=== PATIENT | female | born 1955 | race Caucasian/White ===

== ENCOUNTER 2016-12-04 18:50 | Inpatient (IN) | payer MEDICAID, OTHER ==
[~2016-12-04] VITALS: Ht 149.9 cm; Wt 49.0 kg
[2016-12-04] MEDS ORDERED: ONDANSETRON 4 MG INJ IV STA (19:37)
[2016-12-04] MEDS ORDERED: morphine 2 MG INJ IV STA (19:37)
[2016-12-04] MEDS ORDERED: ASPIRIN 81 MG TAB PO STA (19:37)
[2016-12-04] MEDS ORDERED: BUME1TAB18 PO (19:46)
[2016-12-04] MEDS ORDERED: ASPI81TA3 PO (19:46)
[2016-12-04] MEDS ORDERED: DOCU-159 PO (19:47)
[2016-12-04] MEDS ORDERED: ERGO500037 PO (19:48)
[2016-12-04] MEDS ORDERED: MULTI PO (19:49)
[2016-12-04] MEDS ORDERED: FER325 PO (19:49)
[2016-12-04] MEDS ORDERED: POLY17PO6 PO (19:50)
[2016-12-04] MEDS ORDERED: RANI150T5 PO (19:50)
[2016-12-04 19:52] LABS: ABNORMAL IP MESSAGE 1; HEMATOCRIT 30.6 % (37.0-47.0)
[2016-12-04] MEDS ORDERED: SENN-53 PO (19:52)
[2016-12-04] MEDS ORDERED: GLIM4TAB PO (19:56)
[2016-12-04 19:57] LABS: MEAN CORPUSCULAR HEMOGLOBIN 31.6 pg (29.0-33.0); MEAN CORPUSCULAR HGB CONC 32.7 g/dl (32.0-37.0); MEAN CORPUSCULAR VOLUME 96.8 fl (82.0-101.0); MEAN PLATELET VOLUME 11.1 fl (7.4-10.4); PLATELET COUNT 88 10^3/UL (140-415); RED BLOOD COUNT 3.16 10^6/ul (4.20-5.40); RED CELL DISTRIBUTION WIDTH 17.3 % (11.5-14.5); WHITE BLOOD COUNT 6.4 10^3/ul (4.8-10.8)
[2016-12-04] MEDS ORDERED: ZOF8 PO (19:57)
[2016-12-04 20:11] LABS: INR 1.15; PARTIAL THROMBOPLASTIN TIME 29.3 Sec (25.0-35.0); PROTIME 14.7 Sec (12.2-14.2); PT RATIO 1.1
[2016-12-04] MEDS ORDERED: LANT3I SC (20:12)
[2016-12-04 20:13] LABS: POSITIVE DIFF @See below
[2016-12-04 20:21] LABS: ALBUMIN/GLOBULIN RATIO 0.83; BILIRUBIN,INDIRECT 0.7 mg/dl (0-1.1); BILIRUBIN,TOTAL 0.7 mg/dl (0.2-1.3); CALCIUM 10.1 mg/dl (8.4-10.2); CREATININE 1.3 mg/dl (0.44-1.00); POTASSIUM 4.6 mmol/L (3.5-5.1); TOTAL PROTEIN 8.8 g/dl (6.1-8.1)
[2016-12-04 20:34] LABS: TROPONIN-I 0.025 ng/ml (0.00-0.12)
[2016-12-04 20:45] LABS: EOSINOPHILS # 0.3 10^3/ul (0.0-0.5); LYMPHOCYTES # 1.5 10^3/ul (0.8-2.9); MONOCYTE # 0.6 10^3/ul (0.3-0.9); MONOCYTES % (M) 9 % (0-11); NEUTROPHIL # 3.8 10^3/ul (1.6-7.5)
[2016-12-04 20:47] LABS: PLATELET ESTIMATE DECREASED
--- NOTE | 2016-12-04 20:47 | RADRPT ---
PROCEDURE: XR Chest. CLINICAL INDICATION: Chest pain. TECHNIQUE: Single frontal chest x-ray. COMPARISON: None. FINDINGS: Right internal jugular central venous line tips in the SVC. Heart is normal in size.. There is no congestive heart failure.. Mild bibasilar atelectasis.. There is no pleural effusion. There is no pneumothorax. The osseous structures are unremarkable. IMPRESSION: No CHF or infiltrate. Mild bibasilar atelectasis. RPTAT: HMVK .Alon Yuan MD, Date Time Electronically viewed and signed by .Alon Yuan MD, on 12/04/2016 20:46 .K/
--- NOTE | 2016-12-04 22:02 | ERA ---
ER Documentation Chief Complaint Date/Time DATE: 12/04/16 TIME: 21:58 Chief Complaint bib ra from board and care for chest pain at 1800, given 1 spray nitro ems HPI This is 60-year-old female who is brought in by ambulance from rehab facility for chest pressure. Daughter is here with the patient states that patient had a prolonged stay at [facility] for some type of intra-abdominal infection or abscess. The daughter says they put a drain into drain out the pus in the abdomen. The patient states that 6 PM tonight that she has some substernal chest pressure with difficulty breathing and they called EMS. On arrival EMS put a spray of nitroglycerin which significantly improved her chest pain. She states she has had no cough or fever. The patient is an extremely poor historian. She says the pressure did not radiate to her neck or arms. Currently she has no pain ROS All systems reviewed and are negative except as per history of present illness. Medications Home Meds Reported Medications Insulin Glargine* (Lantus*) 100 Unit/Ml Soln, 30 UNIT SC Q24H, #1 VIAL TAKE 0.3ML Q24H 12/04/16 Ondansetron Hcl* (Zofran*) 8 Mg Tab, 8 MG PO BID Y for NAUSEA AND OR VOMITING, TAB 12/04/16 Glimepiride* (Glimepiride*) 4 Mg Tablet, 4 MG PO WITH BREAKFAST, TAB 12/04/16 Sennosides* (Senna Lax*) 8.6 Mg Tablet, 1 TAB PO QHS, TAB 12/04/16 Ranitidine Hcl* (Ranitidine Hcl*) 150 Mg Tablet, 150 MG PO HS, #30 TAB 12/04/16 Polyethylene Glycol* (Miralax*) 17 Gm Powd.pack, 17 GM PO DAILY Y for NEEDED , #30 PACKET 12/04/16 Multivitamins* (Theragran*) 1 Tab Tab, 1 TAB PO DAILY, TAB 12/04/16 Ferrous Sulfate* (Ferrous Sulfate*) 325 Mg Tabec, 325 MG PO DAILY, TAB 12/04/16 Ergocalciferol (Vitamin D2) (VITAMIN D2) 50,000 Unit Capsule, 51135 UNIT PO Q FRIDAY, CAP 12/04/16 Docusate Sodium* (Docusate Sodium*) 100 Mg Capsule, 100 MG PO BID, #60 CAP 12/04/16 Bumetanide* (Bumetanide*) 1 Mg Tablet, 2 MG PO BID, TAB 12/04/16 Aspirin* (Aspirin* Chew) 81 Mg Tab.chew, 81 MG PO DAILY, TAB.CHEW 12/04/16 Allergies Allergies: Coded Allergies: Penicillins (Unverified Allergy, Unknown, 12/04/16) PMhx/Soc Anesthesia Reaction: No Hx Neurological Disorder: No Hx Respiratory Disorders: Yes (RESPIRATORY FAILURE ) Hx Cardiac Disorders: No Hx Psychiatric Problems: No Hx Miscellaneous Medical Probl: Yes (DIALYSIS, ACUTE RENAL FAILURE, NORMOCYTIC ANEMIA, DKA ) Hx Alcohol Use: No Hx Substance Use: No Hx Tobacco Use: No Smoking Status: Never smoker FmHx Family History: No coronary disease Physical Exam Vitals Vital Signs Date Time Temp Pulse Resp B/P Pulse Ox O2 Delivery O2 Flow Rate FiO2 12/04/16 19:40 Nasal Cannula 2 12/04/16 18:55 100.0 89 16 97/54 100 Room Air 12/04/16 18:55 100.0 87 18 104/54 100 Physical Exam Const: Well-developed, well-nourished, disheveled Head: Atraumatic, normocephalic Eyes: Normal Conjunctiva, PERRLA, EOMI, normal sclera, no nystagmus ENT: Normal External Ears, Nose and Mouth, moist mucus membranes. Neck: Full range of motion. No meningismus, no lymphadenopathy. Resp: Clear to auscultation bilaterally, no wheezing, rhonchi, rales Cardio: Regular rate and rhythm, no murmurs, S1 S2 present Abd: Soft, non tender x 4, non distended. Normal bowel sounds, no guarding or rebound, no pulsitile abdominal masses or bruits Skin: No petechiae or rashes, scattered to the abdomene- ecchymosis , no maculopapular rash Back: No midline or flank tenderness Ext: No cyanosis, or edema, FROM x 4, normal inspection, neurovascularly intact x 4 Neur: Awake and alert, STR 5/5 x 4, sensation intact x 4, no focal findings, cerebellum intact Psych: Normal Mood and Affect Result Diagram: 12/04/16193512/04/161935 Results 24 hrs Laboratory Tests Test 12/04/16 19:36 White Blood Count 6.410^3/ul Red Blood Count 3.1610^6/ul Hemoglobin 10.0g/dl Hematocrit 30.6% Mean Corpuscular Volume 96.8fl Mean Corpuscular Hemoglobin 31.6pg Mean Corpuscular Hemoglobin Concent 32.7g/dl Red Cell Distribution Width 17.3% Platelet Count 8810^3/UL Mean Platelet Volume 11.1fl Neutrophils % % Segmented Neutrophils % (Manual) 59% Band Neutrophils % (Manual) 5% Lymphocytes % % Lymphocytes % (Manual) 23% Monocytes % % Monocytes % (Manual) 9% Eosinophils % % Eosinophils % (Manual) 4.0% Basophils % % Nucleated Red Blood Cells % 0.0/100WBC Neutrophils # 3.810^3/ul Neutrophils # (Manual) 3.810^3/ul Band Neutrophils # 0.310^3/ul Absolute Lymphocytes (Manual) 1.410^3/ul Lymphocytes # 1.510^3/ul Monocytes # 0.610^3/ul Absolute Monocytes (Manual) 0.510^3/ul Eosinophils # 0.310^3/ul Basophils # 10^3/ul Nucleated Red Blood Cells # 10^3/ul Platelet Estimate DECREASED Prothrombin Time 14.7Sec Prothrombin Time Ratio 1.1 INR International Normalized Ratio 1.15 Activated Partial Thromboplast Time 29.3Sec Sodium Level 137mmol/L Potassium Level 4.6mmol/L Chloride Level 96mmol/L Carbon Dioxide Level 25mmol/L Anion Gap 21 Blood Urea Nitrogen 36mg/dl Creatinine 1.30mg/dl Glucose Level 204mg/dl Calcium Level 10.1mg/dl Total Bilirubin 0.7mg/dl Direct Bilirubin 0.00mg/dl Indirect Bilirubin 0.7mg/dl Aspartate Amino Transf (AST/SGOT) 67IU/L Alanine Aminotransferase (ALT/SGPT) 21IU/L Alkaline Phosphatase 152IU/L Troponin I 0.025ng/ml B-Type Natriuretic Peptide 1830PG/ML Total Protein 8.8g/dl Albumin 4.0g/dl Globulin 4.80g/dl Albumin/Globulin Ratio 0.83 Current Medications Medications (Trade) Dose Ordered Sig/Karmen Route PRN Reason Start Time Stop Time Status Last Admin Dose Admin Aspirin (Aspirin) 162 mg ONCE STAT PO 12/04/16 19:37 12/04/16 19:40 DC 12/04/16 19:52 Morphine Sulfate (morphine) 2 mg ONCE STAT IV 12/04/16 19:37 12/04/16 19:40 DC 12/04/16 19:53 Ondansetron HCl (Zofran Inj) 4 mg ONCE STAT IV 12/04/16 19:37 12/04/16 19:40 DC 12/04/16 19:52 Procedures/MDM PROCEDURE: XR Chest. CLINICAL INDICATION: Chest pain. TECHNIQUE: Single frontal chest x-ray. COMPARISON: None. FINDINGS: Right internal jugular central venous line tips in the SVC. Heart is normal in size.. There is no congestive heart failure.. Mild bibasilar atelectasis.. There is no pleural effusion. There is no pneumothorax. The osseous structures are unremarkable. IMPRESSION: No CHF or infiltrate. Mild bibasilar atelectasis. RPTAT: HMVK .Alon Yuan MD, MD Date Time Electronically viewed and signed by .Alon Yuan MD, on 12/04/2016 20:46 .K/ CC: BULL PALAFOX DO EKG: Rate/Rhythm: Normal sinus rhythm with a right superior axis deviation, heart rate86 QRS, ST, QT: NORMAL SD, QRS, QT] Impression: NORMAL EKG Patient's symptoms are concerning for cardiac cause will require inpatient workup and continuous monitoring. Further w/u for ischemia, arrhythmia, PE or dissection will be deferred to the inpatient team. Accepting Care Team: Current data and ongoing care discussed. Time: Time of admission Primary Provider: [XOXOXO] Consulting: [XOXOXO] Outstanding Data: none Departure Diagnosis: Primary Impression: Chest pain Qualified Code: R07.9 - Chest pain, unspecified type Condition: Stable BULL PALAFOX DO Dec 04, 2016 22:02
[2016-12-04] MEDS ORDERED: ONDANSETRON 4 MG INJ IV PRN (22:30)
[2016-12-04] MEDS ORDERED: ACETAMINOPHEN 325 MG TAB PO PRN (22:30)
[2016-12-04 23:54] VITALS: TEMP 100
[2016-12-05] VITALS (11 sets, daily range): BP systolic 102–135; BP diastolic 59–81; PULSE 77–115; RESP 15–18; BMI 35.6
[2016-12-05] MEDS ORDERED: DEXTROSE 50% 50 ML SYRINGE IV PRN ×2 (03:00)
[2016-12-05] MEDS ORDERED: GLUCOSE GEL 15 GRAM TUBE BUCCAL PRN (03:00)
[2016-12-05] MEDS: SOD CHLORIDE 0.9% 1,000 ML IV SCH ×2 (03:00→06:15)
[2016-12-05] MEDS ORDERED: GLUCOSE GEL 15 GRAM TUBE PO PRN ×2 (03:00)
[2016-12-05] MEDS ORDERED: ONDANSETRON 4 MG INJ IV PRN (03:00)
[2016-12-05] MEDS ORDERED: POLYETHYLENE GLYCOL 17 GM PACKET PO PRN (03:00)
[2016-12-05] MEDS ORDERED: DOCUSATE SODIUM 100 MG CAP PO PRN (03:00)
[2016-12-05] MEDS ORDERED: BISACODYL (EC) 5 MG TAB PO PRN (03:00)
[2016-12-05] MEDS ORDERED: GLUCAGON 1 MG INJ IM PRN (03:00)
[2016-12-05] MEDS ORDERED: INSULIN GLARGINE [LANtus] 3 ML PEN SC SCH (03:00)
[2016-12-05] MEDS ORDERED: NACL 0.9% 3 ML SYG IV SCH (03:00)
[2016-12-05] MEDS ORDERED: ACETAMINOPHEN 325 MG TAB PO PRN (03:00)
[2016-12-05] MEDS ORDERED: ONDANSETRON 4 MG TAB PO PRN (03:00)
[2016-12-05 03:13] LABS: ABNORMAL IP MESSAGE 1; BASOPHILS % 0.7 % (0.0-2.0); EOSINOPHILS # 0.1 10^3/ul (0.0-0.5); EOSINOPHILS % 1.5 % (0.0-7.0); HEMATOCRIT 31.1 % (37.0-47.0); HEMOGLOBIN 9.9 g/dl (12.0-16.0); LYMPHOCYTES # 0.9 10^3/ul (0.8-2.9); LYMPHOCYTES % 15.6 % (15.0-51.0); MEAN CORPUSCULAR HEMOGLOBIN 30.7 pg (29.0-33.0); MEAN CORPUSCULAR HGB CONC 31.8 g/dl (32.0-37.0); MEAN CORPUSCULAR VOLUME 96.6 fl (82.0-101.0); MEAN PLATELET VOLUME 10.5 fl (7.4-10.4); MONOCYTE # 0.5 10^3/ul (0.3-0.9); MONOCYTES % 7.9 % (0.0-11.0); NEUTROPHIL # 4.4 10^3/ul (1.6-7.5); NEUTROPHILS % 74.1 % (39.0-77.0); PLATELET COUNT 79 10^3/UL (140-415); RED BLOOD COUNT 3.22 10^6/ul (4.20-5.40); RED CELL DISTRIBUTION WIDTH 17.3 % (11.5-14.5)
[2016-12-05 03:29] LABS: POSITIVE DIFF @See below
[2016-12-05] MEDS ORDERED: PENDING SANTYL ORDER FOR WOUND CARE XX PRN (03:30)
[2016-12-05] MEDS ORDERED: KETOROLAC 15 MG INJ IV ONE (03:51)
[2016-12-05 03:52] LABS: MAGNESIUM 2.3 mg/dl (1.7-2.5)
--- NOTE | 2016-12-05 03:55 | HP ---
Date/Time of Note Date/Time of Note DATE: 12/05/16 TIME: 03:37 Assessment/Plan VTE Prophylaxis VTE Prophylaxis Intervention: SCD's Lines/Catheters IV [facility]from [facility] Saline Lock Urinary Cath still in place: Yes Reason Cath still needed: other (indicate) (clinical condition/deconditioning, illness) Assessment/Plan Chief Complaint/Hosp Course This is a 60-year-old female being admitted to the telemetry floor for: #1 chest pain: Rule out ACS versus musculoskeletal. Trend cardiac troponins, chest x-ray within normal values, 2D echocardiogram, cardiology consult. Patient does have tenderness to palpation of the left anterior chest wall will also provide her one-time dose of Toradol 15 mg IV. Check lipids and TSH. Patient has an elevated BNP but she does not appear to be fluid overloaded, again we will check a echocardiogram to assess her heart morphology. #2 Renal failure, unknown etiology: Patient is currently on hemodialysis however patient does appear to be producing urine in her Robert. She currently goes to dialysis Friday at [facility] and last had an on Friday. At the current time we will consult nephrology for further assistance. Her creatinine right now is 1.30. I do not have previous baseline at this time we will obtain records from [facility] before ordering any further imaging studies. I will though check a UA and fractional excretion sodium. #3 diabetes mellitus: We will check a hemoglobin A1c continue home Lantus dose and put patient on insulin sliding scale. #4 Deconditioning: At the current time I am unsure as to what exactly has let the patient to go from being completely independent to now being bedridden. The daughter herself does not know exactly her medical condition that was treated at recent hospital stay. At the current time will obtain hospital records from [facility], the nursing staff is aware of this and they are going to help in obtaining these records.. Based on her appearance to me there is a possibility that she may have an underlying malignancy, however I am not sure of this and we will obtain further records to confirm. #5 anemia: Normocytic anemia: Etiology of this unknown at this time however this could be secondary to her end-stage renal disease however again there is possibility for underlying malignancy, we will obtain records from [facility] to get a better history. #6 thrombocytopenia: Platelet count is 88. At this time will obtain medical records from [facility], again there is possible concern for underlying malignancy for this patient. If we are unable to ascertain because of thrombocytopenia will consider hematology consultation. #7 DVT GI prophylaxis: SCDs, Protonix Further treatment strategy will be implemented as per the clinical course Problems: HPI/ROS Admit Date/Time Admit Date/Time Dec 04, 2016 at 22:10 Hx of Present Illness Chief complaint: Chest pressure This is 60-year-old female who is brought in by ambulance from rehab facility for chest pressure. Daughter was at the bedside and history is obtained from her as well as the patient however I do feel that some of this history is limited. Daughter is here with the patient states that patient had a prolonged stay at [facility] for some type of intra-abdominal infection or abscess. The daughter states that she had a drain put in her abdomen to take out some pus. She was approximately there for 4 months and then recently was discharged to [facility] which she suspects is a nursing facility. Her mom remains at this time bedridden. She has a Robert catheter in place. The daughter herself does not know exactly what her diagnosis was while she was at the hospital. She was still in the ICU for some time as well. Patient also recently has been started on dialysis and had access placed at the right anterior chest wall The patient states that 6 PM tonight that she has some substernal chest pressure with difficulty breathing and they called EMS. On arrival EMS put a spray of nitroglycerin which significantly improved her chest pain. She states she has had no cough or fever. The patient herself on my examination stated that her chest pressure had improved. She denies any nausea vomiting or fevers though she did state that she had some cold sweats. Allergies: Penicillin Medications: See Jun Const: As per HPI Eyes : No pain discharge or redness or change in visual acuity ENT: No pain, sore throat, congestion, congestion, dysphagia or discharge Respiratory: No shortness of breath, cough, sputum, wheezing, or pleuritic pain Cardiovascular: As per HPI GI : no change in appetite, abdominal pain, nausea, vomiting, diarrhea, constipation, or change in the color his stool Genitourinary: As per HPI Musculoskeletal: No joint pain, back pain, neck pain, restricted range of motion in neck or joints Skin: No rash, bruising or hives Neuro: No headache, dizziness, syncope, seizure, focal weakness Endocrine: No polyuria, polydipsia, temperature intolerance Psych: No hallucination, depression, anxiety or suicidal ideation PMH/Family/Social Past Medical History Recent prolonged approximately 4 month hospital stay including time in the ICU, diabetes mellitus, end-stage renal disease Past Surgical History Past Surgical Hx: no surgical history Family History Significant Family History: no pertinent family hx Social History Alcohol Use: none Smoking Status: Never smoker Drug Use: none Exam/Review of Systems Vital Signs Vitals Vital Signs Date Time Temp Pulse Resp B/P Pulse Ox O2 Delivery O2 Flow Rate FiO2 12/05/16 00:12 84 12/04/16 23:54 100.0 18 116/75 100 Room Air 12/04/16 19:40 2 Exam Exam General: Patient is a frail-appearing female lying in bed with minimal movement but in no acute distress HEENT: Atraumatic, normocephalic. The pupils are equal, round and reactive. Extraocular motor are intact, patchy hair loss Neck: Supple with full range of motion. No rigidity or meningismus Chest: Tender to palpation over the left anterior chest wall, right anterior chest wall dialysis access catheter Lungs: Clear to auscultation bilaterally no crackles rales or wheezing Heart: Normal S1-S2, Regular rhythm and rate. No overt murmurs appreciated Abdomen: Soft , nontender, nondistended , bowel sounds are present. No guarding no rebound tenderness , No masses or organomegaly. No costovertebral temporal angle mass Extremities: Normal to inspection, no edema no cyanosis, strength unable to be assessed at this time as patient is feeling tired Neurologic: Normal mental status, speech normal, cranial nerves II through XII are intact, unable to assess ambulation patient has been bedridden secondary to unknown medical condition Genitourinary: Chronic Robert in place Additional Comments PROCEDURE: XR Chest. CLINICAL INDICATION: Chest pain. TECHNIQUE: Single frontal chest x-ray. COMPARISON: None. FINDINGS: Right internal jugular central venous line tips in the SVC. Heart is normal in size.. There is no congestive heart failure.. Mild bibasilar atelectasis.. There is no pleural effusion. There is no pneumothorax. The osseous structures are unremarkable. IMPRESSION: No CHF or infiltrate. Mild bibasilar atelectasis. RPTAT: HMVK .Alon Yuan MD, Date Time Electronically viewed and signed by .Alon Yuan MD, on 12/04/2016 20:46 .K/ CC: BULL PALAFOX DO EKG: Rate/Rhythm: Normal sinus rhythm with a right superior axis deviation, heart rate86 QRS, ST, QT: NORMAL WI, QRS, QT] Impression: NORMAL EKG As per ED physician documentation Labs Result Diagram: 12/04/16193512/04/161935 Medications Medications Current Medications Ondansetron HCl (Zofran Inj) 4 mg Q6H PRN IV NAUSEA AND/OR VOMITING; Start 02/11 at 03:00 Acetaminophen (Tylenol Tab) 650 mg Q6H PRN PO PAIN LEVEL 1-3 OR FEVER; Start at 03:00 Morphine Sulfate (morphine) 2 mg Q4H PRN IV PAIN LEVEL 7-10; Start 12/05/16 at 03:00 Docusate Sodium (Colace) 100 mg Q12H PRN PO CONSTIPATION; Start 12/05/16 at 03: 00 Bisacodyl (Dulcolax) 5 mg DAILY PRN PO CONSTIPATION; Start 12/05/16 at 03:00 Pantoprazole 40 mg 40 mg DAILY@06 PO ; Start 12/05/16 at 06:00 Sodium Chloride (NS) 1,000 ml @ 75 mls/hr [id number] IV ; Start 12/05/16 at 03:00 Aspirin (Aspirin) 81 mg DAILY PO ; Start 12/05/16 at 09:00 Docusate Sodium (Colace) 100 mg BID PO ; Start 12/05/16 at 09:00 Ferrous Sulfate (Ferrous Sulfate (Ec)) 325 mg DAILY PO ; Start 12/05/16 at 09:00 Insulin Glargine (Lantus) 30 unit Q24H SC ; Start 12/05/16 at 03:00 Multivitamins Therapeutic (Theragran) 1 tab DAILY PO ; Start 12/05/16 at 09:00 Ondansetron HCl (Zofran Tab) 8 mg BID PRN PO NAUSEA AND/OR VOMITING; Start 02/11 at 03:00 Polyethylene Glycol (Miralax) 17 gm DAILY PRN PO NEEDED; Start 12/05/16 at 03:00 Senna (Senokot) 1 tab QHS PO ; Start 12/05/16 at 21:00 Miscellaneous Information 1 ea NOTE XX ; Start 12/05/16 at 03:00 Glucose (Glutose) 15 gm Q15M PRN PO DECREASED GLUCOSE; Start 12/05/16 at 03:00 Glucose (Glutose) 22.5 gm Q15M PRN PO DECREASED GLUCOSE; Start 12/05/16 at 03: 00 Dextrose (D50w Syringe) 25 ml Q15M PRN IV DECREASED GLUCOSE; Start 12/05/16 at 03:00 Dextrose (D50w Syringe) 50 ml Q15M PRN IV DECREASED GLUCOSE; Start 12/05/16 at 03:00 Glucagon (Glucagen) 1 mg Q15M PRN IM DECREASED GLUCOSE; Start 12/05/16 at 03:00 Glucose (Glutose) 15 gm Q15M PRN BUCCAL DECREASED GLUCOSE; Start 12/05/16 at 03 :00 Miscellaneous Information (Pending [facility] Order For Wound Care) This patient caba... PRN PRN XX WOUND CARE; Start 12/05/16 at 03:30 ANGELO MERA Dec 05, 2016 03:47
[2016-12-05 04:01] LABS: CK-MB 6.31 ng/ml (0.0-2.4); TROPONIN-I 0.027 ng/ml (0.00-0.12)
[2016-12-05 04:56] LABS: THYROID STIMULATING HORMONE 2.5 MIU/L (0.465-4.680)
[2016-12-05] MEDS ORDERED: PANTOPRAZOLE (EC) 40 MG TAB PO SCH (06:00)
[2016-12-05] MEDS: ACCU-CHEK XX SCH ×4 (07:30→21:00)
[2016-12-05] MEDS: DOCUSATE SODIUM 100 MG CAP PO SCH ×2 (08:55→21:10)
[2016-12-05] MEDS: ASPIRIN 81 MG TAB PO SCH (08:55)
[2016-12-05] MEDS: MULTIVITAMINS THERAPEUTIC TAB PO SCH (08:55)
[2016-12-05] MEDS: FERROUS SULFATE (EC) 325 MG TAB PO SCH (08:55)
[2016-12-05] MEDS: INSULIN GLARGINE [LANtus] 3 ML PEN SC SCH (09:00)
[2016-12-05 10:49] LABS: CK-MB 5.79 ng/ml (0.0-2.4); TROPONIN-I 0.023 ng/ml (0.00-0.12)
--- NOTE | 2016-12-05 14:30 | PN ---
Date/Time of Note Date/Time of Note DATE: 12/05/16 TIME: 14:14 Assessment/Plan VTE Prophylaxis VTE Prophylaxis Intervention: SCD's Lines/Catheters IV Catheter Type (from Nrsg): Peripheral IV Urinary Cath still in place: Yes Reason Cath still needed: other (indicate) (will talk to nephrology) Assessment/Plan Assessment/Plan 60 yo F with recent [address] [facility] for sepsis 2/2 MSSA bacteremia from groin abscess c/b ARF 2/2 ATN and sepsis requiring HD on which she remains, NSTEMI (type 2), DKA, respiratory failure requiring trach, and critical illness myopathy sent to [facility] 8.3 for HERMES. Pt transferred to [facility] overnight when she complained of chest pain. Etio of chest pain unclear. Given elevated BNP, will check TTE. No evidence of ACS based on negative serial troponin. #chest pain -await TTE -consider cardiology consult in AM pending test results #ARF requiring intermittent HD -renal cs -dc sparks #critical illness myopathy: PT/OT #DM2: continue insulin dispo: possibly back to [facility] in 1-2 days Subjective 24 Hr Interval Summary Free Text/Dictation [facility] notes received. Pt admitted 3..17-11.28.17. Pt with pmhx cryptogenic cirrhosis (?BENOIT). Had presented intiialyl with body pain, CP. Initially admitted to ICU for sepsis, DKA, NSTEMI (type 2, trop max 0.155). Also found to have MSSA bacteremia from R groin abscess, treated with IR drainage 4.4 and 2w of abx. Pt with hypoxic respiratory failure from sepsis, volume overload, critical illness myopathy. Intubated 3.30--> Underwent trach 4.27 Pt with ARF from sepsis/ATN. Started on HD. Pt also noted to have stage 4 coccyx wound. BAL 4.6-->fluid with just inflammation Permacath placed 5.4 Patient also noted to have RLQ mass. sp IR drainage, catheter was in for 3 weeks. Path of drainage contents non malignant, no evidence of fungal infection scheduled discharge meds: bumex, ergocalciferol, iron, lantus/aspart, h2b, miralax, senna. After being transferred to [facility] 8.3, pt transferred to [facility] overnight because she stated that her chest hurt. I spoke to patient this AM. She denied any particular complaints. Stated that she felt very weak. I asked her to sign the ADALI for [place], but she said her arms were too weak for her to write. Exam/Review of Systems Vital Signs Vitals Vital Signs Date Time Temp Pulse Resp B/P Pulse Ox O2 Delivery O2 Flow Rate FiO2 12/05/16 12:00 95 12/05/16 11:20 98.9 18 112/65 100 12/04/16 23:54 Room Air 12/04/16 19:40 2 Intake and Output 12/04/16 12/04/16 12/05/16 15:00 23:00 07:00 Intake Total 125 ml Output Total 350 ml Balance -225 ml Exam frail woman sitting up in bed +permacath in R chest no mrg lungs clear abd soft no rash elevated BNP and CK-MBs noted Results Result Diagram: 12/05/16 0251 12/04/16 1936 Results 24 hrs Laboratory Tests Test 12/04/16 19:36 12/05/16 02:51 12/05/16 09:38 White Blood Count 6.4 6.0 Red Blood Count 3.16 L 3.22 L Hemoglobin 10.0 L 9.9 L Hematocrit 30.6 L 31.1 L Mean Corpuscular Volume 96.8 96.6 Mean Corpuscular Hemoglobin 31.6 30.7 Mean Corpuscular Hemoglobin Concent 32.7 31.8 L Red Cell Distribution Width 17.3 H 17.3 H Platelet Count 88 L 79 L Mean Platelet Volume 11.1 H 10.5 H Neutrophils % 74.1 Segmented Neutrophils % (Manual) 59 Band Neutrophils % (Manual) 5 H Lymphocytes % 15.6 Lymphocytes % (Manual) 23 Monocytes % 7.9 Monocytes % (Manual) 9 Eosinophils % 1.5 Eosinophils % (Manual) 4.0 Basophils % 0.7 Nucleated Red Blood Cells % 0.0 0.0 Neutrophils # 3.8 4.4 Neutrophils # (Manual) 3.8 Band Neutrophils # 0.3 Absolute Lymphocytes (Manual) 1.4 Lymphocytes # 1.5 0.9 Monocytes # 0.6 0.5 Absolute Monocytes (Manual) 0.5 Eosinophils # 0.3 0.1 Basophils # 0.0 Nucleated Red Blood Cells # 0.0 Platelet Estimate DECREASED Prothrombin Time 14.7 H Prothrombin Time Ratio 1.1 INR International Normalized Ratio 1.15 Activated Partial Thromboplast Time 29.3 Sodium Level 137 Potassium Level 4.6 Chloride Level 96 L Carbon Dioxide Level 25 Anion Gap 21 H Blood Urea Nitrogen 36 H Creatinine 1.30 H Glucose Level 204 Calcium Level 10.1 Total Bilirubin 0.7 Direct Bilirubin 0.00 Indirect Bilirubin 0.7 Aspartate Amino Transf (AST/SGOT) 67 H Alanine Aminotransferase (ALT/SGPT) 21 Alkaline Phosphatase 152 H Troponin I 0.025 0.027 0.023 B-Type Natriuretic Peptide 1830 H Total Protein 8.8 H Albumin 4.0 Globulin 4.80 H Albumin/Globulin Ratio 0.83 Hemoglobin A1c 5.2 Magnesium Level 2.3 Creatine Kinase 70 60 Creatine Kinase Index 9.0 9.7 Creatinine Kinase MB (Mass) 6.31 H 5.79 H Thyroid Stimulating Hormone (TSH) 2.500 Medications Medications Current Medications Ondansetron HCl (Zofran Inj) 4 mg Q6H PRN IV NAUSEA AND/OR VOMITING; Start 02/11 at 03:00 Acetaminophen (Tylenol Tab) 650 mg Q6H PRN PO PAIN LEVEL 1-3 OR FEVER; Start at 03:00 Morphine Sulfate (morphine) 2 mg Q4H PRN IV PAIN LEVEL 7-10; Start 12/05/16 at 03:00 Docusate Sodium (Colace) 100 mg Q12H PRN PO CONSTIPATION; Start 12/05/16 at 03: 00 Bisacodyl (Dulcolax) 5 mg DAILY PRN PO CONSTIPATION; Start 12/05/16 at 03:00 Pantoprazole 40 mg 40 mg DAILY@06 PO Last administered on 12/05/16 06:22; Admin Dose 40 MG; Start 12/05/16 at 06:00 Sodium Chloride (NS) 1,000 ml @ 75 mls/hr [id number] IV Last administered on 12/05 06:15; Admin Dose 75 MLS/HR; Start 12/05/16 at 03:00 Aspirin (Aspirin) 81 mg DAILY PO Last administered on 12/05/16 08:55; Admin Dose 81 MG; Start 12/05/16 at 09:00 Docusate Sodium (Colace) 100 mg BID PO Last administered on 12/05/16 08:55; Admin Dose 100 MG; Start 12/05/16 at 09:00 Ferrous Sulfate (Ferrous Sulfate (Ec)) 325 mg DAILY PO Last administered on 08:55; Admin Dose 325 MG; Start 12/05/16 at 09:00 Multivitamins Therapeutic (Theragran) 1 tab DAILY PO Last administered on 08:55; Admin Dose 1 TAB; Start 12/05/16 at 09:00 Ondansetron HCl (Zofran Tab) 8 mg BID PRN PO NAUSEA AND/OR VOMITING; Start 02/11 at 03:00 Polyethylene Glycol (Miralax) 17 gm DAILY PRN PO NEEDED; Start 12/05/16 at 03:00 Senna (Senokot) 1 tab QHS PO ; Start 12/05/16 at 21:00 Miscellaneous Information 1 ea NOTE XX ; Start 12/05/16 at 03:00 Glucose (Glutose) 15 gm Q15M PRN PO DECREASED GLUCOSE; Start 12/05/16 at 03:00 Glucose (Glutose) 22.5 gm Q15M PRN PO DECREASED GLUCOSE; Start 12/05/16 at 03: 00 Dextrose (D50w Syringe) 25 ml Q15M PRN IV DECREASED GLUCOSE; Start 12/05/16 at 03:00 Dextrose (D50w Syringe) 50 ml Q15M PRN IV DECREASED GLUCOSE; Start 12/05/16 at 03:00 Glucagon (Glucagen) 1 mg Q15M PRN IM DECREASED GLUCOSE; Start 12/05/16 at 03:00 Glucose (Glutose) 15 gm Q15M PRN BUCCAL DECREASED GLUCOSE; Start 12/05/16 at 03 :00 Miscellaneous Information (Pending [facility] Order For Wound Care) This patient caba... PRN PRN XX WOUND CARE; Start 12/05/16 at 03:30 Insulin Glargine (Lantus) 30 unit Q24H SC Last administered on 12/05/16 09:00 ; Admin Dose 30 UNIT; Start 12/05/16 at 06:00 BABS RODRIGUEZ MD Dec 05, 2016 14:25
[2016-12-05 15:49] LABS: ALBUMIN 4.1 g/dl (3.3-4.9); ALBUMIN/GLOBULIN RATIO 0.91; BILIRUBIN,INDIRECT 1.1 mg/dl (0-1.1); BILIRUBIN,TOTAL 1.1 mg/dl (0.2-1.3); CALCIUM 10.4 mg/dl (8.4-10.2); CREATININE 1.63 mg/dl (0.44-1.00); PHOSPHORUS 4.3 mg/dl (2.5-4.9); POTASSIUM 4.2 mmol/L (3.5-5.1); TOTAL PROTEIN 8.6 g/dl (6.1-8.1)
--- NOTE | 2016-12-05 16:00 | RADRPT ---
PROCEDURE: US Abdomen and Retroperitoneum. CLINICAL INDICATION: Abnormal liver function tests. TECHNIQUE: Multiple real-time longitudinal and transverse images were acquired of the patient's ab domen and retroperitoneum utilizing a curved array transducer. COMPARISON: No prior studies are available for comparison. FINDINGS: The liver is normal in size and has a diffusely heterogeneous appearance with mildly nodular surface . There is no focal hepatic lesion. Color Doppler and pulsed Doppler sonography demonstrate normal a ntegrade flow in the portal vein. The gallbladder is normal with no stones or wall thickening. The bile ducts are normal with the common bile duct measuring 4.1 mm in diameter. The spleen is enlarged. There is no focal splenic lesion. The pancreas is partially seen and is unremarkable. There is no free fluid. The right kidney measures 11.7 cm and the left kidney measures 12.2 cm. There is no renal mass. There is no hydronephrosis or calculus. The abdominal aorta is not dilated. The inferior vena cava is unremarkable. IMPRESSION: 1. Diffusely heterogeneous liver with nodular surface. This may indicate cirrhosis. An infiltrati ve process can also give this appearance. Clinical correlation is advised. 2. Splenomegaly. 3. Otherwise normal ultrasound of the abdomen and retroperitoneum. RPTAT: QQ .Jarod Strange MD, Date Time Electronically viewed and signed by .Jarod Strange MD, on 12/05/2016 15:59 .R/
[2016-12-05 16:32] LABS: IRON 23 ug/dl (35-150)
[2016-12-05 16:41] LABS: TOTAL IRON BINDING CAPACITY 229 ug/dl (241-421)
[2016-12-05] MEDS: BUMETANIDE 1 MG TAB PO SCH (17:30)
--- NOTE | 2016-12-05 17:34 | CONS ---
DATE OF ADMISSION: 12/04/2016 DATE OF CONSULTATION: 12/05/2016 Thank you, Dr. Do, for asking me to participate in the medical management of this patient. REASON FOR CONSULTATION: Renal failure. HISTORY OF PRESENT ILLNESS: This 60-year-old female was admitted yesterday through the emergency room after she presented with chest pain. The patient is [place] speaking and a poor historian; however, she has her 2 daughters who were in the room with her and speak [place] Citizen. According to the daughters, of the patient was in her usual state of health until June of this year when she developed some right-sided abdominal pain and was admitted to [facility]. While in the hospital the patient was found to have a "blood infection" and eventually her organs failed. The patient eventually required intubation and respiratory support on the ventilator because of respiratory failure. She eventually had to have a tracheostomy placed. She was on the ventilator for approximately 3 months. In addition to the respiratory failure, the patient had renal failure and required dialysis. The patient has been on hemodialysis at [facility]. The patient was then discharged 1 week ago to a local long-term. At the long-term the patient developed chest pain yesterday and was brought to [facility] for further evaluation and treatment. The patient has been getting dialyzed the past week at [facility] in [place]. 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 According to the daughters, the patient was having lower abdominal pain for some time. While in [facility], the patient was found to have a "growth" in the lower abdomen. Biopsies were attempted twice, but were unsuccessful. They told the daughter that this could be cancer, but no definite diagnosis was made. The patient apparently has been eating. The patient has, however, lost weight during this current illness. The patient has had diabetes and was controlled with pills up until recently when she was on insulin at [facility]. PAST MEDICAL HISTORY: Remarkable for type 2 diabetes mellitus, which she has had for approximately 4 years. The patient has had no history of hypertension, heart disease, asthma. There is some question that the patient may have had a urinary tract infection. The patient has had other medical issues, according to the chart, including anemia and thrombocytopenia. ALLERGIES: ALLERGY TO PENICILLIN. MEDICATION: Include the following, senna 1 tablet daily, aspirin 81 mg a day, Docusate sodium 100 mg twice a day, ferrous sulfate 325 mg a day, multivitamins 1 daily, Pantoprazole 40 mg a day, Lantus insulin 30 units a day, Zofran p.r.n., acetaminophen p.r.n. morphine sulfate 2 mg IV p.r.n. pain, MiraLAX p.r.n. PHYSICAL EXAMINATION: GENERAL: At this time reveals a cachectic female in no apparent distress. She is awake and alert. She has a right internal jugular PermCath in place which was being used for hemodialysis. HEENT: Head normocephalic. Eyes, extraocular muscles intact. Nose and mouth are normal. NECK: Supple. No neck vein distention. There is a scar over the neck midline probably from previous tracheostomy. She has no neck vein distention. CHEST: She is tender over the left upper chest wall. LUNGS: Clear to auscultation and percussion. HEART: Regular rhythm. No murmurs, gallops, or rubs. ABDOMEN: Soft, nontender. She does have a Robert catheter in place. EXTREMITIES: No peripheral edema. NEUROLOGIC: There are no obvious focal neurologic deficits she is diffusely weak. LABORATORY: Labs done yesterday, sodium 137, potassium 4.6, carbon dioxide 25, chloride 96, BUN 36, creatinine 1.3. Her BNP is elevated at 1830. Hemoglobin 9.9, hematocrit 31.1, platelets 79,000, white blood count 6000. Chest x-ray, no CHF or infiltrates, mild bibasilar atelectasis. IMPRESSION: 1. Renal failure. This 60-year-old female presents now with a history of acute renal failure that started after being septic at [facility]. The patient eventually went on to respiratory failure requiring intubation, then tracheostomy and ventilator support. She apparently had acute renal failure and required dialysis. She was last dialyzed 2 days ago at the [facility] unit. Her renal function seems to have improved according to her most recent labs. She is putting out urine. It is possible that the patient has had recovery of renal function. She may well have had an episode of acute tubular necrosis, which has recovered. 2. Anemia, thrombocytopenia. 3. Malnourished. 4. Type 2 diabetes mellitus. 5. History of respiratory failure on ventilator, now off. PLAN: 1. I will hold off on further hemodialysis at this time. I will check her labs today and tomorrow. I will follow her urine output. 2. Renal ultrasound. 3. Continue current medications. I would avoid nephrotoxic agents such as nonsteroidal anti-inflammatory drugs or radiographic dye studies . I will continue to follow the patient along with you. Dictated By: Patrice Burr MD /godfrey/alban /Document#: [id number] MTDD
[2016-12-05] MEDS: RANITIDINE 150 MG TAB PO SCH (21:10)
[2016-12-05] MEDS: SENNA TAB PO SCH (21:10)
--- NOTE | 2016-12-05 22:17 | RADRPT ---
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 Physician: ANGELO MERA Quality: Adequate Procedures: Transthoracic echocardiogram with complete 2D, M-Mode, and doppler examination. Indications: Chest Pain. 2D/M Mode Doppler Measurement Value Normal Ranges Measurement Value Normal Ranges LVIDd 2D 4.2 3.5 - 5.6 cm AV Peak Micheal 1.4 m/sec LVIDs 2D 2.7 2.1 - 4.1 cm AV Peak PG 8.0 mmHg FS 2D 34.5 % LVOT Peak Micheal 1.1 m/sec LVPWd 2D 1.0 0.6 - 1.1 cm LVOT Peak PG 5.0 mmHg IVSd 2D 1.0 0.6 - 1.1 cm MV E Peak Micheal 0.7 m/sec IVS/LVPW 2D 1.0 MV A Peak Micheal 1.2 m/sec AoR Diam 2D 2.4 2.0 - 3.7 cm MV E/A 0.6 LA/Ao 2D 1 0 - 1 MV Decel Time 180 msec EDV 2D 72.5 cm3 MV E/A 0.6 ESV 2D 20.3 cm3 TR Peak Micheal 2.7 m/sec LA Dimen 2D 3.0 2.3 - 4.0 cm TR Peak PG 29.0 mmHg RVSP 32.0 mmHg Findings Left Ventricle: Normal left ventricular systolic function. Normal left ventricular cavity size. Normal left ventricular wall thickness. Ejection fraction is visually estimated at 6065 %. Tissue Doppler/Mitral Doppler indices are consistent with impaired relaxation (Stage I diastolic dysfunction). Right Ventricle: Normal right ventricular size. Normal right ventricular systolic function. Left Atrium: The left atrium is normal in size. Right Atrium: The right atrium is normal in size. Mitral Valve: Mild mitral leaflet calcification. Mild mitral annular calcification. Trace mitral regurgitation. Aortic Valve: Normal appearance of the aortic valve. No significant aortic stenosis or insufficiency. Tricuspid Valve: Normal appearance of the tricuspid valve. Estimated peak PA systolic pressure 32 mmHg. There is mild tricuspid regurgitation. Pulmonic Valve: Pulmonic valve not well visualized. There is trace pulmonic regurgitation. Pericardium: Normal pericardium with no significant pericardial effusion. Aorta: Normal aortic root. IVC: Normal size and normal respiratory collapse consistent with normal right atrial pressure. Conclusions Normal left ventricular systolic function. Normal left ventricular cavity size. Normal left ventricular wall thickness. Ejection fraction is visually estimated at 60-65 %. Tissue Doppler/Mitral Doppler indices are consistent with impaired relaxation (Stage I diastolic dysfunction). Mild mitral leaflet calcification. Mild mitral annular calcification. Trace mitral regurgitation. Normal appearance of the tricuspid valve. Estimated peak PA systolic pressure 32 mmHg. There is mild tricuspid regurgitation. Pulmonic valve not well visualized. There is trace pulmonic regurgitation. Electronically Signed By: Tim Padgett 05-Dec-2016 22:16:37 -0700 Patient Name: SUZETTE MULLINS Study Date: 05-Dec-[id number]
[2016-12-06] VITALS (12 sets, daily range): BP systolic 99–118; BP diastolic 59–70; PULSE 87–97; RESP 16–20
[2016-12-06] MEDS: BUMETANIDE 1 MG TAB PO SCH (05:46)
[2016-12-06] MEDS: INSULIN GLARGINE [LANtus] 3 ML PEN SC SCH (05:48)
[2016-12-06 06:44] LABS: PROTEIN, TOTAL 7.8 g/dL (6.1-8.1)
[2016-12-06] MEDS: ACCU-CHEK XX SCH ×4 (07:48→21:00)
[2016-12-06 08:14] LABS: ABNORMAL IP MESSAGE 1; BASOPHIL # 0.1 10^3/ul (0.0-0.1); BASOPHILS % 0.8 % (0.0-2.0); EOSINOPHILS % 0.2 % (0.0-7.0); HEMATOCRIT 30.8 % (37.0-47.0); LYMPHOCYTES # 1.3 10^3/ul (0.8-2.9); LYMPHOCYTES % 19.9 % (15.0-51.0); MEAN CORPUSCULAR HEMOGLOBIN 31.1 pg (29.0-33.0); MEAN CORPUSCULAR HGB CONC 32.5 g/dl (32.0-37.0); MEAN CORPUSCULAR VOLUME 95.7 fl (82.0-101.0); MEAN PLATELET VOLUME 10.5 fl (7.4-10.4); MONOCYTE # 0.5 10^3/ul (0.3-0.9); MONOCYTES % 7.6 % (0.0-11.0); NEUTROPHIL # 4.6 10^3/ul (1.6-7.5); NEUTROPHILS % 71.3 % (39.0-77.0); RED BLOOD COUNT 3.22 10^6/ul (4.20-5.40); RED CELL DISTRIBUTION WIDTH 17.2 % (11.5-14.5); WHITE BLOOD COUNT 6.4 10^3/ul (4.8-10.8)
[2016-12-06 08:20] LABS: PLATELET COUNT 76 10^3/UL (140-415)
[2016-12-06] MEDS: MULTIVITAMINS THERAPEUTIC TAB PO SCH (08:39)
[2016-12-06] MEDS: ASPIRIN 81 MG TAB PO SCH (08:39)
[2016-12-06] MEDS: FERROUS SULFATE (EC) 325 MG TAB PO SCH (08:39)
[2016-12-06] MEDS: DOCUSATE SODIUM 100 MG CAP PO SCH ×2 (08:39→21:02)
[2016-12-06 08:46] LABS: ALBUMIN 3.9 g/dl (3.3-4.9); ALBUMIN/GLOBULIN RATIO 0.84; CALCIUM 10.3 mg/dl (8.4-10.2); CREATININE 1.83 mg/dl (0.44-1.00); TOTAL PROTEIN 8.5 g/dl (6.1-8.1)
--- NOTE | 2016-12-06 10:04 | CONS ---
Date/Time of Note Date/Time of Note DATE: 12/06/16 TIME: 09:55 Assessment/Plan Assessment/Plan Chief Complaint/Hosp Course 1. Renal failure. This patient was previously on hemodialysis. She was last dialyzed on 12/03/2016. She is otherwise doing well. Her renal function has decreased over the last 2 days however she has been in negative fluid balance and is on Bumex. I will discontinue the Bumex. She has no edema and her chest x-ray is clear. Will monitor lab tests over the next several days to see if she improves renal function and does not need further dialysis. 2. History of staph sepsis. She was at [facility] and had a right groin abscess and then subsequent respiratory failure requiring a ventilator and then acute renal failure requiring dialysis. I suspect that she had acute tubular necrosis which has improved. Hopefully she will not need further dialysis. This remains to be seen. Will follow labs and her urine output. 3. Type 2 diabetes mellitus 4. Malnourished 5. Chest pain which seems to be due to left chest wall tenderness. Problems: Consultation Date/Type/Reason Admit Date/Time Dec 04, 2016 at 22:10 Initial Consult Date 24 HR Interval Summary Free Text/Dictation she is feeling better . She just finished eating breakfast. Her daughters are in the room with her. The patient denies any pain. Constitutional: improved, no complaints Exam/Review of Systems Vital Signs Vitals Vital Signs Date Time Temp Pulse Resp B/P Pulse Ox O2 Delivery O2 Flow Rate FiO2 12/06/16 09:00 88 12/06/16 07:45 97.9 20 116/68 98 12/04/16 23:54 Room Air 12/04/16 19:40 2 Intake and Output 12/05/16 12/05/16 12/06/16 15:00 23:00 07:00 Intake Total 500 ml 250 ml Output Total 900 ml 600 ml Balance -400 ml -350 ml Exam Constitutional: alert, frail, oriented ENMT: nl external ears & nose, nl lips & teeth, nl nasal mucosa & septum Neck: non-tender, supple Respiratory: clear to auscultation, normal air movement Cardiovascular: regular rate and rhythm Gastrointestinal: non-tender, soft Musculoskeletal: nl extremities to inspection Results Result Diagram: 12/06/16 0725 12/06/16 0725 Results 24 hrs Laboratory Tests Test 12/05/16 15:09 12/05/16 15:20 12/05/16 17:25 12/05/16 20:27 Bedside Glucose 71 97 105 Sodium Level 140 Potassium Level 4.2 Chloride Level 100 Carbon Dioxide Level 25 Anion Gap 19 H Blood Urea Nitrogen 39 H Creatinine 1.63 H Glucose Level 74 # Calcium Level 10.4 H Phosphorus Level 4.3 Iron Level 23 L Total Iron Binding Capacity 229 L Percent Iron Saturation 10 L Ferritin 525.0 H Total Bilirubin 1.1 Direct Bilirubin 0.00 Indirect Bilirubin 1.1 Aspartate Amino Transf (AST/SGOT) 45 Alanine Aminotransferase (ALT/SGPT) 31 Alkaline Phosphatase 162 H Total Protein 8.6 H Total Protein (PEP) 7.8 Albumin 4.1 Albumin (PEP) Pending Globulin 4.50 H Albumin/Globulin Ratio 0.91 [id number] Pending [id number] Pending Beta Globulins Pending Gamma Globulins Pending Protein Electrophoresis Interpret Pending Parathyroid Hormone (Intact) Test 12/06/16 05:45 12/06/16 07:25 12/06/16 07:48 Bedside Glucose 95 89 White Blood Count 6.4 Red Blood Count 3.22 L Hemoglobin 10.0 L Hematocrit 30.8 L Mean Corpuscular Volume 95.7 Mean Corpuscular Hemoglobin 31.1 Mean Corpuscular Hemoglobin Concent 32.5 Red Cell Distribution Width 17.2 H Platelet Count 76 L Mean Platelet Volume 10.5 H Neutrophils % 71.3 Lymphocytes % 19.9 Monocytes % 7.6 Eosinophils % 0.2 Basophils % 0.8 Nucleated Red Blood Cells % 0.0 Neutrophils # 4.6 Lymphocytes # 1.3 Monocytes # 0.5 Eosinophils # 0.0 Basophils # 0.1 Nucleated Red Blood Cells # 0.0 Sodium Level 136 Potassium Level 4.0 Chloride Level 96 L Carbon Dioxide Level 25 Anion Gap 19 H Blood Urea Nitrogen 45 H Creatinine 1.83 H Glucose Level 80 Calcium Level 10.3 H Total Bilirubin 1.0 Direct Bilirubin 0.00 Indirect Bilirubin 1.0 Aspartate Amino Transf (AST/SGOT) 48 H Alanine Aminotransferase (ALT/SGPT) 32 Alkaline Phosphatase 151 H Total Protein 8.5 H Albumin 3.9 Globulin 4.60 H Albumin/Globulin Ratio 0.84 Medications Medications Current Medications Ondansetron HCl (Zofran Inj) 4 mg Q6H PRN IV NAUSEA AND/OR VOMITING; Start 02/11 at 03:00 Acetaminophen (Tylenol Tab) 650 mg Q6H PRN PO PAIN LEVEL 1-3 OR FEVER; Start at 03:00 Morphine Sulfate (morphine) 2 mg Q4H PRN IV PAIN LEVEL 7-10; Start 12/05/16 at 03:00 Docusate Sodium (Colace) 100 mg Q12H PRN PO CONSTIPATION; Start 12/05/16 at 03: 00 Bisacodyl (Dulcolax) 5 mg DAILY PRN PO CONSTIPATION; Start 12/05/16 at 03:00 Aspirin (Aspirin) 81 mg DAILY PO Last administered on 12/06/16 08:39; Admin Dose 81 MG; Start 12/05/16 at 09:00 Docusate Sodium (Colace) 100 mg BID PO Last administered on 12/06/16 08:39; Admin Dose 100 MG; Start 12/05/16 at 09:00 Ferrous Sulfate (Ferrous Sulfate (Ec)) 325 mg DAILY PO Last administered on 08:39; Admin Dose 325 MG; Start 12/05/16 at 09:00 Multivitamins Therapeutic (Theragran) 1 tab DAILY PO Last administered on 08:39; Admin Dose 1 TAB; Start 12/05/16 at 09:00 Ondansetron HCl (Zofran Tab) 8 mg BID PRN PO NAUSEA AND/OR VOMITING; Start 02/11 at 03:00 Polyethylene Glycol (Miralax) 17 gm DAILY PRN PO NEEDED; Start 12/05/16 at 03:00 Senna (Senokot) 1 tab QHS PO Last administered on 12/05/16 21:10; Admin Dose 1 TAB; Start 12/05/16 at 21:00 Miscellaneous Information 1 ea NOTE XX ; Start 12/05/16 at 03:00 Glucose (Glutose) 15 gm Q15M PRN PO DECREASED GLUCOSE; Start 12/05/16 at 03:00 Glucose (Glutose) 22.5 gm Q15M PRN PO DECREASED GLUCOSE; Start 12/05/16 at 03: 00 Dextrose (D50w Syringe) 25 ml Q15M PRN IV DECREASED GLUCOSE; Start 12/05/16 at 03:00 Dextrose (D50w Syringe) 50 ml Q15M PRN IV DECREASED GLUCOSE; Start 12/05/16 at 03:00 Glucagon (Glucagen) 1 mg Q15M PRN IM DECREASED GLUCOSE; Start 12/05/16 at 03:00 Glucose (Glutose) 15 gm Q15M PRN BUCCAL DECREASED GLUCOSE; Start 12/05/16 at 03 :00 Miscellaneous Information (Pending Santyl Order For Wound Care) This patient caba... PRN PRN XX WOUND CARE; Start 12/05/16 at 03:30 Insulin Glargine (Lantus) 30 unit Q24H SC Last administered on 12/06/16 05:48 ; Admin Dose 30 UNIT; Start 12/05/16 at 06:00 Ranitidine HCl (Zantac) 150 mg HS PO Last administered on 12/05/16 21:10; Admin Dose 150 MG; Start 12/05/16 at 21:00 MELVINA FARAH MD Dec 06, 2016 10:04
[2016-12-06] MEDS: SOD FERRIC GLUC COMPLX 125 MG in SOD CHLORIDE 0.9% 100 ML IVPB SCH (12:13)
[2016-12-06 13:25] LABS: ADD UMIC YES; UR ASCORBIC ACID NEGATIVE (NEGATIVE); UR BILIRUBIN (Dip) NEGATIVE (NEGATIVE); UR BLOOD (Dip) 2+ mg/dL (NEGATIVE); UR CLARITY CLOUDY (CLEAR); UR COLOR YELLOW (YELLOW); UR GLUCOSE (Dip) NEGATIVE (NEGATIVE); UR KETONES (Dip) NEGATIVE (NEGATIVE); UR LEUKOCYTE ESTERASE (Dip) 3+ Leu/ul (NEGATIVE); UR NITRITE (Dip) NEGATIVE (NEGATIVE); UR RBC 10 /HPF (0-5); UR SPECIFIC GRAVITY (Dip) 1.009 (1.003-1.030); UR TOTAL PROTEIN (Dip) NEGATIVE (NEGATIVE); UR UROBILINOGEN (Dip) NEGATIVE (NEGATIVE); UR WBC CLUMPS MANY /HPF (NONE SEEN)
[2016-12-06 13:43] LABS: PROTEIN/CREAT RATIO 1.7 RATIO
--- NOTE | 2016-12-06 16:12 | PN ---
Date/Time of Note Date/Time of Note DATE: 12/06/16 TIME: 16:11 Assessment/Plan VTE Prophylaxis VTE Prophylaxis Intervention: SCD's Lines/Catheters IV Catheter Type (from Nrsg): PERMA CATH Urinary Cath still in place: Yes Reason Cath still needed: other (indicate) (not needed) Assessment/Plan Assessment/Plan 60 yo F with recent 4 month hospitalization at [facility] for sepsis 2/2 MSSA bacteremia from groin abscess c/b ARF 2/2 ATN and sepsis requiring HD on which she remains, NSTEMI (type 2), DKA, respiratory failure requiring trach, and critical illness myopathy sent to [facility] 8.3 for HERMES. Pt transferred to [facility] 8.9 when she complained of chest pain. #chest pain: likely MSK in origin. however cannot use NSAID given tenuous renal status #ARF requiring intermittent HD -renal on cs -dc sparks #critical illness myopathy: PT/OT #DM2: continue insulin dispo: possibly back to SNF in AM Subjective 24 Hr Interval Summary Free Text/Dictation Feels ok. chest pain much better. only noticeable with palpation of L side of chest wall Exam/Review of Systems Vital Signs Vitals Vital Signs Date Time Temp Pulse Resp B/P Pulse Ox O2 Delivery O2 Flow Rate FiO2 12/06/16 15:43 100.1 99 20 110/61 98 12/04/16 23:54 Room Air 12/04/16 19:40 2 Intake and Output 12/05/16 12/05/16 12/06/16 15:00 23:00 07:00 Intake Total 500 ml 250 ml Output Total 900 ml 600 ml Balance -400 ml -350 ml Exam nad sitting up in bed no mrg +ttp l sterno/costal joints abd soft no rashes TTE with nl EF, grade I DD Results Result Diagram: 12/06/1625 12/06/16 0725 Results 24 hrs Laboratory Tests Test 12/05/16 17:25 12/05/16 20:27 12/06/16 05:45 12/06/16 07:25 Bedside Glucose 97 105 95 White Blood Count 6.4 Red Blood Count 3.22 L Hemoglobin 10.0 L Hematocrit 30.8 L Mean Corpuscular Volume 95.7 Mean Corpuscular Hemoglobin 31.1 Mean Corpuscular Hemoglobin Concent 32.5 Red Cell Distribution Width 17.2 H Platelet Count 76 L Mean Platelet Volume 10.5 H Neutrophils % 71.3 Lymphocytes % 19.9 Monocytes % 7.6 Eosinophils % 0.2 Basophils % 0.8 Nucleated Red Blood Cells % 0.0 Neutrophils # 4.6 Lymphocytes # 1.3 Monocytes # 0.5 Eosinophils # 0.0 Basophils # 0.1 Nucleated Red Blood Cells # 0.0 Sodium Level 136 Potassium Level 4.0 Chloride Level 96 L Carbon Dioxide Level 25 Anion Gap 19 H Blood Urea Nitrogen 45 H Creatinine 1.83 H Glucose Level 80 Calcium Level 10.3 H Total Bilirubin 1.0 Direct Bilirubin 0.00 Indirect Bilirubin 1.0 Aspartate Amino Transf (AST/SGOT) 48 H Alanine Aminotransferase (ALT/SGPT) 32 Alkaline Phosphatase 151 H Total Protein 8.5 H Albumin 3.9 Globulin 4.60 H Albumin/Globulin Ratio 0.84 Test 12/06/16 07:48 12/06/16 10:35 12/06/16 11:24 Bedside Glucose 89 126 Urine Color YELLOW Urine Clarity CLOUDY A Urine pH 6.0 Urine Specific [place] 1.009 Urine Ketones NEGATIVE Urine Nitrite NEGATIVE Urine Bilirubin NEGATIVE Urine Urobilinogen NEGATIVE Urine Leukocyte Esterase 3+ H Urine Microscopic RBC 10 H Urine Microscopic WBC 107 H Urine Hemoglobin 2+ H Urine Random Creatinine 22.86 Urine Protein/Creatinine Ratio 1.70 Urine Glucose NEGATIVE Urine Total Protein 39.0 H Medications Medications Current Medications Ondansetron HCl (Zofran Inj) 4 mg Q6H PRN IV NAUSEA AND/OR VOMITING; Start 02/11 at 03:00 Acetaminophen (Tylenol Tab) 650 mg Q6H PRN PO PAIN LEVEL 1-3 OR FEVER Last administered on 12/06/16 16:05; Admin Dose 650 MG; Start 12/05/16 at 03:00 Morphine Sulfate (morphine) 2 mg Q4H PRN IV PAIN LEVEL 7-10; Start 12/05/16 at 03:00 Docusate Sodium (Colace) 100 mg Q12H PRN PO CONSTIPATION; Start 12/05/16 at 03: 00 Bisacodyl (Dulcolax) 5 mg DAILY PRN PO CONSTIPATION; Start 12/05/16 at 03:00 Aspirin (Aspirin) 81 mg DAILY PO Last administered on 12/06/16 08:39; Admin Dose 81 MG; Start 12/05/16 at 09:00 Docusate Sodium (Colace) 100 mg BID PO Last administered on 12/06/16 08:39; Admin Dose 100 MG; Start 12/05/16 at 09:00 Ferrous Sulfate (Ferrous Sulfate (Ec)) 325 mg DAILY PO Last administered on 08:39; Admin Dose 325 MG; Start 12/05/16 at 09:00 Multivitamins Therapeutic (Theragran) 1 tab DAILY PO Last administered on 08:39; Admin Dose 1 TAB; Start 12/05/16 at 09:00 Ondansetron HCl (Zofran Tab) 8 mg BID PRN PO NAUSEA AND/OR VOMITING; Start 02/11 at 03:00 Polyethylene Glycol (Miralax) 17 gm DAILY PRN PO NEEDED; Start 12/05/16 at 03:00 Senna (Senokot) 1 tab QHS PO Last administered on 12/05/16 21:10; Admin Dose 1 TAB; Start 12/05/16 at 21:00 Miscellaneous Information 1 ea NOTE XX ; Start 12/05/16 at 03:00 Glucose (Glutose) 15 gm Q15M PRN PO DECREASED GLUCOSE; Start 12/05/16 at 03:00 Glucose (Glutose) 22.5 gm Q15M PRN PO DECREASED GLUCOSE; Start 12/05/16 at 03: 00 Dextrose (D50w Syringe) 25 ml Q15M PRN IV DECREASED GLUCOSE; Start 12/05/16 at 03:00 Dextrose (D50w Syringe) 50 ml Q15M PRN IV DECREASED GLUCOSE; Start 12/05/16 at 03:00 Glucagon (Glucagen) 1 mg Q15M PRN IM DECREASED GLUCOSE; Start 12/05/16 at 03:00 Glucose (Glutose) 15 gm Q15M PRN BUCCAL DECREASED GLUCOSE; Start 12/05/16 at 03 :00 Miscellaneous Information (Pending [facility] Order For Wound Care) This patient caba... PRN PRN XX WOUND CARE; Start 12/05/16 at 03:30 Insulin Glargine (Lantus) 30 unit Q24H SC Last administered on 12/06/16 05:48 ; Admin Dose 30 UNIT; Start 12/05/16 at 06:00 Ranitidine HCl 150 mg 150 mg HS PO Last administered on 12/05/16 21:10; Admin Dose 150 MG; Start 12/05/16 at 21:00 Ferric Sodium Gluconate Complex/ Sodium Chloride (Ferrlecit/NS) 110 ml @ 100 mls/hr Q24H IVPB Last administered on 12/06/16 12:13; Admin Dose 100 MLS/HR; Start 12/06/16 at 12:00; Stop 12/08/16 at 13:05 BABS RODRIGUEZ MD Dec 06, 2016 16:12
[2016-12-06 18:23] LABS: ALBUMIN 3.7 g/dL (3.8-4.8)
[2016-12-06] MEDS: SENNA TAB PO SCH (21:03)
[2016-12-06] MEDS: RANITIDINE 150 MG TAB PO SCH (21:07)
[2016-12-07] VITALS (10 sets, daily range): BP systolic 96–120; BP diastolic 53–62; PULSE 76–81; RESP 16–19
[2016-12-07] MEDS: INSULIN GLARGINE [LANtus] 3 ML PEN SC SCH (05:55)
[2016-12-07] MEDS: ACCU-CHEK XX SCH ×4 (07:41→21:00)
[2016-12-07 07:53] LABS: ABNORMAL IP MESSAGE 1; BASOPHILS % 0.8 % (0.0-2.0); EOSINOPHILS % 0.8 % (0.0-7.0); HEMATOCRIT 27.8 % (37.0-47.0); HEMOGLOBIN 9.3 g/dl (12.0-16.0); LYMPHOCYTES # 1.2 10^3/ul (0.8-2.9); LYMPHOCYTES % 24.2 % (15.0-51.0); MEAN CORPUSCULAR HEMOGLOBIN 31.3 pg (29.0-33.0); MEAN CORPUSCULAR HGB CONC 33.5 g/dl (32.0-37.0); MEAN CORPUSCULAR VOLUME 93.6 fl (82.0-101.0); MEAN PLATELET VOLUME 10.4 fl (7.4-10.4); MONOCYTE # 0.4 10^3/ul (0.3-0.9); MONOCYTES % 7.5 % (0.0-11.0); NEUTROPHIL # 3.4 10^3/ul (1.6-7.5); NEUTROPHILS % 66.5 % (39.0-77.0); PLATELET COUNT 73 10^3/UL (140-415); RED BLOOD COUNT 2.97 10^6/ul (4.20-5.40); WHITE BLOOD COUNT 5.1 10^3/ul (4.8-10.8)
[2016-12-07 07:55] LABS: POSITIVE DIFF @See below
[2016-12-07 08:13] LABS: ALBUMIN 3.5 g/dl (3.3-4.9); ALBUMIN/GLOBULIN RATIO 0.85; BILIRUBIN,INDIRECT 0.8 mg/dl (0-1.1); BILIRUBIN,TOTAL 0.8 mg/dl (0.2-1.3); CALCIUM 9.7 mg/dl (8.4-10.2); CREATININE 1.88 mg/dl (0.44-1.00); POTASSIUM 3.8 mmol/L (3.5-5.1); TOTAL PROTEIN 7.6 g/dl (6.1-8.1)
[2016-12-07] MEDS: MULTIVITAMINS THERAPEUTIC TAB PO SCH (08:59)
[2016-12-07] MEDS: FERROUS SULFATE (EC) 325 MG TAB PO SCH (08:59)
[2016-12-07] MEDS: DOCUSATE SODIUM 100 MG CAP PO SCH ×2 (09:00→21:40)
[2016-12-07] MEDS: ASPIRIN 81 MG TAB PO SCH (09:00)
--- NOTE | 2016-12-07 09:41 | CONS ---
Date/Time of Note Date/Time of Note DATE: 12/07/16 TIME: 09:37 Assessment/Plan Assessment/Plan Additional Assessment/Plan 1. Renal failure. This patient was previously on hemodialysis. She was last dialyzed on 12/03/2016. She is otherwise doing well. Her renal function has decreased over the last 2 days however she has been in negative fluid balance and is on Bumex. I will discontinue the Bumex. She has no edema and her chest x-ray is clear. Will monitor lab tests over the next several days to see if she improves renal function and does not need further dialysis. Minimal bump in creatinine; can watch for where levels. 2. History of staph sepsis. She was at [facility] and had a right groin abscess and then subsequent respiratory failure requiring a ventilator and then acute renal failure requiring dialysis. I suspect that she had acute tubular necrosis which has improved. Hopefully she will not need further dialysis. This remains to be seen. Will follow labs and her urine output. 3. Type 2 diabetes mellitus 4. Malnourished 5. Chest pain which seems to be due to left chest wall tenderness. 6. Constipation 7. Iron deficiency state 8. Elevated alk phosph with ultrasound suggesting cirrhosis without ascites Recommend: 1. f/up bmp 2. laxative per IM. Consultation Date/Type/Reason Admit Date/Time Dec 04, 2016 at 22:10 Initial Consult Date Type of Consultation: Nephrology 24 HR Interval Summary Free Text/Dictation She feels a litle better. No sob. No pain but weakness on trying to move and change position and daughter at bedside was told prolonged icu caused her weakness. She has not had a bowel movement. Creatinine noted and minimal rise and good urine output. Exam/Review of Systems Vital Signs Vitals Vital Signs Date Time Temp Pulse Resp B/P Pulse Ox O2 Delivery O2 Flow Rate FiO2 12/07/16 08:20 78 12/07/16 07:49 98.1 19 98/53 99 12/04/16 23:54 Room Air 12/04/16 19:40 2 Intake and Output 12/06/16 12/06/16 12/07/16 15:00 23:00 07:00 Intake Total 100 ml 720 ml 400 ml Output Total 600 ml 450 ml Balance 100 ml 120 ml -50 ml Exam Constitutional: alert Eyes: nl conjunctiva Respiratory: clear to auscultation Cardiovascular: regular rate and rhythm Gastrointestinal: soft Results Result Diagram: 12/07/16 0649 12/07/16 0649 Results 24 hrs Laboratory Tests Test 12/06/16 10:35 12/06/16 11:24 12/06/16 17:08 12/06/16 21:01 Urine Color YELLOW Urine Clarity CLOUDY A Urine pH 6.0 Urine Specific [place] 1.009 Urine Ketones NEGATIVE Urine Nitrite NEGATIVE Urine Bilirubin NEGATIVE Urine Urobilinogen NEGATIVE Urine Leukocyte Esterase 3+ H Urine Microscopic RBC 10 H Urine Microscopic WBC 107 H Urine Hemoglobin 2+ H Urine Random Creatinine 22.86 Urine Protein/Creatinine Ratio 1.70 Urine Glucose NEGATIVE Urine Total Protein 39.0 H Bedside Glucose 126 145 192 Test 12/07/16 05:48 12/07/16 06:49 12/07/16 07:41 Bedside Glucose 180 178 White Blood Count 5.1 # Red Blood Count 2.97 L Hemoglobin 9.3 L Hematocrit 27.8 L Mean Corpuscular Volume 93.6 Mean Corpuscular Hemoglobin 31.3 Mean Corpuscular Hemoglobin Concent 33.5 Red Cell Distribution Width 17.0 H Platelet Count 73 L Mean Platelet Volume 10.4 Neutrophils % 66.5 Lymphocytes % 24.2 Monocytes % 7.5 Eosinophils % 0.8 Basophils % 0.8 Nucleated Red Blood Cells % 0.0 Neutrophils # 3.4 Lymphocytes # 1.2 Monocytes # 0.4 Eosinophils # 0.0 Basophils # 0.0 Nucleated Red Blood Cells # 0.0 Sodium Level 130 L Potassium Level 3.8 Chloride Level 96 L Carbon Dioxide Level 23 Anion Gap 15 Blood Urea Nitrogen 60 H Creatinine 1.88 H Glucose Level 171 Calcium Level 9.7 Total Bilirubin 0.8 Direct Bilirubin 0.00 Indirect Bilirubin 0.8 Aspartate Amino Transf (AST/SGOT) 44 Alanine Aminotransferase (ALT/SGPT) 33 Alkaline Phosphatase 157 H Total Protein 7.6 Albumin 3.5 Globulin 4.10 H Albumin/Globulin Ratio 0.85 Medications Medications Current Medications Ondansetron HCl (Zofran Inj) 4 mg Q6H PRN IV NAUSEA AND/OR VOMITING; Start 02/11 at 03:00 Acetaminophen (Tylenol Tab) 650 mg Q6H PRN PO PAIN LEVEL 1-3 OR FEVER Last administered on 12/06/16t 16:05; Admin Dose 650 MG; Start 12/05/16 at 03:00 Morphine Sulfate (morphine) 2 mg Q4H PRN IV PAIN LEVEL 7-10; Start 12/05/16 at 03:00 Docusate Sodium (Colace) 100 mg Q12H PRN PO CONSTIPATION; Start 12/05/16 at 03: 00 Bisacodyl (Dulcolax) 5 mg DAILY PRN PO CONSTIPATION; Start 12/05/16 at 03:00 Aspirin (Aspirin) 81 mg DAILY PO Last administered on 12/07/16 09:00; Admin Dose 81 MG; Start 12/05/16 at 09:00 Docusate Sodium (Colace) 100 mg BID PO Last administered on 12/07/16 09:00; Admin Dose 100 MG; Start 12/05/16 at 09:00 Ferrous Sulfate (Ferrous Sulfate (Ec)) 325 mg DAILY PO Last administered on 08:59; Admin Dose 325 MG; Start 12/05/16 at 09:00 Multivitamins Therapeutic (Theragran) 1 tab DAILY PO Last administered on 08:59; Admin Dose 1 TAB; Start 12/05/16 at 09:00 Ondansetron HCl (Zofran Tab) 8 mg BID PRN PO NAUSEA AND/OR VOMITING; Start 02/11 at 03:00 Polyethylene Glycol (Miralax) 17 gm DAILY PRN PO NEEDED; Start 12/05/16 at 03:00 Senna (Senokot) 1 tab QHS PO Last administered on 12/06/16 21:03; Admin Dose 1 TAB; Start 12/05/16 at 21:00 Miscellaneous Information 1 ea NOTE XX ; Start 12/05/16 at 03:00 Glucose (Glutose) 15 gm Q15M PRN PO DECREASED GLUCOSE; Start 12/05/16 at 03:00 Glucose (Glutose) 22.5 gm Q15M PRN PO DECREASED GLUCOSE; Start 12/05/16 at 03: 00 Dextrose (D50w Syringe) 25 ml Q15M PRN IV DECREASED GLUCOSE; Start 12/05/16 at 03:00 Dextrose (D50w Syringe) 50 ml Q15M PRN IV DECREASED GLUCOSE; Start 12/05/16 at 03:00 Glucagon (Glucagen) 1 mg Q15M PRN IM DECREASED GLUCOSE; Start 12/05/16 at 03:00 Glucose (Glutose) 15 gm Q15M PRN BUCCAL DECREASED GLUCOSE; Start 12/05/16 at 03 :00 Miscellaneous Information (Pending [facility] Order For Wound Care) This patient caba... PRN PRN XX WOUND CARE; Start 12/05/16 at 03:30 Insulin Glargine (Lantus) 30 unit Q24H SC Last administered on 12/07/16 05:55 ; Admin Dose 30 UNIT; Start 12/05/16 at 06:00 Ranitidine HCl 150 mg 150 mg HS PO Last administered on 12/06/16 21:07; Admin Dose 150 MG; Start 12/05/16 at 21:00 Ferric Sodium Gluconate Complex/ Sodium Chloride (Ferrlecit/NS) 110 ml @ 100 mls/hr Q24H IVPB Last administered on 12/06/16 12:13; Admin Dose 100 MLS/HR; Start 12/06/16 at 12:00; Stop 12/08/16 at 13:05 TOMI BENTLEY MD Dec 07, 2016 09:41
[2016-12-07] MEDS ORDERED: POLYETHYLENE GLYCOL 17 GM PACKET PO SCH (10:00)
[2016-12-07] MEDS ORDERED: BISACODYL 10 MG SUPP PR ONE (10:00)
--- NOTE | 2016-12-07 11:07 | PN ---
Date/Time of Note Date/Time of Note DATE: 12/07/16 TIME: 11:05 Assessment/Plan VTE Prophylaxis VTE Prophylaxis Intervention: SCD's Lines/Catheters IV Catheter Type (from Nrsg): PERMA CATH Urinary Cath still in place: Yes Reason Cath still needed: other (indicate) (non ambulatory) Assessment/Plan Assessment/Plan 60 yo F with recent 4 month hospitalization at [facility] for sepsis 2/2 MSSA bacteremia from groin abscess c/b ARF 2/2 ATN and sepsis requiring HD on which she remains, NSTEMI (type 2), DKA, respiratory failure requiring trach, and critical illness myopathy sent to SNF 8.3 for HERMES. Pt transferred to [facility] 8.9 when she complained of chest pain. #chest pain: likely MSK in origin. however cannot use NSAID given tenuous renal status #ARF requiring intermittent HD -renal on cs -dc sparks #critical illness myopathy: PT/OT #DM2: continue insulin dispo: pt doesn't want to go back to SNF. PT/OT evals already ordered, and CM cs placed for discharge planning Subjective 24 Hr Interval Summary Free Text/Dictation Pt now stating she does not want to go back to the SNF, would rather go home. Family states they might be able to provider 24 hour supervision but are concerned about ability to transport pt to/from HD Exam/Review of Systems Vital Signs Vitals Vital Signs Date Time Temp Pulse Resp B/P Pulse Ox O2 Delivery O2 Flow Rate FiO2 12/07/16 08:20 78 12/07/16 07:49 98.1 19 98/53 99 12/04/16 23:54 Room Air 12/04/16 19:40 2 Intake and Output 12/06/16 12/06/16 12/07/16 15:00 23:00 07:00 Intake Total 100 ml 720 ml 400 ml Output Total 600 ml 450 ml Balance 100 ml 120 ml -50 ml Exam nad, frail, laying in bed no rashes abd soft no le edema resp non labored Results Result Diagram: 12/07/16 0649 12/07/16 0649 Results 24 hrs Laboratory Tests Test 12/06/16 11:24 12/06/16 17:08 12/06/16 21:01 12/07/16 05:48 Bedside Glucose 126 145 192 180 Test 12/07/16 06:49 12/07/16 07:41 White Blood Count 5.1 # Red Blood Count 2.97 L Hemoglobin 9.3 L Hematocrit 27.8 L Mean Corpuscular Volume 93.6 Mean Corpuscular Hemoglobin 31.3 Mean Corpuscular Hemoglobin Concent 33.5 Red Cell Distribution Width 17.0 H Platelet Count 73 L Mean Platelet Volume 10.4 Neutrophils % 66.5 Lymphocytes % 24.2 Monocytes % 7.5 Eosinophils % 0.8 Basophils % 0.8 Nucleated Red Blood Cells % 0.0 Neutrophils # 3.4 Lymphocytes # 1.2 Monocytes # 0.4 Eosinophils # 0.0 Basophils # 0.0 Nucleated Red Blood Cells # 0.0 Sodium Level 130 L Potassium Level 3.8 Chloride Level 96 L Carbon Dioxide Level 23 Anion Gap 15 Blood Urea Nitrogen 60 H Creatinine 1.88 H Glucose Level 171 Calcium Level 9.7 Total Bilirubin 0.8 Direct Bilirubin 0.00 Indirect Bilirubin 0.8 Aspartate Amino Transf (AST/SGOT) 44 Alanine Aminotransferase (ALT/SGPT) 33 Alkaline Phosphatase 157 H Total Protein 7.6 Albumin 3.5 Globulin 4.10 H Albumin/Globulin Ratio 0.85 Bedside Glucose 178 Medications Medications Current Medications Ondansetron HCl (Zofran Inj) 4 mg Q6H PRN IV NAUSEA AND/OR VOMITING; Start 02/11 at 03:00 Acetaminophen (Tylenol Tab) 650 mg Q6H PRN PO PAIN LEVEL 1-3 OR FEVER Last administered on 12/06/16 16:05; Admin Dose 650 MG; Start 12/05/16 at 03:00 Morphine Sulfate (morphine) 2 mg Q4H PRN IV PAIN LEVEL 7-10; Start 12/05/16 at 03:00 Docusate Sodium (Colace) 100 mg Q12H PRN PO CONSTIPATION; Start 12/05/16 at 03: 00 Bisacodyl (Dulcolax) 5 mg DAILY PRN PO CONSTIPATION; Start 12/05/16 at 03:00 Aspirin (Aspirin) 81 mg DAILY PO Last administered on 12/07/16 09:00; Admin Dose 81 MG; Start 12/05/16 at 09:00 Docusate Sodium (Colace) 100 mg BID PO Last administered on 12/07/16 09:00; Admin Dose 100 MG; Start 12/05/16 at 09:00 Ferrous Sulfate (Ferrous Sulfate (Ec)) 325 mg DAILY PO Last administered on 08:59; Admin Dose 325 MG; Start 12/05/16 at 09:00 Multivitamins Therapeutic (Theragran) 1 tab DAILY PO Last administered on 08:59; Admin Dose 1 TAB; Start 12/05/16 at 09:00 Ondansetron HCl (Zofran Tab) 8 mg BID PRN PO NAUSEA AND/OR VOMITING; Start 02/11 at 03:00 Polyethylene Glycol (Miralax) 17 gm DAILY PRN PO NEEDED; Start 12/05/16 at 03:00; Stop 12/08/16 at 09:00 Senna (Senokot) 1 tab QHS PO Last administered on 12/06/16 21:03; Admin Dose 1 TAB; Start 12/05/16 at 21:00 Miscellaneous Information 1 ea NOTE XX ; Start 12/05/16 at 03:00 Glucose (Glutose) 15 gm Q15M PRN PO DECREASED GLUCOSE; Start 12/05/16 at 03:00 Glucose (Glutose) 22.5 gm Q15M PRN PO DECREASED GLUCOSE; Start 12/05/16 at 03: 00 Dextrose (D50w Syringe) 25 ml Q15M PRN IV DECREASED GLUCOSE; Start 12/05/16 at 03:00 Dextrose (D50w Syringe) 50 ml Q15M PRN IV DECREASED GLUCOSE; Start 12/05/16 at 03:00 Glucagon (Glucagen) 1 mg Q15M PRN IM DECREASED GLUCOSE; Start 12/05/16 at 03:00 Glucose (Glutose) 15 gm Q15M PRN BUCCAL DECREASED GLUCOSE; Start 12/05/16 at 03 :00 [facility] This patient caba... PRN PRN XX WOUND CARE; Start 12/05/16 at 03:30 Insulin Glargine (Lantus) 30 unit Q24H SC Last administered on 12/07/16 05:55 ; Admin Dose 30 UNIT; Start 12/05/16 at 06:00 Ranitidine HCl 150 mg 150 mg HS PO Last administered on 12/06/16 21:07; Admin Dose 150 MG; Start 12/05/16 at 21:00 Ferric Sodium Gluconate Complex/ Sodium Chloride (Ferrlecit/NS) 110 ml @ 100 mls/hr Q24H IVPB Last administered on 12/06/16 12:13; Admin Dose 100 MLS/HR; Start 12/06/16 at 12:00; Stop 12/08/16 at 13:05 Polyethylene Glycol (Miralax) 17 gm ONCE PO Last administered on 12/07/16 10: 04; Admin Dose 17 GM; Start 12/07/16 at 10:00; Stop 12/07/16 at 16:00 BABS RODRIGUEZ MD Dec 07, 2016 11:07
[2016-12-07] MEDS: SOD FERRIC GLUC COMPLX 125 MG in SOD CHLORIDE 0.9% 100 ML IVPB SCH (12:13)
[2016-12-07] MEDS: INSULIN ASPART [NOVOLOG] 3 ML PEN SC SCH ×2 (17:46→22:13)
[2016-12-07] MEDS: SENNA TAB PO SCH (21:40)
[2016-12-07] MEDS: RANITIDINE 150 MG TAB PO SCH (21:40)
[2016-12-07] MEDS: morphine 2 MG INJ IV PRN (22:06)
[2016-12-08 01:25] VITALS: BP 109/65; RESP 18
[2016-12-08] MEDS ORDERED: ACCU-CHEK XX SCH (02:00)
[2016-12-08] MEDS: ACCU-CHEK XX SCH ×5 (02:35→21:09)
[2016-12-08] MEDS ORDERED: PENDING SANTYL ORDER FOR WOUND CARE XX PRN (04:00)
[2016-12-08 05:57] LABS: CALCIUM 9.5 mg/dl (8.4-10.2); CREATININE 1.62 mg/dl (0.44-1.00); POTASSIUM 3.7 mmol/L (3.5-5.1)
[2016-12-08] MEDS: INSULIN GLARGINE [LANtus] 3 ML PEN SC SCH (06:35)
[2016-12-08] MEDS: ASPIRIN 81 MG TAB PO SCH (08:05)
[2016-12-08] MEDS: FERROUS SULFATE (EC) 325 MG TAB PO SCH (08:05)
[2016-12-08] MEDS: MULTIVITAMINS THERAPEUTIC TAB PO SCH (08:05)
[2016-12-08] MEDS: DOCUSATE SODIUM 100 MG CAP PO SCH ×2 (08:05→20:37)
[2016-12-08] MEDS: INSULIN ASPART [NOVOLOG] 3 ML PEN SC SCH ×4 (08:19→20:46)
[2016-12-08 08:26] VITALS: BP 109/62; RESP 16
[2016-12-08] MEDS: PENDING SANTYL ORDER FOR WOUND CARE XX SCH (09:00)
--- NOTE | 2016-12-08 09:32 | CONS ---
Date/Time of Note Date/Time of Note DATE: 12/08/16 TIME: 09:28 Assessment/Plan Assessment/Plan Additional Assessment/Plan recovering renal function anemia sacral decub icu myopathy recheck bmp in am may be able to remove dial cath Consultation Date/Type/Reason Admit Date/Time Dec 04, 2016 at 22:10 Type of Consultation: Nephrology 24 HR Interval Summary Free Text/Dictation daughter stated mom eating better and feels good. She is lying on side with sacral decub evident. Exam/Review of Systems Vital Signs Vitals Vital Signs Date Time Temp Pulse Resp B/P Pulse Ox O2 Delivery O2 Flow Rate FiO2 12/08/16 08:26 97.8 73 16 109/62 99 12/04/16 23:54 Room Air 12/04/16 19:40 2 Intake and Output 12/07/16 12/07/16 12/08/16 15:00 23:00 07:00 Intake Total 600 ml 240 ml Output Total 850 ml 840 ml Balance -250 ml -600 ml Exam Constitutional: alert Cardiovascular: regular rate and rhythm Gastrointestinal: soft Genitourinary - Female: other (sparks in place draining yellow urine) Neurological: [employer] II-XII intact Skin: other (sacral decub stage 3 noted) Results Result Diagram: 12/07/16 0649 12/08/16 0458 Results 24 hrs Laboratory Tests Test 12/07/16 12:09 12/07/16 17:17 12/07/16 21:42 12/08/16 02:27 Bedside Glucose 204 240 H 233 H 174 Test 12/08/16 04:58 12/08/16 06:32 12/08/16 08:05 Sodium Level 130 L Potassium Level 3.7 Chloride Level 98 Carbon Dioxide Level 21 Anion Gap 15 Blood Urea Nitrogen 64 H Creatinine 1.62 H Glucose Level 180 Calcium Level 9.5 Bedside Glucose 187 173 Medications Medications Current Medications Ondansetron HCl (Zofran Inj) 4 mg Q6H PRN IV NAUSEA AND/OR VOMITING; Start 02/11 at 03:00 Acetaminophen (Tylenol Tab) 650 mg Q6H PRN PO PAIN LEVEL 1-3 OR FEVER Last administered on 12/06/16t 16:05; Admin Dose 650 MG; Start 12/05/16 at 03:00 Morphine Sulfate (morphine) 2 mg Q4H PRN IV PAIN LEVEL 7-10 Last administered on 12/07/16 22:06; Admin Dose 2 MG; Start 12/05/16 at 03:00 Docusate Sodium (Colace) 100 mg Q12H PRN PO CONSTIPATION; Start 12/05/16 at 03: 00 Bisacodyl (Dulcolax) 5 mg DAILY PRN PO CONSTIPATION; Start 12/05/16 at 03:00 Aspirin (Aspirin) 81 mg DAILY PO Last administered on 12/08/16 08:05; Admin Dose 81 MG; Start 12/05/16 at 09:00 Docusate Sodium (Colace) 100 mg BID PO Last administered on 12/08/16 08:05; Admin Dose 100 MG; Start 12/05/16 at 09:00 Ferrous Sulfate (Ferrous Sulfate (Ec)) 325 mg DAILY PO Last administered on 08:05; Admin Dose 325 MG; Start 12/05/16 at 09:00 Multivitamins Therapeutic (Theragran) 1 tab DAILY PO Last administered on 08:05; Admin Dose 1 TAB; Start 12/05/16 at 09:00 Ondansetron HCl (Zofran Tab) 8 mg BID PRN PO NAUSEA AND/OR VOMITING; Start 02/11 at 03:00 Senna (Senokot) 1 tab QHS PO Last administered on 12/07/16 21:40; Admin Dose 1 TAB; Start 12/05/16 at 21:00 Miscellaneous Information 1 ea NOTE XX ; Start 12/05/16 at 03:00 Glucose (Glutose) 15 gm Q15M PRN PO DECREASED GLUCOSE; Start 12/05/16 at 03:00 Glucose (Glutose) 22.5 gm Q15M PRN PO DECREASED GLUCOSE; Start 12/05/16 at 03: 00 Dextrose (D50w Syringe) 25 ml Q15M PRN IV DECREASED GLUCOSE; Start 12/05/16 at 03:00 Dextrose (D50w Syringe) 50 ml Q15M PRN IV DECREASED GLUCOSE; Start 12/05/16 at 03:00 Glucagon (Glucagen) 1 mg Q15M PRN IM DECREASED GLUCOSE; Start 12/05/16 at 03:00 Glucose (Glutose) 15 gm Q15M PRN BUCCAL DECREASED GLUCOSE; Start 12/05/16 at 03 :00 Miscellaneous Information (Pending [facility] Order For Wound Care) This patient caba... PRN PRN XX WOUND CARE; Start 12/05/16 at 03:30 Insulin Glargine (Lantus) 30 unit Q24H SC Last administered on 12/08/16 06:35 ; Admin Dose 30 UNIT; Start 12/05/16 at 06:00 Ranitidine HCl 150 mg 150 mg HS PO Last administered on 12/07/16 21:40; Admin Dose 150 MG; Start 12/05/16 at 21:00 Ferric Sodium Gluconate Complex/ Sodium Chloride (Ferrlecit/NS) 110 ml @ 100 mls/hr Q24H IVPB Last administered on 12/07/16 12:13; Admin Dose 100 MLS/HR; Start 12/06/16 at 12:00; Stop 12/08/16 at 13:05 Diagnostic Test (Pha) (Accu-Chek) 1 ea 02 XX Last administered on 12/08/16 02: 35; Admin Dose 1 EA; Start 12/08/16 at 02:00 Miscellaneous Information (Pending [facility] Order For Wound Care) This patient caba... DAILY XX ; Start 12/08/16 at 09:00 Miscellaneous Information (Pending [facility] Order For Wound Care) This patient caba... PRN PRN XX WOUND CARE; Start 12/08/16 at 04:00 Collagenase (Santyl) 1 applic DAILY TOP ; Start 12/08/16 at 09:00 TOMI BENTLEY MD Dec 08, 2016 09:32
[2016-12-08] MEDS: COLLAGENASE 30 GM TUBE TOP SCH (11:59)
[2016-12-08] MEDS: SOD FERRIC GLUC COMPLX 125 MG in SOD CHLORIDE 0.9% 100 ML IVPB SCH (11:59)
--- NOTE | 2016-12-08 14:30 | PN ---
Date/Time of Note Date/Time of Note DATE: 12/08/16 TIME: 14:22 Assessment/Plan VTE Prophylaxis VTE Prophylaxis Intervention: SCD's Lines/Catheters IV Catheter Type (from Nrsg): Permacath Urinary Cath still in place: Yes Reason Cath still needed: other (indicate) (will dc) Assessment/Plan Assessment/Plan 60 yo F with recent 4 month hospitalization at [facility] for sepsis 2/2 MSSA bacteremia from groin abscess c/b ARF 2/2 ATN and sepsis requiring HD on which she remains, NSTEMI (type 2), DKA, respiratory failure requiring trach, and critical illness myopathy sent to SNF 8.3 for HERMES. Pt transferred to [facility] 8.9 when she complained of chest pain. #chest pain: likely MSK in origin. however cannot use NSAID given tenuous renal status #ARF at OSH requiring intermittent HD -renal on cs -dc sparks-->ordered yesterday #hyponatremia: suspect insufficient PO intake. -RD eval ongoing #critical illness myopathy: PT/OT #DM2: continue insulin dispo: pt doesn't want to go back to SNF. PT/OT evals already ordered, and CM cs placed for discharge planning Subjective 24 Hr Interval Summary Free Text/Dictation Pt reports chest discomfort a little better Exam/Review of Systems Vital Signs Vitals Vital Signs Date Time Temp Pulse Resp B/P Pulse Ox O2 Delivery O2 Flow Rate FiO2 12/08/16 08:26 97.8 73 16 109/62 99 12/04/16 23:54 Room Air 12/04/16 19:40 2 Intake and Output 12/07/16 12/07/16 12/08/16 15:00 23:00 07:00 Intake Total 600 ml 240 ml Output Total 850 ml 840 ml Balance -250 ml -600 ml Exam sitting up in bed, daughter is feeding her no mrg lungs clear abd soft no rashes Na noted, slightly low Results Result Diagram: 12/07/16 0649 12/08/16 0458 Results 24 hrs Laboratory Tests Test 12/07/16 17:17 12/07/16 21:42 12/08/16 02:27 12/08/16 04:58 Bedside Glucose 240 H 233 H 174 Sodium Level 130 L Potassium Level 3.7 Chloride Level 98 Carbon Dioxide Level 21 Anion Gap 15 Blood Urea Nitrogen 64 H Creatinine 1.62 H Glucose Level 180 Calcium Level 9.5 Test 12/08/16 06:32 12/08/16 08:05 12/08/16 12:00 Bedside Glucose 187 173 147 Medications Medications Current Medications Ondansetron HCl (Zofran Inj) 4 mg Q6H PRN IV NAUSEA AND/OR VOMITING; Start 02/11 at 03:00 Acetaminophen (Tylenol Tab) 650 mg Q6H PRN PO PAIN LEVEL 1-3 OR FEVER Last administered on 12/06/16 16:05; Admin Dose 650 MG; Start 12/05/16 at 03:00 Morphine Sulfate (morphine) 2 mg Q4H PRN IV PAIN LEVEL 7-10 Last administered on 12/07/16 22:06; Admin Dose 2 MG; Start 12/05/16 at 03:00 Docusate Sodium (Colace) 100 mg Q12H PRN PO CONSTIPATION; Start 12/05/16 at 03: 00 Bisacodyl (Dulcolax) 5 mg DAILY PRN PO CONSTIPATION; Start 12/05/16 at 03:00 Aspirin (Aspirin) 81 mg DAILY PO Last administered on 12/08/16 08:05; Admin Dose 81 MG; Start 12/05/16 at 09:00 Docusate Sodium (Colace) 100 mg BID PO Last administered on 12/08/16 08:05; Admin Dose 100 MG; Start 12/05/16 at 09:00 Ferrous Sulfate (Ferrous Sulfate (Ec)) 325 mg DAILY PO Last administered on 08:05; Admin Dose 325 MG; Start 12/05/16 at 09:00 Multivitamins Therapeutic (Theragran) 1 tab DAILY PO Last administered on 08:05; Admin Dose 1 TAB; Start 12/05/16 at 09:00 Ondansetron HCl (Zofran Tab) 8 mg BID PRN PO NAUSEA AND/OR VOMITING; Start 02/11 at 03:00 Senna (Senokot) 1 tab QHS PO Last administered on 12/07/16 21:40; Admin Dose 1 TAB; Start 12/05/16 at 21:00 Miscellaneous Information 1 ea NOTE XX ; Start 12/05/16 at 03:00 Glucose (Glutose) 15 gm Q15M PRN PO DECREASED GLUCOSE; Start 12/05/16 at 03:00 Glucose (Glutose) 22.5 gm Q15M PRN PO DECREASED GLUCOSE; Start 12/05/16 at 03: 00 Dextrose (D50w Syringe) 25 ml Q15M PRN IV DECREASED GLUCOSE; Start 12/05/16 at 03:00 Dextrose (D50w Syringe) 50 ml Q15M PRN IV DECREASED GLUCOSE; Start 12/05/16 at 03:00 Glucagon (Glucagen) 1 mg Q15M PRN IM DECREASED GLUCOSE; Start 12/05/16 at 03:00 Glucose (Glutose) 15 gm Q15M PRN BUCCAL DECREASED GLUCOSE; Start 12/05/16 at 03 :00 Miscellaneous Information (Pending Santyl Order For Wound Care) This patient caba... PRN PRN XX WOUND CARE; Start 12/05/16 at 03:30 Insulin Glargine (Lantus) 30 unit Q24H SC Last administered on 12/08/16 06:35 ; Admin Dose 30 UNIT; Start 12/05/16 at 06:00 Ranitidine HCl (Zantac) 150 mg HS PO Last administered on 12/07/16 21:40; Admin Dose 150 MG; Start 12/05/16 at 21:00 Diagnostic Test (Pha) (Accu-Chek) 1 ea 02 XX Last administered on 12/08/16 02: 35; Admin Dose 1 EA; Start 12/08/16 at 02:00 Miscellaneous Information (Pending Santyl Order For Wound Care) This patient caba... DAILY XX ; Start 12/08/16 at 09:00 Miscellaneous Information (Pending Santyl Order For Wound Care) This patient caba... PRN PRN XX WOUND CARE; Start 12/08/16 at 04:00 Collagenase (Santyl) 1 applic DAILY TOP Last administered on 12/08/16 11:59; Admin Dose 1 APPLIC; Start 12/08/16 at 09:00 BABS RODRIGUEZ MD Dec 08, 2016 14:30
[2016-12-08 15:08] VITALS: BP 120/72; RESP 18
[2016-12-08 20:19] VITALS: BP 126/60; RESP 16
[2016-12-08] MEDS: SENNA TAB PO SCH (20:37)
[2016-12-08] MEDS: RANITIDINE 150 MG TAB PO SCH (20:37)
[2016-12-08] MEDS: morphine 2 MG INJ IV PRN (20:54)
[2016-12-09 02:00] VITALS: BP 99/56; RESP 18
[2016-12-09] MEDS: ACCU-CHEK XX SCH ×5 (02:00→21:15)
[2016-12-09] MEDS: INSULIN GLARGINE [LANtus] 3 ML PEN SC SCH (06:33)
[2016-12-09 07:10] LABS: CALCIUM 10.1 mg/dl (8.4-10.2); CREATININE 1.41 mg/dl (0.44-1.00); POTASSIUM 3.6 mmol/L (3.5-5.1)
[2016-12-09 07:24] VITALS: BP 105/59; RESP 18
--- NOTE | 2016-12-09 07:43 | CONS ---
Date/Time of Note Date/Time of Note DATE: 12/09/16 TIME: 07:36 Assessment/Plan Assessment/Plan Chief Complaint/Hosp Course 1. Renal failure. This patient was previously on hemodialysis. She was last dialyzed on 12/03/2016. She is otherwise doing well. Her renal function has improved over the last 2 days. She has no edema and her chest x-ray is clear. She does not need dialysis at this time. I would consider a vascular surgery consultation to remove her right internal jugular permacath for hemodialysis. 2. History of staph sepsis. She was at [facility] and had a right groin abscess and then subsequent respiratory failure requiring a ventilator and then acute renal failure requiring dialysis. I suspect that she had acute tubular necrosis which has improved. Hopefully she will not need further dialysis. This remains to be seen. Will follow labs and her urine output. 3. Type 2 diabetes mellitus 4. Malnourished 5. Chest pain which seems to be due to left chest wall tenderness. 6. Unstageable sacral decubitus ulcer. Problems: Consultation Date/Type/Reason Admit Date/Time Dec 04, 2016 at 22:10 Type of Consultation: Nephrology 24 HR Interval Summary Free Text/Dictation She is awake and responsive. She says she feels well. She does complain of some pain over a sacral decubitus ulcer. Exam/Review of Systems Vital Signs Vitals Vital Signs Date Time Temp Pulse Resp B/P Pulse Ox O2 Delivery O2 Flow Rate FiO2 12/09/16 07:24 98.0 77 18 105/59 99 Intake and Output 12/08/16 12/08/16 12/09/16 15:00 23:00 07:00 Intake Total 1430 ml 200 ml Output Total 1000 ml 2 ml Balance 430 ml 198 ml Exam Constitutional: alert, frail, oriented Respiratory: clear to auscultation, normal air movement Cardiovascular: regular rate and rhythm Gastrointestinal: soft Musculoskeletal: nl extremities to inspection Results Result Diagram: 12/07/16 0649 12/09/16 0524 Results 24 hrs Laboratory Tests Test 12/08/16 08:05 12/08/16 12:00 12/08/16 17:17 12/08/16 20:40 Bedside Glucose 173 147 129 186 Test 12/09/16 03:05 12/09/16 05:24 12/09/16 06:26 Bedside Glucose 160 155 Sodium Level 134 L Potassium Level 3.6 Chloride Level 101 Carbon Dioxide Level 22 Anion Gap 15 Blood Urea Nitrogen 62 H Creatinine 1.41 H Glucose Level 143 Calcium Level 10.1 Medications Medications Current Medications Ondansetron HCl (Zofran Inj) 4 mg Q6H PRN IV NAUSEA AND/OR VOMITING; Start 02/11 at 03:00 Acetaminophen (Tylenol Tab) 650 mg Q6H PRN PO PAIN LEVEL 1-3 OR FEVER Last administered on 12/06/16 16:05; Admin Dose 650 MG; Start 12/05/16 at 03:00 Morphine Sulfate (morphine) 2 mg Q4H PRN IV PAIN LEVEL 7-10 Last administered on 12/08/16 20:54; Admin Dose 2 MG; Start 12/05/16 at 03:00 Docusate Sodium (Colace) 100 mg Q12H PRN PO CONSTIPATION; Start 12/05/16 at 03: 00 Bisacodyl (Dulcolax) 5 mg DAILY PRN PO CONSTIPATION; Start 12/05/16 at 03:00 Aspirin (Aspirin) 81 mg DAILY PO Last administered on 12/08/16 08:05; Admin Dose 81 MG; Start 12/05/16 at 09:00 Docusate Sodium (Colace) 100 mg BID PO Last administered on 12/08/16 20:37; Admin Dose 100 MG; Start 12/05/16 at 09:00 Ferrous Sulfate (Ferrous Sulfate (Ec)) 325 mg DAILY PO Last administered on 08:05; Admin Dose 325 MG; Start 12/05/16 at 09:00 Multivitamins Therapeutic (Theragran) 1 tab DAILY PO Last administered on 08:05; Admin Dose 1 TAB; Start 12/05/16 at 09:00 Ondansetron HCl (Zofran Tab) 8 mg BID PRN PO NAUSEA AND/OR VOMITING; Start 02/11 at 03:00 Senna (Senokot) 1 tab QHS PO Last administered on 12/08/16 20:37; Admin Dose 1 TAB; Start 12/05/16 at 21:00 Miscellaneous Information 1 ea NOTE XX ; Start 12/05/16 at 03:00 Glucose (Glutose) 15 gm Q15M PRN PO DECREASED GLUCOSE; Start 12/05/16 at 03:00 Glucose (Glutose) 22.5 gm Q15M PRN PO DECREASED GLUCOSE; Start 12/05/16 at 03: 00 Dextrose (D50w Syringe) 25 ml Q15M PRN IV DECREASED GLUCOSE; Start 12/05/16 at 03:00 Dextrose (D50w Syringe) 50 ml Q15M PRN IV DECREASED GLUCOSE; Start 12/05/16 at 03:00 Glucagon (Glucagen) 1 mg Q15M PRN IM DECREASED GLUCOSE; Start 12/05/16 at 03:00 Glucose (Glutose) 15 gm Q15M PRN BUCCAL DECREASED GLUCOSE; Start 12/05/16 at 03 :00 Miscellaneous Information (Pending Santyl Order For Wound Care) This patient caba... PRN PRN XX WOUND CARE; Start 12/05/16 at 03:30 Insulin Glargine (Lantus) 30 unit Q24H SC Last administered on 12/09/16 06:33 ; Admin Dose 30 UNIT; Start 12/05/16 at 06:00 Ranitidine HCl (Zantac) 150 mg HS PO Last administered on 12/08/16 20:37; Admin Dose 150 MG; Start 12/05/16 at 21:00 Diagnostic Test (Pha) (Accu-Chek) 1 ea 02 XX Last administered on 12/09/16 02: 00; Admin Dose 1 EA; Start 12/08/16 at 02:00 Miscellaneous Information (Pending Santyl Order For Wound Care) This patient caba... DAILY XX ; Start 12/08/16 at 09:00 Miscellaneous Information (Pending Santyl Order For Wound Care) This patient caba... PRN PRN XX WOUND CARE; Start 12/08/16 at 04:00 Collagenase (Santyl) 1 applic DAILY TOP Last administered on 12/08/16 11:59; Admin Dose 1 APPLIC; Start 12/08/16 at 09:00 MELVINA FARAH MD Dec 09, 2016 07:43
[2016-12-09] MEDS ORDERED: POTASSIUM CHLORIDE (SR) 20 MEQ TAB PO STA (07:47)
[2016-12-09] MEDS: MULTIVITAMINS THERAPEUTIC TAB PO SCH (08:03)
[2016-12-09] MEDS: DOCUSATE SODIUM 100 MG CAP PO SCH ×2 (08:03→21:05)
[2016-12-09] MEDS: ASPIRIN 81 MG TAB PO SCH (08:03)
[2016-12-09] MEDS: FERROUS SULFATE (EC) 325 MG TAB PO SCH (08:03)
[2016-12-09] MEDS: COLLAGENASE 30 GM TUBE TOP SCH (08:03)
[2016-12-09] MEDS: PENDING SANTYL ORDER FOR WOUND CARE XX SCH (08:04)
[2016-12-09] MEDS: INSULIN ASPART [NOVOLOG] 3 ML PEN SC SCH ×4 (08:09→21:00)
[2016-12-09 14:03] VITALS: BP 105/62; RESP 16
[2016-12-09] MEDS ORDERED: AMIKACIN IV PER PHARMACY XX SCH (16:00)
--- NOTE | 2016-12-09 16:40 | PN ---
Date/Time of Note Date/Time of Note DATE: 12/09/16 TIME: 16:38 Assessment/Plan VTE Prophylaxis VTE Prophylaxis Intervention: SCD's Lines/Catheters IV Catheter Type (from Nrsg): Permacath Urinary Cath still in place: No Assessment/Plan Chief Complaint/Hosp Course 60 yo F with recent 4 month hospitalization at [facility] for sepsis 2/2 MSSA bacteremia from groin abscess c/b ARF 2/2 ATN and sepsis requiring HD on which she remains, NSTEMI (type 2), DKA, respiratory failure requiring trach, and critical illness myopathy sent to SNF 8.3 for HERMES. Pt transferred to [facility] 8.9 when she complained of chest pain. #chest pain: likely MSK in origin. however cannot use NSAID given tenuous renal status #UTI: asymptomatic at this time, however unsure if asymptomatic at time of collection, ESBL, consulted ID. #ARF at OSH requiring intermittent HD -renal on cs -[facility] dc'd -no need for HD per renal, permacath removed per vascular today. #hyponatremia: suspect insufficient PO intake. -RD eval ongoing #critical illness myopathy: PT/OT #DM2: continue insulin dispo:pending ID recs then dispo to likely SNF vs family care. Problems: Exam/Review of Systems Vital Signs Vitals Vital Signs Date Time Temp Pulse Resp B/P Pulse Ox O2 Delivery O2 Flow Rate FiO2 12/09/16 14:03 98.1 74 16 105/62 100 Intake and Output 12/08/16 12/08/16 12/09/16 15:00 23:00 07:00 Intake Total 1430 ml 200 ml Output Total 1000 ml 2 ml Balance 430 ml 198 ml Results Result Diagram: 12/07/16 0649 12/09/16 0524 Results 24 hrs Laboratory Tests Test 12/08/16 17:17 12/08/16 20:40 12/09/16 03:05 12/09/16 05:24 Bedside Glucose 129 186 160 Sodium Level 134 L Potassium Level 3.6 Chloride Level 101 Carbon Dioxide Level 22 Anion Gap 15 Blood Urea Nitrogen 62 H Creatinine 1.41 H Glucose Level 143 Calcium Level 10.1 Test 12/09/16 06:26 12/09/16 08:03 12/09/16 12:02 Bedside Glucose 155 166 137 Medications Medications Current Medications Ondansetron HCl (Zofran Inj) 4 mg Q6H PRN IV NAUSEA AND/OR VOMITING; Start 02/11 at 03:00 Acetaminophen (Tylenol Tab) 650 mg Q6H PRN PO PAIN LEVEL 1-3 OR FEVER Last administered on 12/06/16 16:05; Admin Dose 650 MG; Start 12/05/16 at 03:00 Morphine Sulfate (morphine) 2 mg Q4H PRN IV PAIN LEVEL 7-10 Last administered on 12/08/16 20:54; Admin Dose 2 MG; Start 12/05/16 at 03:00 Docusate Sodium (Colace) 100 mg Q12H PRN PO CONSTIPATION; Start 12/05/16 at 03: 00 Bisacodyl (Dulcolax) 5 mg DAILY PRN PO CONSTIPATION; Start 12/05/16 at 03:00 Aspirin (Aspirin) 81 mg DAILY PO Last administered on 12/09/16 08:03; Admin Dose 81 MG; Start 12/05/16 at 09:00 Docusate Sodium (Colace) 100 mg BID PO Last administered on 12/09/16 08:03; Admin Dose 100 MG; Start 12/05/16 at 09:00 Ferrous Sulfate (Ferrous Sulfate (Ec)) 325 mg DAILY PO Last administered on 08:03; Admin Dose 325 MG; Start 12/05/16 at 09:00 Multivitamins Therapeutic (Theragran) 1 tab DAILY PO Last administered on 08:03; Admin Dose 1 TAB; Start 12/05/16 at 09:00 Ondansetron HCl (Zofran Tab) 8 mg BID PRN PO NAUSEA AND/OR VOMITING; Start 02/11 at 03:00 Senna (Senokot) 1 tab QHS PO Last administered on 12/08/16 20:37; Admin Dose 1 TAB; Start 12/05/16 at 21:00 Miscellaneous Information 1 ea NOTE XX ; Start 12/05/16 at 03:00 Glucose (Glutose) 15 gm Q15M PRN PO DECREASED GLUCOSE; Start 12/05/16 at 03:00 Glucose (Glutose) 22.5 gm Q15M PRN PO DECREASED GLUCOSE; Start 12/05/16 at 03: 00 Dextrose (D50w Syringe) 25 ml Q15M PRN IV DECREASED GLUCOSE; Start 12/05/16 at 03:00 Dextrose (D50w Syringe) 50 ml Q15M PRN IV DECREASED GLUCOSE; Start 12/05/16 at 03:00 Glucagon (Glucagen) 1 mg Q15M PRN IM DECREASED GLUCOSE; Start 12/05/16 at 03:00 Glucose (Glutose) 15 gm Q15M PRN BUCCAL DECREASED GLUCOSE; Start 12/05/16 at 03 :00 Miscellaneous Information (Pending Santyl Order For Wound Care) This patient caba... PRN PRN XX WOUND CARE; Start 12/05/16 at 03:30 Insulin Glargine (Lantus) 30 unit Q24H SC Last administered on 12/09/16 06:33 ; Admin Dose 30 UNIT; Start 12/05/16 at 06:00 Ranitidine HCl (Zantac) 150 mg HS PO Last administered on 12/08/16 20:37; Admin Dose 150 MG; Start 12/05/16 at 21:00 Diagnostic Test (Pha) (Accu-Chek) 1 ea 02 XX Last administered on 12/09/16 02: 00; Admin Dose 1 EA; Start 12/08/16 at 02:00 Miscellaneous Information (Pending Santyl Order For Wound Care) This patient caba... DAILY XX ; Start 12/08/16 at 09:00 Miscellaneous Information (Pending Santyl Order For Wound Care) This patient caba... PRN PRN XX WOUND CARE; Start 12/08/16 at 04:00 Collagenase (Santyl) 1 applic DAILY TOP Last administered on 12/09/16 08:03; Admin Dose 1 APPLIC; Start 12/08/16 at 09:00 Amikacin Sulfate AMIKACIN PER PHARMACY NOTE XX ; Start 12/09/16 at 16:00 Amikacin Sulfate/ Sodium Chloride (Amikacin/NS) 101.2 ml @ 102 mls/hr ONCE IVPB ; Start 12/09/16 at 18:00; Stop 12/09/16 at 23:33 POOL PALACIOS Dec 09, 2016 16:40
--- NOTE | 2016-12-09 16:51 | CONS ---
Date/Time of Note Date/Time of Note DATE: 12/09/16 TIME: 16:50 Consultation Date/Type/Reason Admit Date/Time Dec 04, 2016 at 22:10 Date of Consultation: Dec 09, 2016 Type of Consultation: ID Reason for Consultation Antibiotic management Constitutional: improved, no complaints Past Surgical History Past Surgical Hx: no surgical history Social History Alcohol Use: none Smoking Status: Never smoker Drug Use: none Exam/Review of Systems Vital Signs Vitals Vital Signs Date Time Temp Pulse Resp B/P Pulse Ox O2 Delivery O2 Flow Rate FiO2 12/09/16 14:03 98.1 74 16 105/62 100 Intake and Output 12/08/16 12/08/16 12/09/16 15:00 23:00 07:00 Intake Total 1430 ml 200 ml Output Total 1000 ml 2 ml Balance 430 ml 198 ml Results Result Diagram: 12/07/16 0649 12/09/16 0524 Results 24 hrs Laboratory Tests Test 12/08/16 17:17 12/08/16 20:40 12/09/16 03:05 12/09/16 05:24 Bedside Glucose 129 186 160 Sodium Level 134 L Potassium Level 3.6 Chloride Level 101 Carbon Dioxide Level 22 Anion Gap 15 Blood Urea Nitrogen 62 H Creatinine 1.41 H Glucose Level 143 Calcium Level 10.1 Test 12/09/16 06:26 12/09/16 08:03 12/09/16 12:02 Bedside Glucose 155 166 137 Medications Medications Current Medications Ondansetron HCl (Zofran Inj) 4 mg Q6H PRN IV NAUSEA AND/OR VOMITING; Start 02/11 at 03:00 Acetaminophen (Tylenol Tab) 650 mg Q6H PRN PO PAIN LEVEL 1-3 OR FEVER Last administered on 12/06/16 16:05; Admin Dose 650 MG; Start 12/05/16 at 03:00 Morphine Sulfate (morphine) 2 mg Q4H PRN IV PAIN LEVEL 7-10 Last administered on 12/08/16 20:54; Admin Dose 2 MG; Start 12/05/16 at 03:00 Docusate Sodium (Colace) 100 mg Q12H PRN PO CONSTIPATION; Start 12/05/16 at 03: 00 Bisacodyl (Dulcolax) 5 mg DAILY PRN PO CONSTIPATION; Start 12/05/16 at 03:00 Aspirin (Aspirin) 81 mg DAILY PO Last administered on 12/09/16 08:03; Admin Dose 81 MG; Start 12/05/16 at 09:00 Docusate Sodium (Colace) 100 mg BID PO Last administered on 12/09/16 08:03; Admin Dose 100 MG; Start 12/05/16 at 09:00 Ferrous Sulfate (Ferrous Sulfate (Ec)) 325 mg DAILY PO Last administered on 08:03; Admin Dose 325 MG; Start 12/05/16 at 09:00 Multivitamins Therapeutic (Theragran) 1 tab DAILY PO Last administered on 08:03; Admin Dose 1 TAB; Start 12/05/16 at 09:00 Ondansetron HCl (Zofran Tab) 8 mg BID PRN PO NAUSEA AND/OR VOMITING; Start 02/11 at 03:00 Senna (Senokot) 1 tab QHS PO Last administered on 12/08/16 20:37; Admin Dose 1 TAB; Start 12/05/16 at 21:00 Miscellaneous Information 1 ea NOTE XX ; Start 12/05/16 at 03:00 Glucose (Glutose) 15 gm Q15M PRN PO DECREASED GLUCOSE; Start 12/05/16 at 03:00 Glucose (Glutose) 22.5 gm Q15M PRN PO DECREASED GLUCOSE; Start 12/05/16 at 03: 00 Dextrose (D50w Syringe) 25 ml Q15M PRN IV DECREASED GLUCOSE; Start 12/05/16 at 03:00 Dextrose (D50w Syringe) 50 ml Q15M PRN IV DECREASED GLUCOSE; Start 12/05/16 at 03:00 Glucagon (Glucagen) 1 mg Q15M PRN IM DECREASED GLUCOSE; Start 12/05/16 at 03:00 Glucose (Glutose) 15 gm Q15M PRN BUCCAL DECREASED GLUCOSE; Start 12/05/16 at 03 :00 Miscellaneous Information (Pending [facility] Order For Wound Care) This patient caba... PRN PRN XX WOUND CARE; Start 12/05/16 at 03:30 Insulin Glargine (Lantus) 30 unit Q24H SC Last administered on 12/09/16 06:33 ; Admin Dose 30 UNIT; Start 12/05/16 at 06:00 Ranitidine HCl (Zantac) 150 mg HS PO Last administered on 12/08/16 20:37; Admin Dose 150 MG; Start 12/05/16 at 21:00 Diagnostic Test (Pha) (Accu-Chek) 1 ea 02 XX Last administered on 12/09/16 02: 00; Admin Dose 1 EA; Start 12/08/16 at 02:00 Miscellaneous Information (Pending Santyl Order For Wound Care) This patient caba... DAILY XX ; Start 12/08/16 at 09:00 Miscellaneous Information (Pending Santyl Order For Wound Care) This patient caba... PRN PRN XX WOUND CARE; Start 12/08/16 at 04:00 Collagenase (Santyl) 1 applic DAILY TOP Last administered on 12/09/16 08:03; Admin Dose 1 APPLIC; Start 12/08/16 at 09:00 Amikacin Sulfate AMIKACIN PER PHARMACY NOTE XX ; Start 12/09/16 at 16:00 Amikacin Sulfate 300 mg/Sodium Chloride 101.2 ml @ 102 mls/hr ONCE IVPB ; Start 12/09/16 at 18:00; Stop 12/09/16 at 23:33 Sodium Chloride (NS) 1,000 ml @ 50 mls/hr Q20H IV ; Start 12/09/16 at 17:00 JORY VIVAR MD Dec 09, 2016 16:51
[2016-12-09 17:00] VITALS: Ht 149.9 cm; Wt 49.0 kg
[2016-12-09] MEDS: SOD CHLORIDE 0.9% 1,000 ML IV SCH (17:11)
[2016-12-09] MEDS ORDERED: AMIKACIN 300 MG in SOD CHLORIDE 0.9% 100 ML IVPB SCH (18:00)
--- NOTE | 2016-12-09 18:28 | OPR ---
Date/Time of Note Date/Time of Note DATE: 12/09/16 TIME: 18:26 Operative Report Free Text/Dictation DATE OF OPERATION: 12/09/16 SURGEON: Paco Benz MD PREOPERATIVE DIAGNOSIS: Renal failure, SEPSIS POSTOPERATIVE DIAGNOSIS: ANESTHESIA: Local BLOOD LOSS: minimal COMPLICATIONS: None. HEPARIN: None CONTRAST: None CLOSURE: Manual compression & 3-0 Nylon suture INDICATIONS: This is a 60 year-old female with renal failure and multiple medical conditions. Currently has a permanent catheter for dialysis and resolution of her renal failure. Patient and family have been informed of the alternatives, risks, and benefits. Risks including but not limited to bleeding, thrombosis, embolization, myocardial infarction, , device malfunction, infection, pneumothorax, and nephrotoxicity and patient has agreed to proceed. PROCEDURE: 1. Removal of right chest wall catheter DESCRIPTION: The patient was placed supine on bed. The neck and chest were prepped and draped with sterile technique. A time-out was completed verifying correct patient, procedure, site, positioning prior to beginning this procedure. Using 1 % lidocaine the catheter tract was anesthetized. Using a Jo-Ann clamp the catheter cuff was freed from surrounding granulation tissue and the catheter was removed successfully. Manual compression was held for hemostasis and a 3-0 nylon suture was placed at the catheter site. Sterile dressing was applied. The patient tolerated the procedure well and in fair condition. PACO BENZ MD Dec 09, 2016 18:27
[2016-12-09 20:00] VITALS: BP 127/60; RESP 16
--- NOTE | 2016-12-09 20:54 | HP ---
DATE OF ADMISSION: 12/04/2016 HISTORY OF PRESENT ILLNESS: Dear Doctors, is a 60-year- old female, whom was admitted to [facility] secondary to chest pain and is being currently worked up with us her medical condition. It seems the patient has a plethora of medical conditions, in which she has been going to the [facility] for right-sided abdominal pain and bacteremia. At that time, the patient had been on respiratory support ventilator and had tracheostomy for about 3 months in which she eventually recovered from respiratory failure. Further, the patient had renal failure requiring hemodialysis and had a permanent chest wall catheter for many months. She now returns for an incidental finding of an abdominal mass in which 2 unsuccessful biopsies were performed in order to get appropriate tissue sample, however, that was not successful. Further, the patient has been having weight loss. The patient has recovered from renal standpoint and her current creatinine level being 1.4. The patient has been making adequate urine. The patient has been having some drainage from the catheter site for possible catheter infection. Infectious Disease has been called to see the patient and suggestion of removal of catheter and send the tip for culture. In addition, further catheter no longer been being needed. REVIEW OF SYSTEMS: Fourteen point review performed negative except as mentioned in HPI. PAST MEDICAL HISTORY: From what we can gather is respiratory failure, history of renal failure, intra-abdominal abscess, questionable intra-abdominal mass, diabetes, hypertension, hypercholesterolemia, and failure to thrive. PAST SURGICAL HISTORY: Right chest wall permanent catheter and 2 attempted abdominal biopsies. FAMILY HISTORY: Positive for hypertension. SOCIAL HISTORY: Denies tobacco, alcohol or illicit drug use. PHYSICAL EXAMINATION: GENERAL: She is awake and able to answer some simple questions. Daughter is at bedside answering questions for her. HEENT: Normocephalic, atraumatic. EOMI. Mucosa moist. Poor dentition. NECK: Supple. No carotid bruit. LUNGS: Bilateral crackles. Good airway entry. CARDIOVASCULAR: S1, S2 present. No murmurs. ABDOMEN: Soft, nontender, nondistended. Bowel sounds positive. EXTREMITIES: Lower extremities palpable femoral pulse. Nonpalpable pedal pulse. Motor and sensory intact. Capillary refill 3-4 seconds. IMPRESSION AND PLAN: End-stage renal disease: Seems the patient's renal failure has gradually recovered and the patient has been making adequate urine. Further, the patient is being currently worked up for possible bacteremia and she no longer needs her Perm catheter as she has recovered from her renal standpoint. I would recommend to remove her Perm catheter and we will send tip for culture for further evaluation. We will schedule this as soon as possible. Discussed findings, plan and management with the patient and daughter at the bedside and they understand. Optimize vascular status (nutrition, exercise, sugar control, and antiplatelets). Thank you for allowing us to partake in the care of your patient. Please call with any questions. Dictated By: Paco New MD /godfrey/osmar /Document#: [id number]
[2016-12-09] MEDS: RANITIDINE 150 MG TAB PO SCH (21:05)
[2016-12-09] MEDS: SENNA TAB PO SCH (21:05)
[2016-12-09] MEDS: morphine 2 MG INJ IV PRN (21:16)
[2016-12-10] MEDS: ACCU-CHEK XX SCH ×5 (02:00→20:42)
[2016-12-10 02:32] VITALS: BP 110/59; RESP 18
--- NOTE | 2016-12-10 04:22 | CONS ---
DATE OF ADMISSION: 12/04/2016 DATE OF CONSULTATION: 12/09/2016 ADDENDUM: Her Robert catheter, which is chronic, was removed on 12/08/2016. Therefore, we may want to either do a straight catheterization of her or just give her 1 dose of amikacin. Probably 1 dose of amikacin would be appropriate. I will dictate my findings to the hospitalist and to Dr. Burr. Dictated By: Alberto Bazzi MD JD/godfrey/ken /Document#: [id number]
--- NOTE | 2016-12-10 04:34 | CONS ---
DATE OF ADMISSION: 12/04/2016 DATE OF CONSULTATION: 12/09/2016 REASON FOR CONSULTATION: Antibiotic management. HISTORY OF PRESENT ILLNESS: Savita Perez is a 60-year-old, female, who was brought in by ambulance from rehab for chest pressure. Her past problems include: 1. Endstage renal disease, on hemodialysis. 2. PermCath in the right internal jugular vein. 3. Adult-onset diabetes mellitus. 4. Anemia of chronic disease. 5. Thrombocytopenia. As noted, the patient had a prolonged stay at [facility] for intra-abdominal infection or abscess. She had a drain put in her abdomen to take out some pus and she was there for 4 months. She was recently discharged to [place], a nursing facility, and her mom remains bedridden. There is a Robert catheter in place. She has been on dialysis for a period of time now. She developed some substernal chest pressure and was brought to the emergency room. PAST MEDICAL HISTORY: Essentially as outlined. PAST SURGICAL HISTORY: PermCath placement. FAMILY HISTORY: Noncontributory. SOCIAL HISTORY: She does not smoke, drink, or abuse drugs. ALLERGIES: NONE TO PENICILLIN, SULFA, OR FOODS. MEDICATION: Per chart. REVIEW OF SYSTEMS: As per HPI. PHYSICAL EXAMINATION: GENERAL: Patient is a very frail-appearing female who is lying in bed, having her PermCath removed at this point. SKIN: Without generalized rash. HEENT: Within normal limits. NECK: Supple. Lymph nodes nonpalpable. CHEST: Decreased breath sounds at the bases. HEART: Without murmur or gallop. ABDOMEN: Soft, nontender, without organo-splenomegaly or masses. EXTREMITIES: Without cyanosis, clubbing, or edema. RECTAL/GENITAL: Exam is deferred. NEUROLOGIC: No focal neurological abnormality. GENITOURINARY: She has a chronic Robert catheter. LABORATORY: A chest x-ray that was done on admission shows no infiltrate or CHF, mild bibasilar atelectasis, right internal jugular central venous line was in place. On admission, her white count was 6.4 and currently on 12/07/2016 was 5.1, hemoglobin and hematocrit was 9.3 and 27.8, platelet count 73,000. Leukocyte esterase in the urine. Leukocyte esterase was 3+ with 107 white cells per high-power field, consistent with a urinary tract infection, although she had indwelling Robert in place. Her urine is growing ESBL and Klebsiella pneumoniae pneumonia. The E. coli is sensitive to imipenem and amikacin. The Klebsiella pneumonia is sensitive to of course amikacin and also is sensitive to cefazolin and cefotaxime. I do not see any antibiotic therapy. She is on nothing at this particular time. Chest x-ray, no CHF or infiltrate, mild bibasilar atelectasis. Abdominal ultrasound, diffuse heterogeneous liver with nodular surface may indicate cirrhosis, splenomegaly, otherwise normal ultrasound of the abdomen and retroperitoneum. IMPRESSION AND PLAN: On 12/08/2016, she was seen by the hospitalist Dr. Redd who noted she had a 4-month hospitalization at [facility] secondary to MSSA bacteremia from a groin abscess. At the present time, the patient is stable. I would treat her with amikacin, pharmacy to dose, to eradicate the E. coli and Klebsiella pneumoniae from her urine. I will dictate my findings to the hospitalist. Dictated By: Alberto Bazzi MD JD/godfrey/ken /Document#: [id number]
[2016-12-10] MEDS: INSULIN GLARGINE [LANtus] 3 ML PEN SC SCH (05:50)
[2016-12-10 06:06] LABS: ABNORMAL IP MESSAGE 1; BASOPHILS % 0.8 % (0.0-2.0); EOSINOPHILS # 0.1 10^3/ul (0.0-0.5); EOSINOPHILS % 2.5 % (0.0-7.0); HEMATOCRIT 26.9 % (37.0-47.0); HEMOGLOBIN 8.6 g/dl (12.0-16.0); LYMPHOCYTES # 1.1 10^3/ul (0.8-2.9); LYMPHOCYTES % 27.5 % (15.0-51.0); MEAN CORPUSCULAR HEMOGLOBIN 30.4 pg (29.0-33.0); MEAN CORPUSCULAR VOLUME 95.1 fl (82.0-101.0); MEAN PLATELET VOLUME 10.8 fl (7.4-10.4); MONOCYTE # 0.4 10^3/ul (0.3-0.9); MONOCYTES % 8.8 % (0.0-11.0); NEUTROPHILS % 60.1 % (39.0-77.0); PLATELET COUNT 79 10^3/UL (140-415); RED BLOOD COUNT 2.83 10^6/ul (4.20-5.40); RED CELL DISTRIBUTION WIDTH 16.3 % (11.5-14.5)
[2016-12-10 06:17] LABS: POSITIVE DIFF @See below
[2016-12-10 06:27] LABS: ALBUMIN 3.2 g/dl (3.3-4.9); ALBUMIN/GLOBULIN RATIO 0.78; BILIRUBIN,INDIRECT 0.4 mg/dl (0-1.1); BILIRUBIN,TOTAL 0.4 mg/dl (0.2-1.3); CALCIUM 9.7 mg/dl (8.4-10.2); CREATININE 1.43 mg/dl (0.44-1.00); MAGNESIUM 2.2 mg/dl (1.7-2.5); PHOSPHORUS 4.2 mg/dl (2.5-4.9); POTASSIUM 3.9 mmol/L (3.5-5.1); TOTAL PROTEIN 7.3 g/dl (6.1-8.1)
[2016-12-10 07:39] VITALS: BP 96/52; RESP 16
--- NOTE | 2016-12-10 07:51 | CONS ---
Date/Time of Note Date/Time of Note DATE: 12/10/16 TIME: 07:48 Assessment/Plan Assessment/Plan Chief Complaint/Hosp Course 1. Renal failure. This patient was previously on hemodialysis. She was last dialyzed on 12/03/2016. She is otherwise doing well. Her renal function has improved. Her BUN is 60 and serum creatinine is 1.43 today. The permacath used for hemodialysis was removed yesterday. She has no edema and her chest x- ray is clear. She does not need dialysis at this time. She is doing well and I will sign off at this point and see again on request. 2. History of staph sepsis. She was at [facility] and had a right groin abscess and then subsequent respiratory failure requiring a ventilator and then acute renal failure requiring dialysis. I suspect that she had acute tubular necrosis which has improved. Hopefully she will not need further dialysis. This remains to be seen. Will follow labs and her urine output. 3. Type 2 diabetes mellitus 4. Malnourished 5. Chest pain which seems to be due to left chest wall tenderness. 6. Unstageable sacral decubitus ulcer. Problems: Consultation Date/Type/Reason Admit Date/Time Dec 04, 2016 at 22:10 Type of Consultation: ID [id number] HR Interval Summary Free Text/Dictation The patient is being seen this morning. She is awake and alert. She says she feels well. The patient is eating without problems. Constitutional: improved, no complaints Exam/Review of Systems Vital Signs Vitals Vital Signs Date Time Temp Pulse Resp B/P Pulse Ox O2 Delivery O2 Flow Rate FiO2 12/10/16 07:39 98.0 73 16 96/52 98 Intake and Output 12/09/16 12/09/16 12/10/16 15:00 23:00 07:00 Intake Total 1371.2 ml 820 ml Balance 1371.2 ml 820 ml Exam Constitutional: alert, frail, oriented Respiratory: clear to auscultation, normal air movement Cardiovascular: regular rate and rhythm Gastrointestinal: non-tender, soft Musculoskeletal: nl extremities to inspection Results Result Diagram: 12/10/16 0515 12/10/16 0515 Results 24 hrs Laboratory Tests Test 12/09/16 08:03 12/09/16 12:02 12/09/16 17:15 12/09/16 21:07 Bedside Glucose 166 137 114 147 Test 12/10/16 05:15 12/10/16 05:44 White Blood Count 4.0 #L Red Blood Count 2.83 L Hemoglobin 8.6 L Hematocrit 26.9 L Mean Corpuscular Volume 95.1 Mean Corpuscular Hemoglobin 30.4 Mean Corpuscular Hemoglobin Concent 32.0 Red Cell Distribution Width 16.3 H Platelet Count 79 L Mean Platelet Volume 10.8 H Neutrophils % 60.1 Lymphocytes % 27.5 Monocytes % 8.8 Eosinophils % 2.5 Basophils % 0.8 Nucleated Red Blood Cells % 0.0 Neutrophils # (Manual) 2.4 Lymphocytes # 1.1 Monocytes # 0.4 Eosinophils # 0.1 Basophils # 0.0 Nucleated Red Blood Cells # 0.0 Sodium Level 138 Potassium Level 3.9 Chloride Level 102 Carbon Dioxide Level 23 Anion Gap 17 H Blood Urea Nitrogen 60 H Creatinine 1.43 H Glucose Level 103 # Calcium Level 9.7 Phosphorus Level 4.2 Magnesium Level 2.2 Total Bilirubin 0.4 Direct Bilirubin 0.00 Indirect Bilirubin 0.4 Aspartate Amino Transf (AST/SGOT) 33 Alanine Aminotransferase (ALT/SGPT) 26 Alkaline Phosphatase 132 H Total Protein 7.3 Albumin 3.2 L Globulin 4.10 H Albumin/Globulin Ratio 0.78 Bedside Glucose 115 Medications Medications Current Medications Ondansetron HCl (Zofran Inj) 4 mg Q6H PRN IV NAUSEA AND/OR VOMITING; Start 02/11 at 03:00 Acetaminophen (Tylenol Tab) 650 mg Q6H PRN PO PAIN LEVEL 1-3 OR FEVER Last administered on 12/06/16 16:05; Admin Dose 650 MG; Start 12/05/16 at 03:00 Morphine Sulfate (morphine) 2 mg Q4H PRN IV PAIN LEVEL 7-10 Last administered on 12/09/16 21:16; Admin Dose 2 MG; Start 12/05/16 at 03:00 Docusate Sodium (Colace) 100 mg Q12H PRN PO CONSTIPATION; Start 12/05/16 at 03: 00 Bisacodyl (Dulcolax) 5 mg DAILY PRN PO CONSTIPATION; Start 12/05/16 at 03:00 Aspirin (Aspirin) 81 mg DAILY PO Last administered on 12/09/16 08:03; Admin Dose 81 MG; Start 12/05/16 at 09:00 Docusate Sodium (Colace) 100 mg BID PO Last administered on 12/09/16 21:05; Admin Dose 100 MG; Start 12/05/16 at 09:00 Ferrous Sulfate (Ferrous Sulfate (Ec)) 325 mg DAILY PO Last administered on 08:03; Admin Dose 325 MG; Start 12/05/16 at 09:00 Multivitamins Therapeutic (Theragran) 1 tab DAILY PO Last administered on 08:03; Admin Dose 1 TAB; Start 12/05/16 at 09:00 Ondansetron HCl (Zofran Tab) 8 mg BID PRN PO NAUSEA AND/OR VOMITING; Start 02/11 at 03:00 Senna (Senokot) 1 tab QHS PO Last administered on 12/09/16 21:05; Admin Dose 1 TAB; Start 12/05/16 at 21:00 Miscellaneous Information 1 ea NOTE XX ; Start 12/05/16 at 03:00 Glucose (Glutose) 15 gm Q15M PRN PO DECREASED GLUCOSE; Start 12/05/16 at 03:00 Glucose (Glutose) 22.5 gm Q15M PRN PO DECREASED GLUCOSE; Start 12/05/16 at 03: 00 Dextrose (D50w Syringe) 25 ml Q15M PRN IV DECREASED GLUCOSE; Start 12/05/16 at 03:00 Dextrose (D50w Syringe) 50 ml Q15M PRN IV DECREASED GLUCOSE; Start 12/05/16 at 03:00 Glucagon (Glucagen) 1 mg Q15M PRN IM DECREASED GLUCOSE; Start 12/05/16 at 03:00 Glucose (Glutose) 15 gm Q15M PRN BUCCAL DECREASED GLUCOSE; Start 12/05/16 at 03 :00 [facility] This patient caba... PRN PRN XX WOUND CARE; Start 12/05/16 at 03:30 Insulin Glargine (Lantus) 30 unit Q24H SC Last administered on 12/10/16 05:50 ; Admin Dose 30 UNIT; Start 12/05/16 at 06:00 Ranitidine HCl (Zantac) 150 mg HS PO Last administered on 12/09/16 21:05; Admin Dose 150 MG; Start 12/05/16 at 21:00 Diagnostic Test (Pha) (Accu-Chek) 1 ea 02 XX Last administered on 12/09/16 02: 00; Admin Dose 1 EA; Start 12/08/16 at 02:00 Miscellaneous Information (Pending Santyl Order For Wound Care) This patient caba... DAILY XX ; Start 12/08/16 at 09:00 Miscellaneous Information (Pending Santyl Order For Wound Care) This patient caba... PRN PRN XX WOUND CARE; Start 12/08/16 at 04:00 Collagenase (Santyl) 1 applic DAILY TOP Last administered on 12/09/16 08:03; Admin Dose 1 APPLIC; Start 12/08/16 at 09:00 Amikacin Sulfate AMIKACIN PER PHARMACY NOTE XX ; Start 12/09/16 at 16:00 Sodium Chloride (NS) 1,000 ml @ 50 mls/hr Q20H IV Last administered on 17:11; Admin Dose 50 MLS/HR; Start 12/09/16 at 17:00 MELVINA FARAH MD Dec 10, 2016 07:50
[2016-12-10] MEDS: DOCUSATE SODIUM 100 MG CAP PO SCH ×2 (08:50→20:41)
[2016-12-10] MEDS: MULTIVITAMINS THERAPEUTIC TAB PO SCH (08:50)
[2016-12-10] MEDS: FERROUS SULFATE (EC) 325 MG TAB PO SCH (08:50)
[2016-12-10] MEDS: ASPIRIN 81 MG TAB PO SCH (08:51)
[2016-12-10] MEDS: COLLAGENASE 30 GM TUBE TOP SCH (08:52)
[2016-12-10] MEDS: INSULIN ASPART [NOVOLOG] 3 ML PEN SC SCH ×4 (09:04→20:41)
[2016-12-10] MEDS: PENDING SANTYL ORDER FOR WOUND CARE XX SCH (09:04)
[2016-12-10] MEDS: ERTAPENEM SODIUM 1 GM in SOD CHLORIDE 0.9% 100 ML IVPB SCH (13:40)
[2016-12-10 13:47] VITALS: BP 116/63; RESP 18
[2016-12-10] MEDS: morphine 2 MG INJ IV PRN (13:50)
--- NOTE | 2016-12-10 13:56 | PN ---
DATE: 12/10/2016 SUBJECTIVE DATA: No acute changes. The patient is lying comfortably in bed. Denies pain, discomfort. No fevers. Her PermCath was discontinued yesterday. MICROBIOLOGY: Urine culture on admission grew Klebsiella pneumonia and E coli ESBL. ANTIBIOTICS: The patient was started initially on amikacin, now changed to Invanz. OBJECTIVE DATA: GENERAL: Well-developed, elderly woman, who is awake, in no distress. HEENT: Head atraumatic, normocephalic. Sclerae anicteric. Buccal mucosa pale, dry. NECK: Supple. RESPIRATORY: Chest rise symmetrical. Breath sounds diminished at the bases. HEART: S1, S2. ABDOMEN: Soft, bowel sounds present. EXTREMITIES: Without cyanosis. ASSESSMENT: 1. Polymicrobial urinary tract infection. 2. Renal failure, status post hemodialysis now off, PermCath was discontinued. 3. Diabetes. 4. Sacral wound. PLAN: The patient remains stable. Started on Invanz to preserve renal function. We will continue her on Invanz for a total of 5 days to treat polymicrobial UTI. Dictated By: Jena Springer NP /godfrey/da /Document#: [id number]
[2016-12-10] MEDS: SOD CHLORIDE 0.9% 1,000 ML IV SCH (15:52)
--- NOTE | 2016-12-10 17:33 | PN ---
Date/Time of Note Date/Time of Note DATE: 12/10/16 TIME: 17:30 Assessment/Plan VTE Prophylaxis VTE Prophylaxis Intervention: SCD's Lines/Catheters IV [facility] Peripheral IV Urinary Cath still in place: No Assessment/Plan Chief Complaint/Hosp Course 60 yo F with recent 4 month hospitalization at [facility] for sepsis 2/2 MSSA bacteremia from groin abscess c/b ARF 2/2 ATN and sepsis requiring HD on which she remains, NSTEMI (type 2), DKA, respiratory failure requiring trach, and critical illness myopathy sent to SNF 8.3 for HERMES. Pt transferred to [facility] 8.9 when she complained of chest pain. #chest pain: likely MSK in origin. however cannot use NSAID given recent renal failure, resolving #UTI: asymptomatic at this time, however unsure if asymptomatic at time of collection, ESBL, consulted ID. started on invanz, for 4 more days #ARF off HD -resolved -sparks dc'd -no need for HD per renal, permacath removed per vascular today. #hyponatremia: resolved -good PO intake today #critical illness myopathy: PT/OT #DM2: continue insulin dispo:pending ID recs then dispo to likely SNF vs family care. Problems: Subjective 24 Hr Interval Summary Free Text/Dictation no acute complaints, all questions answered Exam/Review of Systems Vital Signs Vitals Vital Signs Date Time Temp Pulse Resp B/P Pulse Ox O2 Delivery O2 Flow Rate FiO2 12/10/16 13:47 98.1 78 18 116/63 99 Intake and Output 12/09/16 12/09/16 12/10/16 15:00 23:00 07:00 Intake Total 1371.2 ml 820 ml Balance 1371.2 ml 820 ml Exam Physical exam General: Patient is laying in bed and answers questions appropriately Mentation: Patient is alert and oriented 4, Head: Normocephalic atraumatic Eyes: EOMI, pupils reactive to light Neck: Supple, nontender, midline Respiratory: Clear to auscultation bilaterally Cardiovascular: regular rate, no obvious murmurs Gastrointestinal: non-tender to palpation, bowel sounds heard. Neurological: Moves all extremities spontaneously Skin: No new skin lesions Results Result Diagram: 12/10/1615 12/10/16 0515 Results 24 hrs Laboratory Tests Test 12/09/16 21:07 12/10/16 05:15 12/10/16 05:44 12/10/16 08:10 Bedside Glucose 147 115 White Blood Count 4.0 #L Red Blood Count 2.83 L Hemoglobin 8.6 L Hematocrit 26.9 L Mean Corpuscular Volume 95.1 Mean Corpuscular Hemoglobin 30.4 Mean Corpuscular Hemoglobin Concent 32.0 Red Cell Distribution Width 16.3 H Platelet Count 79 L Mean Platelet Volume 10.8 H Neutrophils % 60.1 Lymphocytes % 27.5 Monocytes % 8.8 Eosinophils % 2.5 Basophils % 0.8 Nucleated Red Blood Cells % 0.0 Neutrophils # (Manual) 2.4 Lymphocytes # 1.1 Monocytes # 0.4 Eosinophils # 0.1 Basophils # 0.0 Nucleated Red Blood Cells # 0.0 Sodium Level 138 Potassium Level 3.9 Chloride Level 102 Carbon Dioxide Level 23 Anion Gap 17 H Blood Urea Nitrogen 60 H Creatinine 1.43 H Glucose Level 103 # Calcium Level 9.7 Phosphorus Level 4.2 Magnesium Level 2.2 Total Bilirubin 0.4 Direct Bilirubin 0.00 Indirect Bilirubin 0.4 Aspartate Amino Transf (AST/SGOT) 33 Alanine Aminotransferase (ALT/SGPT) 26 Alkaline Phosphatase 132 H Total Protein 7.3 Albumin 3.2 L Globulin 4.10 H Albumin/Globulin Ratio 0.78 Lab Scanned Report REFERENCE LAB Test 12/10/16 08:17 12/10/16 12:07 Bedside Glucose 181 105 Medications Medications Current Medications Ondansetron HCl (Zofran Inj) 4 mg Q6H PRN IV NAUSEA AND/OR VOMITING; Start 02/11 at 03:00 Acetaminophen (Tylenol Tab) 650 mg Q6H PRN PO PAIN LEVEL 1-3 OR FEVER Last administered on 12/06/16 16:05; Admin Dose 650 MG; Start 12/05/16 at 03:00 Morphine Sulfate (morphine) 2 mg Q4H PRN IV PAIN LEVEL 7-10 Last administered on 12/10/16 13:50; Admin Dose 2 MG; Start 12/05/16 at 03:00 Docusate Sodium (Colace) 100 mg Q12H PRN PO CONSTIPATION; Start 12/05/16 at 03: 00 Bisacodyl (Dulcolax) 5 mg DAILY PRN PO CONSTIPATION; Start 12/05/16 at 03:00 Aspirin (Aspirin) 81 mg DAILY PO Last administered on 12/10/16 08:51; Admin Dose 81 MG; Start 12/05/16 at 09:00 Docusate Sodium (Colace) 100 mg BID PO Last administered on 12/10/16 08:50; Admin Dose 100 MG; Start 12/05/16 at 09:00 Ferrous Sulfate (Ferrous Sulfate (Ec)) 325 mg DAILY PO Last administered on 08:50; Admin Dose 325 MG; Start 12/05/16 at 09:00 Multivitamins Therapeutic (Theragran) 1 tab DAILY PO Last administered on 08:50; Admin Dose 1 TAB; Start 12/05/16 at 09:00 Ondansetron HCl (Zofran Tab) 8 mg BID PRN PO NAUSEA AND/OR VOMITING; Start 02/11 at 03:00 Senna (Senokot) 1 tab QHS PO Last administered on 12/09/16 21:05; Admin Dose 1 TAB; Start 12/05/16 at 21:00 Miscellaneous Information 1 ea NOTE XX ; Start 12/05/16 at 03:00 Glucose (Glutose) 15 gm Q15M PRN PO DECREASED GLUCOSE; Start 12/05/16 at 03:00 Glucose (Glutose) 22.5 gm Q15M PRN PO DECREASED GLUCOSE; Start 12/05/16 at 03: 00 Dextrose (D50w Syringe) 25 ml Q15M PRN IV DECREASED GLUCOSE; Start 12/05/16 at 03:00 Dextrose (D50w Syringe) 50 ml Q15M PRN IV DECREASED GLUCOSE; Start 12/05/16 at 03:00 Glucagon (Glucagen) 1 mg Q15M PRN IM DECREASED GLUCOSE; Start 12/05/16 at 03:00 Glucose (Glutose) 15 gm Q15M PRN BUCCAL DECREASED GLUCOSE; Start 12/05/16 at 03 :00 Insulin Glargine (Lantus) 30 unit Q24H SC Last administered on 12/10/16 05:50 ; Admin Dose 30 UNIT; Start 12/05/16 at 06:00 Ranitidine HCl (Zantac) 150 mg HS PO Last administered on 12/09/16 21:05; Admin Dose 150 MG; Start 12/05/16 at 21:00 Diagnostic Test (Pha) (Accu-Chek) 1 ea 02 XX Last administered on 12/09/16 02: 00; Admin Dose 1 EA; Start 12/08/16 at 02:00 Collagenase 1 applic 1 applic DAILY TOP Last administered on 12/10/16 08:52; Admin Dose 1 APPLIC; Start 12/08/16 at 09:00 Sodium Chloride 1,000 ml @ 50 mls/hr Q20H IV Last administered on 12/10/16 15 :52; Admin Dose 50 MLS/HR; Start 12/09/16 at 17:00 Ertapenem/Sodium Chloride (Invanz/NS) 100 ml @ 200 mls/hr Q24H IVPB Last administered on 12/10/16 13:40; Admin Dose 200 MLS/HR; Start 12/10/16 at 11:30 POOL PALACIOS Dec 10, 2016 17:33
[2016-12-10 19:40] VITALS: BP 126/67; RESP 20
[2016-12-10] MEDS: RANITIDINE 150 MG TAB PO SCH (20:41)
[2016-12-10] MEDS: SENNA TAB PO SCH (20:41)
[2016-12-11] MEDS: ACCU-CHEK XX SCH ×5 (02:00→20:27)
[2016-12-11 02:23] VITALS: BP 121/60; RESP 18
[2016-12-11 06:25] LABS: WHITE BLOOD COUNT 3.7 10^3/ul (4.8-10.8)
[2016-12-11 06:26] LABS: ABNORMAL IP MESSAGE 1; BASOPHILS % 0.5 % (0.0-2.0); EOSINOPHILS # 0.1 10^3/ul (0.0-0.5); EOSINOPHILS % 2.7 % (0.0-7.0); HEMOGLOBIN 8.8 g/dl (12.0-16.0); LYMPHOCYTES % 26.6 % (15.0-51.0); MEAN CORPUSCULAR HEMOGLOBIN 31.5 pg (29.0-33.0); MEAN CORPUSCULAR HGB CONC 32.6 g/dl (32.0-37.0); MEAN CORPUSCULAR VOLUME 96.8 fl (82.0-101.0); MEAN PLATELET VOLUME 10.7 fl (7.4-10.4); MONOCYTE # 0.4 10^3/ul (0.3-0.9); MONOCYTES % 9.4 % (0.0-11.0); NEUTROPHILS % 60.5 % (39.0-77.0); PLATELET COUNT 85 10^3/UL (140-415); RED BLOOD COUNT 2.79 10^6/ul (4.20-5.40); RED CELL DISTRIBUTION WIDTH 16.3 % (11.5-14.5)
[2016-12-11 06:52] LABS: CALCIUM 9.7 mg/dl (8.4-10.2); CREATININE 1.46 mg/dl (0.44-1.00); MAGNESIUM 2.2 mg/dl (1.7-2.5); PHOSPHORUS 4.2 mg/dl (2.5-4.9); POTASSIUM 3.3 mmol/L (3.5-5.1)
[2016-12-11] MEDS: INSULIN GLARGINE [LANtus] 3 ML PEN SC SCH (06:53)
[2016-12-11 07:00] LABS: POSITIVE DIFF @See below
[2016-12-11 07:31] VITALS: BP 114/60; RESP 18
[2016-12-11] MEDS: INSULIN ASPART [NOVOLOG] 3 ML PEN SC SCH ×4 (08:46→20:27)
[2016-12-11] MEDS: FERROUS SULFATE (EC) 325 MG TAB PO SCH (08:49)
[2016-12-11] MEDS: DOCUSATE SODIUM 100 MG CAP PO SCH ×2 (08:49→20:26)
[2016-12-11] MEDS: ASPIRIN 81 MG TAB PO SCH (08:49)
[2016-12-11] MEDS: morphine 2 MG INJ IV PRN (08:49)
[2016-12-11] MEDS: SOD CHLORIDE 0.9% 1,000 ML IV SCH ×2 (09:00→17:11)
[2016-12-11] MEDS: MULTIVITAMINS THERAPEUTIC TAB PO SCH (09:21)
[2016-12-11] MEDS: COLLAGENASE 30 GM TUBE TOP SCH (12:10)
[2016-12-11] MEDS: ERTAPENEM SODIUM 1 GM in SOD CHLORIDE 0.9% 100 ML IVPB SCH (12:18)
--- NOTE | 2016-12-11 15:29 | PN ---
Date/Time of Note Date/Time of Note DATE: 12/11/16 TIME: 15:27 Assessment/Plan VTE Prophylaxis VTE Prophylaxis Intervention: SCD's Lines/Catheters IV Catheter Type (from Nrs): Peripheral IV Urinary Cath still in place: No Assessment/Plan Chief Complaint/Hosp Course 60 yo F with recent 4 month hospitalization at [facility] for sepsis 2/2 MSSA bacteremia from groin abscess c/b ARF 2/2 ATN and sepsis requiring HD on which she remains, NSTEMI (type 2), DKA, respiratory failure requiring trach, and critical illness myopathy sent to SNF 8.3 for HERMES. Pt transferred to [facility] 8.9 when she complained of chest pain. #chest pain: likely MSK in origin. however cannot use NSAID given recent renal failure, resolving #UTI: asymptomatic at this time, however unsure if asymptomatic at time of collection, ESBL, consulted ID. started on invanz, for 2 more days #ARF off HD -resolved -sparks dc'd -no need for HD per renal, permacath removed per vascular #hyponatremia: resolved -good PO intake today #critical illness myopathy: PT/OT #DM2: continue insulin dispo:pending ID recs then dispo to likely SNF vs family care. Problems: Subjective 24 Hr Interval Summary Free Text/Dictation patient does not want to go back to previous residential, is crying about her concerns. Exam/Review of Systems Vital Signs Vitals Vital Signs Date Time Temp Pulse Resp B/P Pulse Ox O2 Delivery O2 Flow Rate FiO2 12/11/16 07:31 98.1 75 18 114/60 96 Intake and Output 12/10/16 12/10/16 12/11/16 15:00 23:00 07:00 Intake Total 1430 ml 600 ml Balance 1430 ml 600 ml Exam Physical exam General: Patient is laying in bed and answers questions appropriately Mentation: Patient is alert and oriented 4, Head: Normocephalic atraumatic Eyes: EOMI, pupils reactive to light Neck: Supple, nontender, midline Respiratory: Clear to auscultation bilaterally Cardiovascular: regular rate, no obvious murmurs Gastrointestinal: non-tender to palpation, bowel sounds heard. Neurological: Moves all extremities spontaneously Skin: No new skin lesions Results Result Diagram: 12/11/16 0541 12/11/16 0541 Results 24 hrs Laboratory Tests Test 12/10/16 17:58 12/10/16 20:39 12/11/16 05:41 12/11/16 06:36 Bedside Glucose 131 117 163 White Blood Count 3.7 L Red Blood Count 2.79 L Hemoglobin 8.8 L Hematocrit 27.0 L Mean Corpuscular Volume 96.8 Mean Corpuscular Hemoglobin 31.5 Mean Corpuscular Hemoglobin Concent 32.6 Red Cell Distribution Width 16.3 H Platelet Count 85 L Mean Platelet Volume 10.7 H Neutrophils % 60.5 Lymphocytes % 26.6 Monocytes % 9.4 Eosinophils % 2.7 Basophils % 0.5 Nucleated Red Blood Cells % 0.0 Neutrophils # (Manual) 2.3 Lymphocytes # 1.0 Monocytes # 0.4 Eosinophils # 0.1 Basophils # 0.0 Nucleated Red Blood Cells # 0.0 Sodium Level 137 Potassium Level 3.3 L Chloride Level 108 Carbon Dioxide Level 20 L Anion Gap 12 Blood Urea Nitrogen 53 H Creatinine 1.46 H Glucose Level 163 Calcium Level 9.7 Phosphorus Level 4.2 Magnesium Level 2.2 Test 12/11/16 11:51 12/11/16 12:04 Bedside Glucose 179 Lab Scanned Report REFERENCE LAB Medications Medications Current Medications Ondansetron HCl (Zofran Inj) 4 mg Q6H PRN IV NAUSEA AND/OR VOMITING; Start 02/11 at 03:00 Acetaminophen (Tylenol Tab) 650 mg Q6H PRN PO PAIN LEVEL 1-3 OR FEVER Last administered on 12/06/16 16:05; Admin Dose 650 MG; Start 12/05/16 at 03:00 Morphine Sulfate (morphine) 2 mg Q4H PRN IV PAIN LEVEL 7-10 Last administered on 12/11/16 08:49; Admin Dose 2 MG; Start 12/05/16 at 03:00 Docusate Sodium (Colace) 100 mg Q12H PRN PO CONSTIPATION; Start 12/05/16 at 03: 00 Bisacodyl (Dulcolax) 5 mg DAILY PRN PO CONSTIPATION Last administered on 18:16; Admin Dose 5 MG; Start 12/05/16 at 03:00 Aspirin (Aspirin) 81 mg DAILY PO Last administered on 12/11/16 08:49; Admin Dose 81 MG; Start 12/05/16 at 09:00 Docusate Sodium (Colace) 100 mg BID PO Last administered on 12/11/16 08:49; Admin Dose 100 MG; Start 12/05/16 at 09:00 Ferrous Sulfate (Ferrous Sulfate (Ec)) 325 mg DAILY PO Last administered on 08:49; Admin Dose 325 MG; Start 12/05/16 at 09:00 Multivitamins Therapeutic (Theragran) 1 tab DAILY PO Last administered on 09:21; Admin Dose 1 TAB; Start 12/05/16 at 09:00 Ondansetron HCl (Zofran Tab) 8 mg BID PRN PO NAUSEA AND/OR VOMITING; Start 02/11 at 03:00 Senna (Senokot) 1 tab QHS PO Last administered on 12/10/16 20:41; Admin Dose 1 TAB; Start 12/05/16 at 21:00 Miscellaneous Information 1 ea NOTE XX ; Start 12/05/16 at 03:00 Glucose (Glutose) 15 gm Q15M PRN PO DECREASED GLUCOSE; Start 12/05/16 at 03:00 Glucose (Glutose) 22.5 gm Q15M PRN PO DECREASED GLUCOSE; Start 12/05/16 at 03: 00 Dextrose (D50w Syringe) 25 ml Q15M PRN IV DECREASED GLUCOSE; Start 12/05/16 at 03:00 Dextrose (D50w Syringe) 50 ml Q15M PRN IV DECREASED GLUCOSE; Start 12/05/16 at 03:00 Glucagon (Glucagen) 1 mg Q15M PRN IM DECREASED GLUCOSE; Start 12/05/16 at 03:00 Glucose (Glutose) 15 gm Q15M PRN BUCCAL DECREASED GLUCOSE; Start 12/05/16 at 03 :00 Insulin Glargine (Lantus) 30 unit Q24H SC Last administered on 12/11/16 06:53 ; Admin Dose 30 UNIT; Start 12/05/16 at 06:00 Ranitidine HCl (Zantac) 150 mg HS PO Last administered on 12/10/16 20:41; Admin Dose 150 MG; Start 12/05/16 at 21:00 Diagnostic Test (Pha) (Accu-Chek) 1 ea 02 XX Last administered on 12/09/16 02: 00; Admin Dose 1 EA; Start 12/08/16 at 02:00 Collagenase 1 applic 1 applic DAILY TOP Last administered on 12/11/16 12:10; Admin Dose 1 APPLIC; Start 12/08/16 at 09:00 Sodium Chloride 1,000 ml @ 50 mls/hr Q20H IV Last administered on 12/10/16 15 :52; Admin Dose 50 MLS/HR; Start 12/09/16 at 17:00 Ertapenem/Sodium Chloride (Invanz/NS) 100 ml @ 200 mls/hr Q24H IVPB Last administered on 12/11/16 12:18; Admin Dose 200 MLS/HR; Start 12/10/16 at 11:30 POOL PALACIOS Dec 11, 2016 15:29
--- NOTE | 2016-12-11 15:42 | CONS ---
Date/Time of Note Date/Time of Note DATE: 12/11/16 TIME: 15:40 Assessment/Plan Assessment/Plan Chief Complaint/Hosp Course SUBJECTIVE DATA: No acute changes. The patient is lying comfortably in bed. Denies pain, discomfort. No fevers. No dysuria MICROBIOLOGY: Urine culture on admission grew Klebsiella pneumonia and E coli ESBL. ANTIBIOTICS: Invanz. GENERAL: Well-developed, elderly woman, who is awake, in no distress. HEENT: Head atraumatic, normocephalic. Sclerae anicteric. Buccal mucosa pale, dry. NECK: Supple. RESPIRATORY: Chest rise symmetrical. Breath sounds diminished at the bases. HEART: S1, S2. ABDOMEN: Soft, bowel sounds present. EXTREMITIES: Without cyanosis. ASSESSMENT: 1. Polymicrobial urinary tract infection. 2. Renal failure, status post hemodialysis now off, PermCath was discontinued. 3. Diabetes. PLAN: The patient remains stable. Continue Invanz for 4 more days DW staff/pt/daughter at bedside Problems: Consultation Date/Type/Reason Admit Date/Time Dec 04, 2016 at 22:10 Initial Consult Date 12/09/16 Type of Consultation: ID Exam/Review of Systems Vital Signs Vitals Vital Signs Date Time Temp Pulse Resp B/P Pulse Ox O2 Delivery O2 Flow Rate FiO2 12/11/16 07:31 98.1 75 18 114/60 96 Intake and Output 12/10/16 12/10/16 12/11/16 15:00 23:00 07:00 Intake Total 1430 ml 600 ml Balance 1430 ml 600 ml Results Result Diagram: 12/11/16 0541 12/11/16 0541 Results 24 hrs Laboratory Tests Test 12/10/16 17:58 12/10/16 20:39 12/11/16 05:41 12/11/16 06:36 Bedside Glucose 131 117 163 White Blood Count 3.7 L Red Blood Count 2.79 L Hemoglobin 8.8 L Hematocrit 27.0 L Mean Corpuscular Volume 96.8 Mean Corpuscular Hemoglobin 31.5 Mean Corpuscular Hemoglobin Concent 32.6 Red Cell Distribution Width 16.3 H Platelet Count 85 L Mean Platelet Volume 10.7 H Neutrophils % 60.5 Lymphocytes % 26.6 Monocytes % 9.4 Eosinophils % 2.7 Basophils % 0.5 Nucleated Red Blood Cells % 0.0 Neutrophils # (Manual) 2.3 Lymphocytes # 1.0 Monocytes # 0.4 Eosinophils # 0.1 Basophils # 0.0 Nucleated Red Blood Cells # 0.0 Sodium Level 137 Potassium Level 3.3 L Chloride Level 108 Carbon Dioxide Level 20 L Anion Gap 12 Blood Urea Nitrogen 53 H Creatinine 1.46 H Glucose Level 163 Calcium Level 9.7 Phosphorus Level 4.2 Magnesium Level 2.2 Test 12/11/16 11:51 12/11/16 12:04 Bedside Glucose 179 Lab Scanned Report REFERENCE LAB Medications Medications Current Medications Ondansetron HCl (Zofran Inj) 4 mg Q6H PRN IV NAUSEA AND/OR VOMITING; Start 02/11 at 03:00 Acetaminophen (Tylenol Tab) 650 mg Q6H PRN PO PAIN LEVEL 1-3 OR FEVER Last administered on 12/06/16 16:05; Admin Dose 650 MG; Start 12/05/16 at 03:00 Morphine Sulfate (morphine) 2 mg Q4H PRN IV PAIN LEVEL 7-10 Last administered on 12/11/16 08:49; Admin Dose 2 MG; Start 12/05/16 at 03:00 Docusate Sodium (Colace) 100 mg Q12H PRN PO CONSTIPATION; Start 12/05/16 at 03: 00 Bisacodyl (Dulcolax) 5 mg DAILY PRN PO CONSTIPATION Last administered on 18:16; Admin Dose 5 MG; Start 12/05/16 at 03:00 Aspirin (Aspirin) 81 mg DAILY PO Last administered on 12/11/16 08:49; Admin Dose 81 MG; Start 12/05/16 at 09:00 Docusate Sodium (Colace) 100 mg BID PO Last administered on 12/11/16 08:49; Admin Dose 100 MG; Start 12/05/16 at 09:00 Ferrous Sulfate (Ferrous Sulfate (Ec)) 325 mg DAILY PO Last administered on 08:49; Admin Dose 325 MG; Start 12/05/16 at 09:00 Multivitamins Therapeutic (Theragran) 1 tab DAILY PO Last administered on 09:21; Admin Dose 1 TAB; Start 12/05/16 at 09:00 Ondansetron HCl (Zofran Tab) 8 mg BID PRN PO NAUSEA AND/OR VOMITING; Start 02/11 at 03:00 Senna (Senokot) 1 tab QHS PO Last administered on 12/10/16 20:41; Admin Dose 1 TAB; Start 12/05/16 at 21:00 Miscellaneous Information 1 ea NOTE XX ; Start 12/05/16 at 03:00 Glucose (Glutose) 15 gm Q15M PRN PO DECREASED GLUCOSE; Start 12/05/16 at 03:00 Glucose (Glutose) 22.5 gm Q15M PRN PO DECREASED GLUCOSE; Start 12/05/16 at 03: 00 Dextrose (D50w Syringe) 25 ml Q15M PRN IV DECREASED GLUCOSE; Start 12/05/16 at 03:00 Dextrose (D50w Syringe) 50 ml Q15M PRN IV DECREASED GLUCOSE; Start 12/05/16 at 03:00 Glucagon (Glucagen) 1 mg Q15M PRN IM DECREASED GLUCOSE; Start 12/05/16 at 03:00 Glucose (Glutose) 15 gm Q15M PRN BUCCAL DECREASED GLUCOSE; Start 12/05/16 at 03 :00 Insulin Glargine (Lantus) 30 unit Q24H SC Last administered on 12/11/16 06:53 ; Admin Dose 30 UNIT; Start 12/05/16 at 06:00 Ranitidine HCl (Zantac) 150 mg HS PO Last administered on 12/10/16 20:41; Admin Dose 150 MG; Start 12/05/16 at 21:00 Diagnostic Test (Pha) (Accu-Chek) 1 ea 02 XX Last administered on 12/09/16 02: 00; Admin Dose 1 EA; Start 12/08/16 at 02:00 Collagenase 1 applic 1 applic DAILY TOP Last administered on 12/11/16 12:10; Admin Dose 1 APPLIC; Start 12/08/16 at 09:00 Sodium Chloride 1,000 ml @ 50 mls/hr Q20H IV Last administered on 12/10/16 15 :52; Admin Dose 50 MLS/HR; Start 12/09/16 at 17:00 Ertapenem/Sodium Chloride (Invanz/NS) 100 ml @ 200 mls/hr Q24H IVPB Last administered on 12/11/16 12:18; Admin Dose 200 MLS/HR; Start 12/10/16 at 11:30 Heparin Sodium (Porcine) 5000 unit 5,000 unit Q8 SC ; Start 12/11/16 at 22:00 Potassium Chloride (KCl 40 MEQ/250 ML NS) 250 ml @ 62.5 mls/hr ONCE ONCE IVPB ; Start 12/11/16 at 16:30; Stop 12/11/16 at 20:29 KRISTA SAWYER NP Dec 11, 2016 15:41
[2016-12-11] MEDS ORDERED: POTASSIUM CHLORIDE 250 ML IVPB ONE (16:30)
[2016-12-11 19:41] VITALS: BP 105/59; RESP 18
[2016-12-11] MEDS: RANITIDINE 150 MG TAB PO SCH (20:27)
[2016-12-11] MEDS: SENNA TAB PO SCH (20:27)
[2016-12-11] MEDS: HEPARIN 5,000 UNIT/0.5 ML VIAL SC SCH (20:38)
[2016-12-12 02:00] VITALS: BP 122/58; RESP 18
[2016-12-12] MEDS: ACCU-CHEK XX SCH ×5 (02:00→21:39)
[2016-12-12] MEDS: HEPARIN 5,000 UNIT/0.5 ML VIAL SC SCH ×3 (06:01→21:58)
[2016-12-12] MEDS: INSULIN GLARGINE [LANtus] 3 ML PEN SC SCH (06:02)
[2016-12-12 06:25] LABS: CALCIUM 9.9 mg/dl (8.4-10.2); CREATININE 1.22 mg/dl (0.44-1.00); MAGNESIUM 2.2 mg/dl (1.7-2.5); PHOSPHORUS 4.3 mg/dl (2.5-4.9); POTASSIUM 4.2 mmol/L (3.5-5.1)
[2016-12-12 07:34] VITALS: BP 115/65; RESP 18
[2016-12-12] MEDS: INSULIN ASPART [NOVOLOG] 3 ML PEN SC SCH ×4 (08:15→21:00)
[2016-12-12] MEDS: ASPIRIN 81 MG TAB PO SCH (09:24)
[2016-12-12] MEDS: DOCUSATE SODIUM 100 MG CAP PO SCH ×2 (09:24→21:38)
[2016-12-12] MEDS: MULTIVITAMINS THERAPEUTIC TAB PO SCH (09:24)
[2016-12-12] MEDS: FERROUS SULFATE (EC) 325 MG TAB PO SCH (09:24)
[2016-12-12] MEDS: COLLAGENASE 30 GM TUBE TOP SCH (09:25)
[2016-12-12] MEDS: ERTAPENEM SODIUM 1 GM in SOD CHLORIDE 0.9% 100 ML IVPB SCH (11:35)
[2016-12-12 12:57] VITALS: BP 113/58; RESP 20
--- NOTE | 2016-12-12 14:25 | PN ---
Date/Time of Note Date/Time of Note DATE: 12/12/16 TIME: 14:24 Assessment/Plan Lines/Catheters IV Catheter Type (from Nrsg): Peripheral IV Robert in Place (from Nrsg): No Subjective 24 Hr Interval Summary no new vascular events overnight Exam/Review of Systems Vital Signs Vitals Vital Signs Date Time Temp Pulse Resp B/P Pulse Ox O2 Delivery O2 Flow Rate FiO2 12/12/16 12:57 98.2 69 20 113/58 99 Intake and Output 12/11/16 12/11/16 12/12/16 15:00 23:00 07:00 Intake Total 100 ml 1610 ml 350 ml Balance 100 ml 1610 ml 350 ml Exam Constitutional: alert Psych: no complaints Neck: supple Cardiovascular: regular rate and rhythm Gastrointestinal: non-tender, soft Musculoskeletal: nl extremities to inspection Results Result Diagram: 12/11/16 0541 12/12/16 0515 LUCIE BENZ MD Dec 12, 2016 14:25
--- NOTE | 2016-12-12 14:37 | PN ---
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 Pt transferred to [facility] 8.9 when she complained of chest pain. #chest pain: likely MSK in origin. however cannot use NSAID given recent renal failure, resolved #UTI: asymptomatic at this time, however unsure if asymptomatic at time of collection, ESBL, consulted ID. started on invanz, for 2 more days #ARF off HD -resolved -sparks dc'd -no need for HD per renal, permacath removed per vascular #hyponatremia: resolved -good PO intake #critical illness myopathy: PT/OT #DM2: continue insulin dispo:finish abx per ID recs then dispo to likely SNF vs family care. Problems: Subjective 24 Hr Interval Summary Free Text/Dictation no acute complaints Exam/Review of Systems Vital Signs Vitals Vital Signs Date Time Temp Pulse Resp B/P Pulse Ox O2 Delivery O2 Flow Rate FiO2 12/12/16 12:57 98.2 69 20 113/58 99 Intake and Output 12/11/16 12/11/16 12/12/16 15:00 23:00 07:00 Intake Total 100 ml 1610 ml 350 ml Balance 100 ml 1610 ml 350 ml Exam Physical exam General: Patient is laying in bed and answers questions appropriately Mentation: Patient is alert and oriented 4, Head: Normocephalic atraumatic Eyes: EOMI, pupils reactive to light Neck: Supple, nontender, midline Respiratory: Clear to auscultation bilaterally Cardiovascular: regular rate, no obvious murmurs Gastrointestinal: non-tender to palpation, bowel sounds heard. Neurological: Moves all extremities spontaneously Skin: No new skin lesions Results Result Diagram: 12/11/16 0541 12/12/16 0515 Results 24 hrs Laboratory Tests Test 12/11/16 17:30 12/11/16 20:25 12/12/16 05:15 12/12/16 08:07 Bedside Glucose 128 170 144 Sodium Level 143 Potassium Level 4.2 Chloride Level 108 Carbon Dioxide Level 21 Anion Gap 18 H Blood Urea Nitrogen 45 H Creatinine 1.22 H Glucose Level 136 Calcium Level 9.9 Phosphorus Level 4.3 Magnesium Level 2.2 Test 12/12/16 12:17 Bedside Glucose 150 Medications Medications Current Medications Ondansetron HCl (Zofran Inj) 4 mg Q6H PRN IV NAUSEA AND/OR VOMITING; Start 02/11 at 03:00 Acetaminophen (Tylenol Tab) 650 mg Q6H PRN PO PAIN LEVEL 1-3 OR FEVER Last administered on 12/06/16 16:05; Admin Dose 650 MG; Start 12/05/16 at 03:00 Morphine Sulfate (morphine) 2 mg Q4H PRN IV PAIN LEVEL 7-10 Last administered on 12/11/16 08:49; Admin Dose 2 MG; Start 12/05/16 at 03:00 Docusate Sodium (Colace) 100 mg Q12H PRN PO CONSTIPATION; Start 12/05/16 at 03: 00 Bisacodyl (Dulcolax) 5 mg DAILY PRN PO CONSTIPATION Last administered on 18:16; Admin Dose 5 MG; Start 12/05/16 at 03:00 Aspirin (Aspirin) 81 mg DAILY PO Last administered on 12/12/16 09:24; Admin Dose 81 MG; Start 12/05/16 at 09:00 Docusate Sodium (Colace) 100 mg BID PO Last administered on 12/12/16 09:24; Admin Dose 100 MG; Start 12/05/16 at 09:00 Ferrous Sulfate (Ferrous Sulfate (Ec)) 325 mg DAILY PO Last administered on 09:24; Admin Dose 325 MG; Start 12/05/16 at 09:00 Multivitamins Therapeutic (Theragran) 1 tab DAILY PO Last administered on 09:24; Admin Dose 1 TAB; Start 12/05/16 at 09:00 Ondansetron HCl (Zofran Tab) 8 mg BID PRN PO NAUSEA AND/OR VOMITING; Start 02/11 at 03:00 Senna (Senokot) 1 tab QHS PO Last administered on 12/11/16 20:27; Admin Dose 1 TAB; Start 12/05/16 at 21:00 Miscellaneous Information 1 ea NOTE XX ; Start 12/05/16 at 03:00 Glucose (Glutose) 15 gm Q15M PRN PO DECREASED GLUCOSE; Start 12/05/16 at 03:00 Glucose (Glutose) 22.5 gm Q15M PRN PO DECREASED GLUCOSE; Start 12/05/16 at 03: 00 Dextrose (D50w Syringe) 25 ml Q15M PRN IV DECREASED GLUCOSE; Start 12/05/16 at 03:00 Dextrose (D50w Syringe) 50 ml Q15M PRN IV DECREASED GLUCOSE; Start 12/05/16 at 03:00 Glucagon (Glucagen) 1 mg Q15M PRN IM DECREASED GLUCOSE; Start 12/05/16 at 03:00 Glucose (Glutose) 15 gm Q15M PRN BUCCAL DECREASED GLUCOSE; Start 12/05/16 at 03 :00 Insulin Glargine (Lantus) 30 unit Q24H SC Last administered on 12/12/16 06:02 ; Admin Dose 30 UNIT; Start 12/05/16 at 06:00 Ranitidine HCl (Zantac) 150 mg HS PO Last administered on 12/11/16 20:27; Admin Dose 150 MG; Start 12/05/16 at 21:00 Diagnostic Test (Pha) (Accu-Chek) 1 ea 02 XX Last administered on 12/09/16 02: 00; Admin Dose 1 EA; Start 12/08/16 at 02:00 Collagenase 1 applic 1 applic DAILY TOP Last administered on 12/12/16 09:25; Admin Dose 1 APPLIC; Start 12/08/16 at 09:00 Sodium Chloride 1,000 ml @ 50 mls/hr Q20H IV Last administered on 12/11/16 17 :11; Admin Dose 50 MLS/HR; Start 12/09/16 at 17:00 Ertapenem/Sodium Chloride (Invanz/NS) 100 ml @ 200 mls/hr Q24H IVPB Last administered on 12/12/16 11:35; Admin Dose 200 MLS/HR; Start 12/10/16 at 11:30 Heparin Sodium (Porcine) (Heparin (5000 Units/0.5 ml)) 5,000 unit Q8 SC Last administered on 12/12/16 06:01; Admin Dose 5,000 UNIT; Start 12/11/16 at 22:00 POOL PALACIOS Dec 12, 2016 14:37
[2016-12-12] MEDS: BALSAM PERU/CASTOR OIL 60 GM TUBE TOP SCH ×2 (15:00→21:38)
--- NOTE | 2016-12-12 15:19 | CONS ---
Date/Time of Note Date/Time of Note DATE: 12/12/16 TIME: 15:18 Assessment/Plan Assessment/Plan Chief Complaint/Hosp Course SUBJECTIVE DATA: No acute changes. The patient is lying comfortably in bed. Denies pain, discomfort. No fevers. No dysuria MICROBIOLOGY: Urine culture on admission grew Klebsiella pneumonia and E coli ESBL. ANTIBIOTICS: Invanz. GENERAL: Well-developed, elderly woman, who is awake, in no distress. HEENT: Head atraumatic, normocephalic. Sclerae anicteric. Buccal mucosa pale, dry. NECK: Supple. RESPIRATORY: Chest rise symmetrical. Breath sounds diminished at the bases. HEART: S1, S2. ABDOMEN: Soft, bowel sounds present. EXTREMITIES: Without cyanosis. ASSESSMENT: 1. Polymicrobial urinary tract infection. 2. Renal failure, status post hemodialysis now off, PermCath was discontinued. 3. Diabetes. PLAN: The patient remains stable. Continue Invanz to complete treatment for UTI DW staff/pt/daughter at bedside Problems: Consultation Date/Type/Reason Admit Date/Time Dec 04, 2016 at 22:10 Initial Consult Date 12/09/16 Type of Consultation: ID Exam/Review of Systems Vital Signs Vitals Vital Signs Date Time Temp Pulse Resp B/P Pulse Ox O2 Delivery O2 Flow Rate FiO2 12/12/16 12:57 98.2 69 20 113/58 99 Intake and Output 12/11/16 12/11/16 12/12/16 15:00 23:00 07:00 Intake Total 100 ml 1610 ml 350 ml Balance 100 ml 1610 ml 350 ml Results Result Diagram: 12/11/16 0541 12/12/16 0515 Results 24 hrs Laboratory Tests Test 12/11/16 17:30 12/11/16 20:25 12/12/16 05:15 12/12/16 08:07 Bedside Glucose 128 170 144 Sodium Level 143 Potassium Level 4.2 Chloride Level 108 Carbon Dioxide Level 21 Anion Gap 18 H Blood Urea Nitrogen 45 H Creatinine 1.22 H Glucose Level 136 Calcium Level 9.9 Phosphorus Level 4.3 Magnesium Level 2.2 Test 12/12/16 12:17 Bedside Glucose 150 Medications Medications Current Medications Ondansetron HCl (Zofran Inj) 4 mg Q6H PRN IV NAUSEA AND/OR VOMITING; Start 02/11 at 03:00 Acetaminophen (Tylenol Tab) 650 mg Q6H PRN PO PAIN LEVEL 1-3 OR FEVER Last administered on 12/06/16 16:05; Admin Dose 650 MG; Start 12/05/16 at 03:00 Morphine Sulfate (morphine) 2 mg Q4H PRN IV PAIN LEVEL 7-10 Last administered on 12/11/16 08:49; Admin Dose 2 MG; Start 12/05/16 at 03:00 Docusate Sodium (Colace) 100 mg Q12H PRN PO CONSTIPATION; Start 12/05/16 at 03: 00 Bisacodyl (Dulcolax) 5 mg DAILY PRN PO CONSTIPATION Last administered on 18:16; Admin Dose 5 MG; Start 12/05/16 at 03:00 Aspirin (Aspirin) 81 mg DAILY PO Last administered on 12/12/16 09:24; Admin Dose 81 MG; Start 12/05/16 at 09:00 Docusate Sodium (Colace) 100 mg BID PO Last administered on 12/12/16 09:24; Admin Dose 100 MG; Start 12/05/16 at 09:00 Ferrous Sulfate (Ferrous Sulfate (Ec)) 325 mg DAILY PO Last administered on 09:24; Admin Dose 325 MG; Start 12/05/16 at 09:00 Multivitamins Therapeutic (Theragran) 1 tab DAILY PO Last administered on 09:24; Admin Dose 1 TAB; Start 12/05/16 at 09:00 Ondansetron HCl (Zofran Tab) 8 mg BID PRN PO NAUSEA AND/OR VOMITING; Start 02/11 at 03:00 Senna (Senokot) 1 tab QHS PO Last administered on 12/11/16 20:27; Admin Dose 1 TAB; Start 12/05/16 at 21:00 Miscellaneous Information 1 ea NOTE XX ; Start 12/05/16 at 03:00 Glucose (Glutose) 15 gm Q15M PRN PO DECREASED GLUCOSE; Start 12/05/16 at 03:00 Glucose (Glutose) 22.5 gm Q15M PRN PO DECREASED GLUCOSE; Start 12/05/16 at 03: 00 Dextrose (D50w Syringe) 25 ml Q15M PRN IV DECREASED GLUCOSE; Start 12/05/16 at 03:00 Dextrose (D50w Syringe) 50 ml Q15M PRN IV DECREASED GLUCOSE; Start 12/05/16 at 03:00 Glucagon (Glucagen) 1 mg Q15M PRN IM DECREASED GLUCOSE; Start 12/05/16 at 03:00 Glucose (Glutose) 15 gm Q15M PRN BUCCAL DECREASED GLUCOSE; Start 12/05/16 at 03 :00 Insulin Glargine (Lantus) 30 unit Q24H SC Last administered on 12/12/16 06:02 ; Admin Dose 30 UNIT; Start 12/05/16 at 06:00 Ranitidine HCl (Zantac) 150 mg HS PO Last administered on 12/11/16 20:27; Admin Dose 150 MG; Start 12/05/16 at 21:00 Diagnostic Test (Pha) (Accu-Chek) 1 ea 02 XX Last administered on 12/09/16 02: 00; Admin Dose 1 EA; Start 12/08/16 at 02:00 Collagenase 1 applic 1 applic DAILY TOP Last administered on 12/12/16 09:25; Admin Dose 1 APPLIC; Start 12/08/16 at 09:00 Sodium Chloride 1,000 ml @ 50 mls/hr Q20H IV Last administered on 12/11/16 17 :11; Admin Dose 50 MLS/HR; Start 12/09/16 at 17:00 Ertapenem/Sodium Chloride (Invanz/NS) 100 ml @ 200 mls/hr Q24H IVPB Last administered on 12/12/16 11:35; Admin Dose 200 MLS/HR; Start 12/10/16 at 11:30 Heparin Sodium (Porcine) (Heparin (5000 Units/0.5 ml)) 5,000 unit Q8 SC Last administered on 12/12/16 06:01; Admin Dose 5,000 UNIT; Start 12/11/16 at 22:00 KRISTA SAWYER NP Dec 12, 2016 15:19
[2016-12-12] MEDS: SOD CHLORIDE 0.9% 1,000 ML IV SCH (19:30)
[2016-12-12 19:46] VITALS: BP 130/63; RESP 20
[2016-12-12] MEDS: SENNA TAB PO SCH (21:38)
[2016-12-12] MEDS: RANITIDINE 150 MG TAB PO SCH (21:38)
[2016-12-13] MEDS: SOD CHLORIDE 0.9% 1,000 ML IV SCH ×3 (01:00→21:00)
[2016-12-13] MEDS: ACCU-CHEK XX SCH ×5 (01:27→21:34)
[2016-12-13 01:50] VITALS: BP 131/68; RESP 18
[2016-12-13 06:06] LABS: CALCIUM 9.5 mg/dl (8.4-10.2); CREATININE 1.08 mg/dl (0.44-1.00); MAGNESIUM 2.2 mg/dl (1.7-2.5); PHOSPHORUS 3.8 mg/dl (2.5-4.9); POTASSIUM 3.9 mmol/L (3.5-5.1)
[2016-12-13] MEDS: INSULIN GLARGINE [LANtus] 3 ML PEN SC SCH (06:41)
[2016-12-13] MEDS: HEPARIN 5,000 UNIT/0.5 ML VIAL SC SCH ×3 (06:44→21:51)
[2016-12-13 07:40] VITALS: BP 131/68; RESP 18
[2016-12-13] MEDS: INSULIN ASPART [NOVOLOG] 3 ML PEN SC SCH ×4 (08:09→21:52)
[2016-12-13] MEDS: FERROUS SULFATE (EC) 325 MG TAB PO SCH (09:01)
[2016-12-13] MEDS: ASPIRIN 81 MG TAB PO SCH (09:01)
[2016-12-13] MEDS: MULTIVITAMINS THERAPEUTIC TAB PO SCH (09:01)
[2016-12-13] MEDS: DOCUSATE SODIUM 100 MG CAP PO SCH ×2 (09:01→21:00)
[2016-12-13] MEDS: COLLAGENASE 30 GM TUBE TOP SCH (09:01)
[2016-12-13] MEDS: BALSAM PERU/CASTOR OIL 60 GM TUBE TOP SCH ×2 (09:02→21:34)
[2016-12-13] MEDS: ERTAPENEM SODIUM 1 GM in SOD CHLORIDE 0.9% 100 ML IVPB SCH (11:43)
[2016-12-13 14:00] VITALS: BP 130/72; RESP 20
--- NOTE | 2016-12-13 16:18 | PN ---
Date/Time of Note Date/Time of Note DATE: 12/13/16 TIME: 16:14 Assessment/Plan VTE Prophylaxis VTE Prophylaxis Intervention: SCD's Lines/Catheters IV Catheter Type (from Nrs): Peripheral IV Urinary Cath still in place: No Assessment/Plan Chief Complaint/Hosp Course Patient is a 60-year-old female with recent four-month hospitalization at [facility] for sepsis secondary to bacteremia and groin abscess who was transferred from her detention after complaining of chest pain, found to have UTI. 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 -Barrier to discharge at this time is patient's stage IV sacral decubitus ulcer , difficult to find a wound care provider to continue wound care and outpatient setting -Continue medications as needed -Wound care Problems: Subjective 24 Hr Interval Summary Free Text/Dictation no acute complaints Exam/Review of Systems Vital Signs Vitals Vital Signs Date Time Temp Pulse Resp B/P Pulse Ox O2 Delivery O2 Flow Rate FiO2 12/13/16 14:00 98.0 82 20 130/72 96 Intake and Output 12/12/16 12/12/16 12/13/16 15:00 23:00 07:00 Intake Total 100 ml 1130 ml 740 ml Balance 100 ml 1130 ml 740 ml Exam Physical exam General: Patient is laying in bed and answers questions appropriately Mentation: Patient is alert and oriented 4, Head: Normocephalic atraumatic Eyes: EOMI, pupils reactive to light Neck: Supple, nontender, midline Respiratory: Clear to auscultation bilaterally Cardiovascular: regular rate, no obvious murmurs Gastrointestinal: non-tender to palpation, bowel sounds heard. Neurological: Moves all extremities spontaneously Skin: No new skin lesions Results Result Diagram: 12/11/16 0541 12/13/16 0503 Results 24 hrs Laboratory Tests Test 12/12/16 17:30 12/12/16 21:36 12/13/16 05:03 12/13/16 06:39 Bedside Glucose 110 148 125 Sodium Level 141 Potassium Level 3.9 Chloride Level 109 Carbon Dioxide Level 19 L Anion Gap 17 H Blood Urea Nitrogen 39 H Creatinine 1.08 H Glucose Level 130 Calcium Level 9.5 Phosphorus Level 3.8 Magnesium Level 2.2 Test 12/13/16 08:08 12/13/16 12:19 Bedside Glucose 118 129 Medications Medications Current Medications Ondansetron HCl (Zofran Inj) 4 mg Q6H PRN IV NAUSEA AND/OR VOMITING; Start 02/11 at 03:00 Acetaminophen (Tylenol Tab) 650 mg Q6H PRN PO PAIN LEVEL 1-3 OR FEVER Last administered on 12/06/16 16:05; Admin Dose 650 MG; Start 12/05/16 at 03:00 Morphine Sulfate (morphine) 2 mg Q4H PRN IV PAIN LEVEL 7-10 Last administered on 12/11/16 08:49; Admin Dose 2 MG; Start 12/05/16 at 03:00 Docusate Sodium (Colace) 100 mg Q12H PRN PO CONSTIPATION; Start 12/05/16 at 03: 00 Bisacodyl (Dulcolax) 5 mg DAILY PRN PO CONSTIPATION Last administered on 18:16; Admin Dose 5 MG; Start 12/05/16 at 03:00 Aspirin (Aspirin) 81 mg DAILY PO Last administered on 12/13/16 09:01; Admin Dose 81 MG; Start 12/05/16 at 09:00 Docusate Sodium (Colace) 100 mg BID PO Last administered on 12/13/16 09:01; Admin Dose 100 MG; Start 12/05/16 at 09:00 Ferrous Sulfate (Ferrous Sulfate (Ec)) 325 mg DAILY PO Last administered on 09:01; Admin Dose 325 MG; Start 12/05/16 at 09:00 Multivitamins Therapeutic (Theragran) 1 tab DAILY PO Last administered on 09:01; Admin Dose 1 TAB; Start 12/05/16 at 09:00 Ondansetron HCl (Zofran Tab) 8 mg BID PRN PO NAUSEA AND/OR VOMITING; Start 02/11 at 03:00 Senna (Senokot) 1 tab QHS PO Last administered on 12/12/16 21:38; Admin Dose 1 TAB; Start 12/05/16 at 21:00 Miscellaneous Information 1 ea NOTE XX ; Start 12/05/16 at 03:00 Glucose (Glutose) 15 gm Q15M PRN PO DECREASED GLUCOSE; Start 12/05/16 at 03:00 Glucose (Glutose) 22.5 gm Q15M PRN PO DECREASED GLUCOSE; Start 12/05/16 at 03: 00 Dextrose (D50w Syringe) 25 ml Q15M PRN IV DECREASED GLUCOSE; Start 12/05/16 at 03:00 Dextrose (D50w Syringe) 50 ml Q15M PRN IV DECREASED GLUCOSE; Start 12/05/16 at 03:00 Glucagon (Glucagen) 1 mg Q15M PRN IM DECREASED GLUCOSE; Start 12/05/16 at 03:00 Glucose (Glutose) 15 gm Q15M PRN BUCCAL DECREASED GLUCOSE; Start 12/05/16 at 03 :00 Insulin Glargine (Lantus) 30 unit Q24H SC Last administered on 12/13/16 06:41 ; Admin Dose 30 UNIT; Start 12/05/16 at 06:00 Ranitidine HCl (Zantac) 150 mg HS PO Last administered on 12/12/16 21:38; Admin Dose 150 MG; Start 12/05/16 at 21:00 Diagnostic Test (Pha) (Accu-Chek) 1 ea 02 XX Last administered on 12/09/16 02: 00; Admin Dose 1 EA; Start 12/08/16 at 02:00 Collagenase 1 applic 1 applic DAILY TOP Last administered on 12/13/16 09:01; Admin Dose 1 APPLIC; Start 12/08/16 at 09:00 Sodium Chloride 1,000 ml @ 50 mls/hr Q20H IV Last administered on 12/12/16 19 :30; Admin Dose 50 MLS/HR; Start 12/09/16 at 17:00 Ertapenem/Sodium Chloride (Invanz/NS) 100 ml @ 200 mls/hr Q24H IVPB Last administered on 12/13/16 11:43; Admin Dose 200 MLS/HR; Start 12/10/16 at 11:30 Heparin Sodium (Porcine) (Heparin (5000 Units/0.5 ml)) 5,000 unit Q8 SC Last administered on 12/13/16 14:30; Admin Dose 5,000 UNIT; Start 12/11/16 at 22:00 POOL PALACIOS Dec 13, 2016 16:18
[2016-12-13 20:15] VITALS: BP 112/55; RESP 18
[2016-12-13] MEDS: SENNA TAB PO SCH (21:00)
[2016-12-13] MEDS: RANITIDINE 150 MG TAB PO SCH (21:33)
[2016-12-14] MEDS: ACCU-CHEK XX SCH ×5 (01:50→21:36)
[2016-12-14 02:05] VITALS: BP 108/57; RESP 18
[2016-12-14] MEDS: HEPARIN 5,000 UNIT/0.5 ML VIAL SC SCH ×3 (05:55→21:41)
[2016-12-14] MEDS: INSULIN GLARGINE [LANtus] 3 ML PEN SC SCH (05:59)
[2016-12-14 07:41] VITALS: BP 122/58; RESP 16
[2016-12-14] MEDS: INSULIN ASPART [NOVOLOG] 3 ML PEN SC SCH ×4 (08:12→21:00)
[2016-12-14] MEDS: BALSAM PERU/CASTOR OIL 60 GM TUBE TOP SCH ×2 (08:50→21:36)
[2016-12-14] MEDS: COLLAGENASE 30 GM TUBE TOP SCH (08:50)
[2016-12-14] MEDS: MULTIVITAMINS THERAPEUTIC TAB PO SCH (09:03)
[2016-12-14] MEDS: DOCUSATE SODIUM 100 MG CAP PO SCH ×2 (09:03→21:35)
[2016-12-14] MEDS: ASPIRIN 81 MG TAB PO SCH (09:03)
[2016-12-14] MEDS: FERROUS SULFATE (EC) 325 MG TAB PO SCH (09:03)
--- NOTE | 2016-12-14 12:30 | PN ---
Date/Time of Note Date/Time of Note DATE: 12/14/16 TIME: 12:28 Assessment/Plan VTE Prophylaxis VTE Prophylaxis Intervention: heparin Lines/Catheters IV Catheter Type (from Nrs): Peripheral IV Urinary Cath still in place: No Assessment/Plan Chief Complaint/Hosp Course Patient is a 60-year-old female with recent four-month hospitalization at [facility] for sepsis secondary to bacteremia and groin abscess who was transferred from her long term after complaining of chest pain, found to have UTI. 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 -Barrier to discharge at this time is patient's stage IV sacral decubitus ulcer , difficult to find a wound care provider to continue wound care and outpatient setting -Continue medications as needed -Wound care DISPO: awaiting wound care company, then DC back to long term. Problems: Subjective 24 Hr Interval Summary Free Text/Dictation no acute change Exam/Review of Systems Vital Signs Vitals Vital Signs Date Time Temp Pulse Resp B/P Pulse Ox O2 Delivery O2 Flow Rate FiO2 12/14/16 07:41 98.0 71 16 122/58 100 Intake and Output 12/13/16 12/13/16 12/14/16 15:00 23:00 07:00 Intake Total 100 ml 1560 ml 1340 ml Output Total 400 ml Balance 100 ml 1560 ml 940 ml Exam Physical exam General: Patient is laying in bed and answers questions appropriately Mentation: Patient is alert and oriented 4, Head: Normocephalic atraumatic Eyes: EOMI, pupils reactive to light Neck: Supple, nontender, midline Respiratory: Clear to auscultation bilaterally Cardiovascular: regular rate, no obvious murmurs Gastrointestinal: non-tender to palpation, bowel sounds heard. Neurological: Moves all extremities spontaneously Skin: No new skin lesions Results Result Diagram: 12/11/16 0541 12/13/16 0503 Results 24 hrs Laboratory Tests Test 12/13/16 17:59 12/13/16 21:46 12/14/16 01:49 12/14/16 05:46 Bedside Glucose 160 204 163 135 Test 12/14/16 08:11 Bedside Glucose 106 Medications Medications Current Medications Ondansetron HCl (Zofran Inj) 4 mg Q6H PRN IV NAUSEA AND/OR VOMITING; Start 02/11 at 03:00 Acetaminophen (Tylenol Tab) 650 mg Q6H PRN PO PAIN LEVEL 1-3 OR FEVER Last administered on 12/06/16 16:05; Admin Dose 650 MG; Start 12/05/16 at 03:00 Morphine Sulfate (morphine) 2 mg Q4H PRN IV PAIN LEVEL 7-10 Last administered on 12/11/16 08:49; Admin Dose 2 MG; Start 12/05/16 at 03:00 Docusate Sodium (Colace) 100 mg Q12H PRN PO CONSTIPATION; Start 12/05/16 at 03: 00 Bisacodyl (Dulcolax) 5 mg DAILY PRN PO CONSTIPATION Last administered on 18:16; Admin Dose 5 MG; Start 12/05/16 at 03:00 Aspirin (Aspirin) 81 mg DAILY PO Last administered on 12/14/16 09:03; Admin Dose 81 MG; Start 12/05/16 at 09:00 Docusate Sodium (Colace) 100 mg BID PO Last administered on 12/14/16 09:03; Admin Dose 100 MG; Start 12/05/16 at 09:00 Ferrous Sulfate (Ferrous Sulfate (Ec)) 325 mg DAILY PO Last administered on 09:03; Admin Dose 325 MG; Start 12/05/16 at 09:00 Multivitamins Therapeutic (Theragran) 1 tab DAILY PO Last administered on 09:03; Admin Dose 1 TAB; Start 12/05/16 at 09:00 Ondansetron HCl (Zofran Tab) 8 mg BID PRN PO NAUSEA AND/OR VOMITING; Start 02/11 at 03:00 Senna (Senokot) 1 tab QHS PO Last administered on 12/12/16 21:38; Admin Dose 1 TAB; Start 12/05/16 at 21:00 Miscellaneous Information 1 ea NOTE XX ; Start 12/05/16 at 03:00 Glucose (Glutose) 15 gm Q15M PRN PO DECREASED GLUCOSE; Start 12/05/16 at 03:00 Glucose (Glutose) 22.5 gm Q15M PRN PO DECREASED GLUCOSE; Start 12/05/16 at 03: 00 Dextrose (D50w Syringe) 25 ml Q15M PRN IV DECREASED GLUCOSE; Start 12/05/16 at 03:00 Dextrose (D50w Syringe) 50 ml Q15M PRN IV DECREASED GLUCOSE; Start 12/05/16 at 03:00 Glucagon (Glucagen) 1 mg Q15M PRN IM DECREASED GLUCOSE; Start 12/05/16 at 03:00 Glucose (Glutose) 15 gm Q15M PRN BUCCAL DECREASED GLUCOSE; Start 12/05/16 at 03 :00 Insulin Glargine (Lantus) 30 unit Q24H SC Last administered on 12/14/16 05:59 ; Admin Dose 30 UNIT; Start 12/05/16 at 06:00 Ranitidine HCl (Zantac) 150 mg HS PO Last administered on 12/13/16 21:33; Admin Dose 150 MG; Start 12/05/16 at 21:00 Diagnostic Test (Pha) (Accu-Chek) 1 ea 02 XX Last administered on 12/14/16 01: 50; Admin Dose 1 EA; Start 12/08/16 at 02:00 Collagenase 1 applic 1 applic DAILY TOP Last administered on 12/14/16 08:50; Admin Dose 1 APPLIC; Start 12/08/16 at 09:00 Sodium Chloride (NS) 1,000 ml @ 50 mls/hr Q20H IV Last administered on 18:31; Admin Dose 50 MLS/HR; Start 12/09/16 at 17:00 Heparin Sodium (Porcine) (Heparin (5000 Units/0.5 ml)) 5,000 unit Q8 SC Last administered on 12/14/16 05:55; Admin Dose 5,000 UNIT; Start 12/11/16 at 22:00 POOL PALACIOS Dec 14, 2016 12:30
[2016-12-14 14:00] VITALS: BP 120/60; RESP 18
[2016-12-14] MEDS: SOD CHLORIDE 0.9% 1,000 ML IV SCH ×2 (14:32→17:00)
[2016-12-14 20:29] VITALS: BP 123/66; RESP 18
[2016-12-14] MEDS: RANITIDINE 150 MG TAB PO SCH (21:35)
[2016-12-14] MEDS: SENNA TAB PO SCH (21:35)
[2016-12-15] MEDS: ACCU-CHEK XX SCH ×5 (02:00→21:00)
[2016-12-15 02:36] VITALS: BP 125/69; RESP 16
[2016-12-15] MEDS: HEPARIN 5,000 UNIT/0.5 ML VIAL SC SCH ×3 (06:31→21:55)
[2016-12-15] MEDS: INSULIN GLARGINE [LANtus] 3 ML PEN SC SCH (06:57)
[2016-12-15 07:40] VITALS: BP 85/46; RESP 18
[2016-12-15] MEDS: INSULIN ASPART [NOVOLOG] 3 ML PEN SC SCH ×4 (08:08→21:49)
[2016-12-15] MEDS: FERROUS SULFATE (EC) 325 MG TAB PO SCH (09:46)
[2016-12-15] MEDS: DOCUSATE SODIUM 100 MG CAP PO SCH ×2 (09:46→21:45)
[2016-12-15] MEDS: MULTIVITAMINS THERAPEUTIC TAB PO SCH (09:46)
[2016-12-15] MEDS: ASPIRIN 81 MG TAB PO SCH (09:46)
[2016-12-15] MEDS: COLLAGENASE 30 GM TUBE TOP SCH (09:47)
[2016-12-15] MEDS: BALSAM PERU/CASTOR OIL 60 GM TUBE TOP SCH ×2 (09:47→21:46)
[2016-12-15] MEDS: SOD CHLORIDE 0.9% 1,000 ML IV SCH (09:48)
[2016-12-15 10:11] VITALS: BP 107/55; PULSE 77; RESP 18
--- NOTE | 2016-12-15 11:19 | PN ---
Date/Time of Note Date/Time of Note DATE: 12/15/16 TIME: 11:18 Assessment/Plan VTE Prophylaxis VTE Prophylaxis Intervention: heparin Lines/Catheters IV Catheter Type (from Nrs): Peripheral IV Urinary Cath still in place: No Assessment/Plan Chief Complaint/Hosp Course Patient is a 60-year-old female with recent four-month hospitalization at [facility] for sepsis secondary to bacteremia and groin abscess who was transferred from her nursing home after complaining of chest pain, found to have UTI. Chest pain, resolved, likely muscular skeletal UTI, finished course of antibiotics Acute renal failure, resolved, off hemodialysis Hyponatremia, resolved Critical illness myopathy, ongoing Diabetes mellitus, Plan -Patient is stable from a medical standpoint, finished course of antibiotics, agreeable to go back to nursing home once reassured they will not drop her anymore. -Barrier to discharge at this time is patient's stage IV sacral decubitus ulcer , difficult to find a wound care provider to continue wound care and outpatient setting -Continue medications as needed -Wound care DISPO: awaiting wound care company, then DC back to nursing home. Problems: Subjective 24 Hr Interval Summary Free Text/Dictation very weak, no acute changes. Exam/Review of Systems Vital Signs Vitals Vital Signs Date Time Temp Pulse Resp B/P Pulse Ox O2 Delivery O2 Flow Rate FiO2 12/15/16 10:11 98.4 77 18 107/55 12/15/16 07:40 99 Intake and Output 12/14/16 12/14/16 12/15/16 15:00 23:00 07:00 Intake Total 820 ml 1280 ml Balance 820 ml 1280 ml Exam Physical exam General: Patient is laying in bed and answers questions appropriately, cachetic Mentation: Patient is alert and oriented 4, Head: Normocephalic atraumatic Eyes: EOMI, pupils reactive to light Neck: Supple, nontender, midline Respiratory: Clear to auscultation bilaterally Cardiovascular: regular rate, no obvious murmurs Gastrointestinal: non-tender to palpation, bowel sounds heard. Neurological: Moves all extremities spontaneously Skin: No new skin lesions Results Result Diagram: 12/11/16 0541 12/13/16 0503 Results 24 hrs Laboratory Tests Test 12/14/16 12:47 12/14/16 17:32 12/14/16 21:34 12/15/16 06:28 Bedside Glucose 175 162 145 89 Test 12/15/16 08:07 Bedside Glucose 87 Medications Medications Current Medications Ondansetron HCl (Zofran Inj) 4 mg Q6H PRN IV NAUSEA AND/OR VOMITING; Start 02/11 at 03:00 Acetaminophen (Tylenol Tab) 650 mg Q6H PRN PO PAIN LEVEL 1-3 OR FEVER Last administered on 12/06/16 16:05; Admin Dose 650 MG; Start 12/05/16 at 03:00 Morphine Sulfate (morphine) 2 mg Q4H PRN IV PAIN LEVEL 7-10 Last administered on 12/11/16 08:49; Admin Dose 2 MG; Start 12/05/16 at 03:00 Docusate Sodium (Colace) 100 mg Q12H PRN PO CONSTIPATION; Start 12/05/16 at 03: 00 Bisacodyl (Dulcolax) 5 mg DAILY PRN PO CONSTIPATION Last administered on 18:16; Admin Dose 5 MG; Start 12/05/16 at 03:00 Aspirin (Aspirin) 81 mg DAILY PO Last administered on 12/15/16 09:46; Admin Dose 81 MG; Start 12/05/16 at 09:00 Docusate Sodium (Colace) 100 mg BID PO Last administered on 12/15/16 09:46; Admin Dose 100 MG; Start 12/05/16 at 09:00 Ferrous Sulfate (Ferrous Sulfate (Ec)) 325 mg DAILY PO Last administered on 09:46; Admin Dose 325 MG; Start 12/05/16 at 09:00 Multivitamins Therapeutic (Theragran) 1 tab DAILY PO Last administered on 09:46; Admin Dose 1 TAB; Start 12/05/16 at 09:00 Ondansetron HCl (Zofran Tab) 8 mg BID PRN PO NAUSEA AND/OR VOMITING; Start 02/11 at 03:00 Senna (Senokot) 1 tab QHS PO Last administered on 12/14/16 21:35; Admin Dose 1 TAB; Start 12/05/16 at 21:00 Miscellaneous Information 1 ea NOTE XX ; Start 12/05/16 at 03:00 Glucose (Glutose) 15 gm Q15M PRN PO DECREASED GLUCOSE; Start 12/05/16 at 03:00 Glucose (Glutose) 22.5 gm Q15M PRN PO DECREASED GLUCOSE; Start 12/05/16 at 03: 00 Dextrose (D50w Syringe) 25 ml Q15M PRN IV DECREASED GLUCOSE; Start 12/05/16 at 03:00 Dextrose (D50w Syringe) 50 ml Q15M PRN IV DECREASED GLUCOSE; Start 12/05/16 at 03:00 Glucagon (Glucagen) 1 mg Q15M PRN IM DECREASED GLUCOSE; Start 12/05/16 at 03:00 Glucose (Glutose) 15 gm Q15M PRN BUCCAL DECREASED GLUCOSE; Start 12/05/16 at 03 :00 Insulin Glargine (Lantus) 30 unit Q24H SC Last administered on 12/15/16 06:57 ; Admin Dose 30 UNIT; Start 12/05/16 at 06:00 Ranitidine HCl (Zantac) 150 mg HS PO Last administered on 12/14/16 21:35; Admin Dose 150 MG; Start 12/05/16 at 21:00 Diagnostic Test (Pha) (Accu-Chek) 1 ea 02 XX Last administered on 12/14/16 01: 50; Admin Dose 1 EA; Start 12/08/16 at 02:00 Collagenase 1 applic 1 applic DAILY TOP Last administered on 12/15/16 09:47; Admin Dose 1 APPLIC; Start 12/08/16 at 09:00 Sodium Chloride (NS) 1,000 ml @ 50 mls/hr Q20H IV Last administered on 09:48; Admin Dose 50 MLS/HR; Start 12/09/16 at 17:00 Heparin Sodium (Porcine) (Heparin (5000 Units/0.5 ml)) 5,000 unit Q8 SC Last administered on 12/15/16 06:31; Admin Dose 5,000 UNIT; Start 12/11/16 at 22:00 POOL PALACIOS Dec 15, 2016 11:19
[2016-12-15 14:00] VITALS: BP 120/56; RESP 18
[2016-12-15 19:31] VITALS: BP 110/56; RESP 18
[2016-12-15] MEDS: SENNA TAB PO SCH (21:45)
[2016-12-15] MEDS: RANITIDINE 150 MG TAB PO SCH (21:45)
[2016-12-16 01:31] VITALS: BP 117/58; RESP 18
[2016-12-16] MEDS: ACCU-CHEK XX SCH ×5 (02:00→21:00)
[2016-12-16] MEDS: INSULIN GLARGINE [LANtus] 3 ML PEN SC SCH (05:36)
[2016-12-16] MEDS: HEPARIN 5,000 UNIT/0.5 ML VIAL SC SCH ×3 (05:36→21:43)
[2016-12-16 06:44] LABS: ABNORMAL IP MESSAGE 1; BASOPHILS % 0.7 % (0.0-2.0); EOSINOPHILS # 0.2 10^3/ul (0.0-0.5); EOSINOPHILS % 3.6 % (0.0-7.0); HEMATOCRIT 28.4 % (37.0-47.0); LYMPHOCYTES % 21.7 % (15.0-51.0); MEAN CORPUSCULAR HEMOGLOBIN 31.5 pg (29.0-33.0); MEAN CORPUSCULAR HGB CONC 31.7 g/dl (32.0-37.0); MEAN CORPUSCULAR VOLUME 99.3 fl (82.0-101.0); MEAN PLATELET VOLUME 10.1 fl (7.4-10.4); MONOCYTE # 0.3 10^3/ul (0.3-0.9); MONOCYTES % 7.6 % (0.0-11.0); NEUTROPHILS % 66.2 % (39.0-77.0); PLATELET COUNT 87 10^3/UL (140-415); RED BLOOD COUNT 2.86 10^6/ul (4.20-5.40); RED CELL DISTRIBUTION WIDTH 16.7 % (11.5-14.5); WHITE BLOOD COUNT 4.5 10^3/ul (4.8-10.8)
[2016-12-16 06:52] LABS: POSITIVE DIFF @See below
[2016-12-16 07:13] LABS: CALCIUM 9.6 mg/dl (8.4-10.2); CREATININE 0.98 mg/dl (0.44-1.00); MAGNESIUM 2.1 mg/dl (1.7-2.5); PHOSPHORUS 3.2 mg/dl (2.5-4.9); POTASSIUM 3.3 mmol/L (3.5-5.1)
[2016-12-16 07:36] VITALS: BP 126/61; RESP 18
[2016-12-16] MEDS: INSULIN ASPART [NOVOLOG] 3 ML PEN SC SCH ×4 (07:56→21:00)
[2016-12-16] MEDS: SOD CHLORIDE 0.9% 1,000 ML IV SCH ×2 (09:00→19:30)
[2016-12-16] MEDS: COLLAGENASE 30 GM TUBE TOP SCH (09:14)
[2016-12-16] MEDS: FERROUS SULFATE (EC) 325 MG TAB PO SCH (09:14)
[2016-12-16] MEDS: MULTIVITAMINS THERAPEUTIC TAB PO SCH (09:14)
[2016-12-16] MEDS: ASPIRIN 81 MG TAB PO SCH (09:14)
[2016-12-16] MEDS: DOCUSATE SODIUM 100 MG CAP PO SCH ×2 (09:14→21:32)
[2016-12-16] MEDS: BALSAM PERU/CASTOR OIL 60 GM TUBE TOP SCH ×2 (09:14→21:32)
[2016-12-16 14:21] VITALS: BP 114/62; RESP 18
--- NOTE | 2016-12-16 17:13 | PN ---
Date/Time of Note Date/Time of Note DATE: 12/16/16 TIME: 17:12 Assessment/Plan VTE Prophylaxis VTE Prophylaxis Intervention: heparin Lines/Catheters IV Catheter Type (from [facility]): Peripheral IV Urinary Cath still in place: No Assessment/Plan Chief Complaint/Hosp Course 1. Urinary tract infection with E. coli ESBL and Klebsiella pneumoniae. Status post IV antibiotics as per infectious diseases. 2. Acute renal failure. The patient was on hemodialysis at one point of time. Currently off hemodialysis. Status post removal of permacath by vascular surgery. 3. Iron deficiency anemia continue iron supplements. 4. Type 2 diabetes mellitus. Blood sugars well controlled. On sliding scale insulin along with basal insulin. 5. Multiple pressure ulcers. Continue local wound care. Continue pressure redistribution surface. 6. Deconditioning. Status post evaluation by physical therapy. The patient is more or less sedentary. 7. Fluids, electrolytes, and nutrition. Regular diet. 8. DVT prophylaxis. Subcutaneous heparin. 9. Plan. Continue current management. Will discharge the patient to a board and care once a bed is available. Case discussed with Dr. Hutchinson. Problems: Subjective 24 Hr Interval Summary Free Text/Dictation Denies any pain. Exam/Review of Systems Vital Signs Vitals Vital Signs Date Time Temp Pulse Resp B/P Pulse Ox O2 Delivery O2 Flow Rate FiO2 12/16/16 14:21 97.9 81 18 114/62 99 Intake and Output 12/15/16 12/15/16 12/16/16 15:00 23:00 07:00 Intake Total 600 ml 690 ml 600 ml Balance 600 ml 690 ml 600 ml Exam General: Thin, frail looking 60 year-old female lying in bed in no apparent distress. HEENT: Normocephalic, atraumatic. Eyes: Anicteric sclerae, conjunctivae clear. ENT: Nasal septum midline, oral mucosa moist. Neck supple, no JVD noticed. Respiratory: Bilaterally diminished breath sounds. No use of accessory muscles of respiration. No adventitious breath sounds. Cardiovascular: S1, S2 heard. Regular rate and rhythm. Abdomen: Soft, nontender, and nondistended. Bowel sounds positive in all 4 quadrants. Genitourinary: Deferred. Extremities: No cyanosis, no clubbing, no edema. Peripheral pulses palpable. Neurologic: Cranial nerves II through XII grossly intact. The patient is awake, alert, and oriented. Results Result Diagram: 12/16/16 0520 12/16/16 0520 Results 24 hrs Laboratory Tests Test 12/15/16 17:43 12/15/16 21:45 12/16/16 02:13 12/16/16 05:20 Bedside Glucose 168 207 156 White Blood Count 4.5 #L Red Blood Count 2.86 L Hemoglobin 9.0 L Hematocrit 28.4 L Mean Corpuscular Volume 99.3 Mean Corpuscular Hemoglobin 31.5 Mean Corpuscular Hemoglobin Concent 31.7 L Red Cell Distribution Width 16.7 H Platelet Count 87 L Mean Platelet Volume 10.1 Neutrophils % 66.2 Lymphocytes % 21.7 Monocytes % 7.6 Eosinophils % 3.6 Basophils % 0.7 Nucleated Red Blood Cells % 0.0 Neutrophils # (Manual) 3 Lymphocytes # 1.0 Monocytes # 0.3 Eosinophils # 0.2 Basophils # 0.0 Nucleated Red Blood Cells # 0.0 Sodium Level 138 Potassium Level 3.3 L Chloride Level 112 H Carbon Dioxide Level 18 L Anion Gap 11 Blood Urea Nitrogen 36 H Creatinine 0.98 Glucose Level 144 Calcium Level 9.6 Phosphorus Level 3.2 Magnesium Level 2.1 Test 12/16/16 05:29 12/16/16 07:53 12/16/16 12:34 Bedside Glucose 140 97 147 Medications Medications Current Medications Ondansetron HCl (Zofran Inj) 4 mg Q6H PRN IV NAUSEA AND/OR VOMITING; Start 02/11 at 03:00 Acetaminophen (Tylenol Tab) 650 mg Q6H PRN PO PAIN LEVEL 1-3 OR FEVER Last administered on 12/06/16 16:05; Admin Dose 650 MG; Start 12/05/16 at 03:00 Morphine Sulfate (morphine) 2 mg Q4H PRN IV PAIN LEVEL 7-10 Last administered on 12/11/16 08:49; Admin Dose 2 MG; Start 12/05/16 at 03:00 Docusate Sodium (Colace) 100 mg Q12H PRN PO CONSTIPATION; Start 12/05/16 at 03: 00 Bisacodyl (Dulcolax) 5 mg DAILY PRN PO CONSTIPATION Last administered on 18:16; Admin Dose 5 MG; Start 12/05/16 at 03:00 Aspirin (Aspirin) 81 mg DAILY PO Last administered on 12/16/16 09:14; Admin Dose 81 MG; Start 12/05/16 at 09:00 Docusate Sodium (Colace) 100 mg BID PO Last administered on 12/16/16 09:14; Admin Dose 100 MG; Start 12/05/16 at 09:00 Ferrous Sulfate (Ferrous Sulfate (Ec)) 325 mg DAILY PO Last administered on 09:14; Admin Dose 325 MG; Start 12/05/16 at 09:00 Multivitamins Therapeutic (Theragran) 1 tab DAILY PO Last administered on 09:14; Admin Dose 1 TAB; Start 12/05/16 at 09:00 Ondansetron HCl (Zofran Tab) 8 mg BID PRN PO NAUSEA AND/OR VOMITING; Start 02/11 at 03:00 Senna (Senokot) 1 tab QHS PO Last administered on 12/15/16 21:45; Admin Dose 1 TAB; Start 12/05/16 at 21:00 Miscellaneous Information 1 ea NOTE XX ; Start 12/05/16 at 03:00 Glucose (Glutose) 15 gm Q15M PRN PO DECREASED GLUCOSE; Start 12/05/16 at 03:00 Glucose (Glutose) 22.5 gm Q15M PRN PO DECREASED GLUCOSE; Start 12/05/16 at 03: 00 Dextrose (D50w Syringe) 25 ml Q15M PRN IV DECREASED GLUCOSE; Start 12/05/16 at 03:00 Dextrose (D50w Syringe) 50 ml Q15M PRN IV DECREASED GLUCOSE; Start 12/05/16 at 03:00 Glucagon (Glucagen) 1 mg Q15M PRN IM DECREASED GLUCOSE; Start 12/05/16 at 03:00 Glucose (Glutose) 15 gm Q15M PRN BUCCAL DECREASED GLUCOSE; Start 12/05/16 at 03 :00 Insulin Glargine (Lantus) 30 unit Q24H SC Last administered on 12/16/16 05:36 ; Admin Dose 30 UNIT; Start 12/05/16 at 06:00 Ranitidine HCl (Zantac) 150 mg HS PO Last administered on 12/15/16 21:45; Admin Dose 150 MG; Start 12/05/16 at 21:00 Diagnostic Test (Pha) (Accu-Chek) 1 ea 02 XX Last administered on 12/14/16 01: 50; Admin Dose 1 EA; Start 12/08/16 at 02:00 Collagenase 1 applic 1 applic DAILY TOP Last administered on 12/16/16 09:14; Admin Dose 1 APPLIC; Start 12/08/16 at 09:00 Sodium Chloride (NS) 1,000 ml @ 50 mls/hr Q20H IV Last administered on 09:48; Admin Dose 50 MLS/HR; Start 12/09/16 at 17:00 Heparin Sodium (Porcine) (Heparin (5000 Units/0.5 ml)) 5,000 unit Q8 SC Last administered on 12/16/16 14:55; Admin Dose 5,000 UNIT; Start 12/11/16 at 22:00 MIKAYLA GONZALEZ NP Dec 16, 2016 17:13
[2016-12-16] MEDS ORDERED: POTASSIUM CHLORIDE (SR) 10 MEQ TAB PO ONE (17:30)
[2016-12-16 19:39] VITALS: BP 130/74; RESP 18
[2016-12-16] MEDS: SENNA TAB PO SCH (21:32)
[2016-12-16] MEDS: RANITIDINE 150 MG TAB PO SCH (21:32)
[2016-12-16] MEDS: MEGESTROL (40 MG/ML) 10ML CUP PO SCH (21:32)
[2016-12-17] MEDS: ACCU-CHEK XX SCH ×3 (01:03→11:42)
[2016-12-17 02:00] VITALS: BP 130/73; RESP 18
[2016-12-17] MEDS: SOD CHLORIDE 0.9% 1,000 ML IV SCH (05:00)
[2016-12-17 05:43] LABS: ABNORMAL IP MESSAGE 1; BASOPHILS % 0.6 % (0.0-2.0); EOSINOPHILS # 0.2 10^3/ul (0.0-0.5); EOSINOPHILS % 3.5 % (0.0-7.0); HEMATOCRIT 26.8 % (37.0-47.0); HEMOGLOBIN 8.6 g/dl (12.0-16.0); LYMPHOCYTES # 1.2 10^3/ul (0.8-2.9); LYMPHOCYTES % 23.4 % (15.0-51.0); MEAN CORPUSCULAR HEMOGLOBIN 31.2 pg (29.0-33.0); MEAN CORPUSCULAR HGB CONC 32.1 g/dl (32.0-37.0); MEAN CORPUSCULAR VOLUME 97.1 fl (82.0-101.0); MEAN PLATELET VOLUME 10.5 fl (7.4-10.4); MONOCYTE # 0.4 10^3/ul (0.3-0.9); MONOCYTES % 8.1 % (0.0-11.0); NEUTROPHILS % 64.2 % (39.0-77.0); PLATELET COUNT 91 10^3/UL (140-415); RED BLOOD COUNT 2.76 10^6/ul (4.20-5.40); RED CELL DISTRIBUTION WIDTH 16.9 % (11.5-14.5); WHITE BLOOD COUNT 5.2 10^3/ul (4.8-10.8)
[2016-12-17] MEDS: INSULIN GLARGINE [LANtus] 3 ML PEN SC SCH (05:56)
[2016-12-17] MEDS: HEPARIN 5,000 UNIT/0.5 ML VIAL SC SCH (05:56)
[2016-12-17 06:11] LABS: PHOSPHORUS 2.8 mg/dl (2.5-4.9)
[2016-12-17 06:13] LABS: CALCIUM 10.1 mg/dl (8.4-10.2); POTASSIUM 3.9 mmol/L (3.5-5.1)
[2016-12-17 06:25] LABS: POSITIVE DIFF @See below
[2016-12-17 07:37] VITALS: BP 123/65; RESP 18
[2016-12-17] MEDS: INSULIN ASPART [NOVOLOG] 3 ML PEN SC SCH ×2 (07:51→11:54)
[2016-12-17] MEDS: FERROUS SULFATE (EC) 325 MG TAB PO SCH (08:54)
[2016-12-17] MEDS: MEGESTROL (40 MG/ML) 10ML CUP PO SCH (08:54)
[2016-12-17] MEDS: DOCUSATE SODIUM 100 MG CAP PO SCH (08:54)
[2016-12-17] MEDS: ASPIRIN 81 MG TAB PO SCH (08:54)
[2016-12-17] MEDS: MULTIVITAMINS THERAPEUTIC TAB PO SCH (08:54)
[2016-12-17] MEDS: COLLAGENASE 30 GM TUBE TOP SCH (08:55)
[2016-12-17] MEDS: BALSAM PERU/CASTOR OIL 60 GM TUBE TOP SCH (08:55)
--- NOTE | 2016-12-17 10:29 | PDOCDIS ---
Discharge Instructions DIAGNOSIS Discharge Diagnosis Status post sepsis CONDITION Patient Condition: Stable HOME CARE INSTRUCTIONS: Diet Instructions: Regular FOLLOW UP/APPOINTMENTS Follow-up Plan Kvng Kimble MD Specialty: Internal Medicine Office Address: [address] [place], [place] [id number] Office OTHER ORDERS: Other Orders: 1. Take medications as per prescription. 2. Take a regular diet. 3. Follow-up with your primary care physician 1 week. If you do not have a primary care physician, please call Dr. Kvng Kimble's office. 4. Encourage frequent change of position in the bed. MIKAYLA GONZALZE NP Dec 17, 2016 10:29
[2016-12-17] MEDS ORDERED: ALPR0.5T PO (10:38)
[2016-12-17] MEDS ORDERED: SITA50TA2 PO (10:38)
[2016-12-17 13:22] VITALS: BP 121/66; RESP 18
--- NOTE | 2016-12-17 16:40 | DS ---
DATE OF ADMISSION: 12/04/2016 DATE OF DISCHARGE: 12/17/2016 FINAL DIAGNOSES: 1. Sepsis secondary to underlying urinary tract infection. 2. Urinary tract infection with Eschericia coli extended spectrum beta lactamases (ESBL) and Klebsiella pneumonia. 3. Acute renal failure. 4. Iron deficiency anemia. 5. Type 2 diabetes mellitus. 6. Multiple pressure ulcers. 7. Deconditioning. CONSULTANTS: 1. Dr. Patrice Burr, Nephrology. 2. Dr. Alberto Bazzi, Infectious Disease. 3. Dr. Paco New, Vascular Surgery. HOSPITAL COURSE: This is a 60-year-old female, who was brought in by ambulance from a rehab facility for chief complaint of chest pressure. The patient's presenting symptoms were very vague. As per the patient's daughter who was present at bedside the patient had a prolonged stay at [facility] for some type of intra-abdominal infection or abscess. She was apparently hospitalized for 4 months and then recently was discharged to [place] [facility] facility. The patient is more or less bedridden. The patient had a Robert catheter in place. The patient had a right chest wall hemodialysis catheter placed during the hospitalization at [facility]. The patient had no leukocytosis. However, the patient was noticed to be febrile. The patient's chest x-ray was negative for any acute infiltrates. The patient's abdominal ultrasound was showing diffuse heterogenous liver with nodular surface and splenomegaly. Given the patient's history of present illness, her comorbidities and the diagnostic findings, a clinical decision was made to admit the patient inpatient setting to have her further evaluated. The patient was admitted to inpatient setting. A Nephrology consult was obtained. The patient was evaluated by Nephrology and the patient did not require any hemodialysis as per Nephrology. Hence Vascular Surgery was consulted and vascular surgeon removed the patient's right chest wall dialysis catheter on 12/09/2016. The patient had no evidence of uremia and fluid overload. The patient's creatinine remained more or less stable with almost normal creatinine of 1.00 on the day of her discharge. The patient's urine culture showed positive E. coli ESBL and Klebsiella pneumonia. The patient was maintained on antibiotics as per Infectious Diseases. The patient had no evidence of any septic shock. The patient had multiple decubitus ulcers. Wound Care was following the patient. Wound care was doing local wound care. The patient has underlying type 2 diabetes mellitus. The patient was maintained on sliding scale insulin along with basal insulin. The patient's blood sugars were well controlled and the patient had a hemoglobin A1c of 5.2. The patient was noted to have underlying iron deficiency anemia. She was maintained on iron supplements for the same. The patient was noticed to be severely deconditioned. The patient is stable for discharge back to her board and care. The patient has no evidence of any sepsis at this time. DISCHARGE DISPOSITION/PLAN: The patient will be discharged to [facility]. The patient's family was instructed to have the patient take medications as per prescription. The patient can take a regular diet. The patient's family was instructed to take the patient to primary care physician in 1 week. The patient's family was encouraged on frequent change of positions while in bed. The patient's family verbalized understanding of the discharge instructions. DISCHARGE CONDITION: Stable. DISCHARGE MEDICATIONS: 1. Xanax 0.5 mg p.o. q.8 hours p.r.n. anxiety. 2. Januvia 50 mg p.o. daily. 3. Aspirin 81 mg. 4. Vitamin D2 50,000 units p.o. every week. 5. Ferrous sulfate 325. 6. Lantus insulin 30 units subcutaneous q. 24 hours. 7. Multivitamin 1 tab p.o. daily. 8. MiraLAX 17 g p.o. daily p.r.n. as needed for constipation. 9. Senna laxative 1 tab p.o. bedtime. PERTINENT LABS AND DIAGNOSTIC PROCEDURES: 1. 12/09/2026, removal of right chest wall dialysis catheter. 2. Urine culture from 12/12/2016, positive for Klebsiella pneumoniae and E. coli ESBL. 3. Hemoglobin A1c 5.2. 4. Iron panel, iron 23, TIBC 220, iron saturation 10, and ferritin 525. 5. Latest CBC, WBC 5.8, hemoglobin 8.6, hematocrit 26.8, and platelet count 91. 6. Latest BMP, sodium 144, potassium 3.9, chloride 107, anion gap 7, BUN 47, creatinine 1.00, glucose 97, calcium 10.1, phosphorus 2.8, magnesium 2.0. At this time I would like to thank all the consultants for seeing the patient, and providing clinical recommendations. Approximately 40 minutes was spent on coordinating the discharge of this patient. Dictated By: Louis Paz NP /godfrey/osmar /Document#: [id number] MTDD
== END 2016-12-17 13:40 | disposition home or self-care (01) | DRG 313 ==
LOC: E/R 18:50 → MS4 22:10 → MS2 12-07 19:06
PROVIDERS: ADMIT Family Medicine; ATTEND Family Medicine
PROC: 05PYX3Z Removal of Infusion Device from Upper Vein, External Approach (ICD-10-PCS; principal; 2016-12-09)
DX: R07.89 Other chest pain (principal); I25.2 Old myocardial infarction; A41.9 Sepsis, unspecified organism; N17.9 Acute kidney failure, unspecified; L89.154 Pressure ulcer of sacral region, stage 4; E46 Unspecified protein-calorie malnutrition; D69.6 Thrombocytopenia, unspecified; E87.1 Hypo-osmolality and hyponatremia; N39.0 Urinary tract infection, site not specified; G72.89 Other specified myopathies; Z68.35 Body mass index [BMI] 35.0-35.9, adult; K74.69 Other cirrhosis of liver; D63.8 Anemia in other chronic diseases classified elsewhere; B96.1 Klebsiella pneumoniae [K. pneumoniae] as the cause of diseases classified elsewhere; Z16.12 Extended spectrum beta lactamase (ESBL) resistance; B96.20 Unspecified Escherichia coli [E. coli] as the cause of diseases classified elsewhere; Z86.19 Personal history of other infectious and parasitic diseases; D50.9 Iron deficiency anemia, unspecified; Z74.01 Bed confinement status
CPT/HCPCS: 71010; 76700; 80048; 80053; 80150; 81001; 81003; 82550; 82553; 82570; 82728; 82962; 83036; 83540; 83735; 83880; 83970; 84100; 84155; 84165; 84443; 84484; 85025; 85610; 85730; 87070; 87086; 93005; 93306; 96374; 96375; 97003; 97110; 97163; 97166; 97530; 97535; J0278; J1335; J1644; J1815; J1885; J2270; J2405; J2916; J3480; J7030